=== PATIENT | female | born 1935 | race Caucasian/White ===

== ENCOUNTER 2018-04-27 11:43 | Inpatient (IN) ==
--- NOTE | 2018-04-27 12:15 | ED ---
HPI General Chief complaint: Pain: Chronic Stated complaint: Fall Time Seen by Provider: 04/27/18 11:53 Source: patient Mode of arrival: EMS Limitations: no limitations History of Present Illness HPI Narrative: The patient is a 82-year-old female who presents to the emergency department via EMS for multiple complaints. The patient states she has a history of breast cancer, bilateral, 2 different forms of breast cancer. The patient is followed by her oncologist, Dr. Sharma. The patient was taken an oral chemotherapeutic agent, however, is no longer taking oral chemotherapeutic agent. The patient was recently placed on OxyContin 2 days ago and complains of generalized pain and constipation. The patient states the medications were started 2 days ago, however, she has not had a good bowel movement in the last 5 days. The patient tried an enema at home with minimal relief. She does complain of mild nausea without any vomiting. She does complain of some generalized abdominal pain with palpation, however, denies any abdominal pain at rest. She also complains of generalized malaise and diffuse body aches. The patient states she had fluid taken off of her lungs 2 days ago , fell yesterday, but denies any injuries with the fall. 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 Symptoms are moderate. There are no current alleviating factors. The patient was noted to have an oxygen saturation level by EMS at home of 90% on room air, EMS put the patient on 4 L. On 2 L in the emergency department her O2 sat was 94%. She denies any cough, does note mild shortness of breath, but denies any accompanying chest pain. She denies any dysuria, frequency, or urgency. MD Complaint: generalized weakness and lack of energy Onset (ago): day(s) Duration: constant Location: generalized Migration: none Severity: moderate Severity scale (1-10): 5 Quality: aching Relieving factors: none Exacerbating factors: none Context: new medication and history of similar Associated symptoms: nausea/vomiting, myalgias and shortness of breath Related Data Home Medications Medication Instructions Recorded Confirmed oxycodone [OxyContin] 5 mg PO DAILY PRN 04/27/18 04/27/18 Allergies Allergy/AdvReac Type Severity Reaction Status Date / Time diatrizoate meglumine Allergy Severe HIVES Verified 04/27/18 11:53 gadobenic acid Allergy Severe HIVES Verified 04/27/18 11:53 gadodiamide Allergy Severe HIVES Verified 04/27/18 11:53 gadoteridol Allergy Severe HIVES Verified 04/27/18 11:53 iodixanol Allergy Severe HIVES Verified 04/27/18 11:53 iohexol Allergy Severe HIVES Verified 04/27/18 11:53 Review of Systems ROS: all other systems reviewed are negative [facility] Medical History Medical History Breast cancer (Acute) Surgical history unknown (Acute) Social History Social History Smoking Status: Unknown if ever smoked How Often Do You Have a Drink Containing Alcohol: Never Recent Travel in [facility] within the Last 8 Weeks: No Recent Out of Country Travel within the Last 8 Weeks: No Immunization History Tetanus Immunization: Unsure Hx Influenza Vaccine This Season: No Exam Narrative Exam Narrative: GENERAL: Awake, alert, pleasant 82-year-old female who appears her stated age and is in mild respiratory distress. SKIN: Focused skin assessment warm/dry. HEAD: Atraumatic. Normocephalic. EYES: Pupils equal and round. Pupils are 2 mm bilateral and reactive. ENT: No nasal bleeding or discharge. Upper and lower dentures are in place. NECK: Trachea midline. No JVD. CARDIOVASCULAR: Regular, tachycardic with a heart rate of 115. RESPIRATORY: No accessory muscle use. Few crackles in the right base noted. GASTROINTESTINAL: Abdomen soft, non-tender, nondistended. No rebound tenderness. Rectal exam: The exam was performed in the presence of a female nurse. No fecal impaction noted. MUSCULOSKELETAL: No obvious deformities. No clubbing. No cyanosis. No edema. NEUROLOGICAL: Awake and alert. No obvious cranial nerve deficits. Motor grossly within normal limits. Normal speech. Patient is oriented to person, place, month, year, and diabetes trainer. PSYCHIATRIC: Appropriate mood and affect; insight and judgment normal. Course Consultations Consultation #1: I discussed the patient with the residents at 2:44 PM who agree with admission. Time: 14:44 Initial Documented Vital Signs Temperature 98.3 F 04/27/18 11:55 Pulse Rate 116 H 04/27/18 11:55 Respiratory Rate 16 04/27/18 11:55 Blood Pressure 142/60 H 04/27/18 11:55 Pulse Oximetry 90 L 04/27/18 11:55 Last Documented Vital Signs Temperature 98.3 F 04/27/18 11:55 Pulse Rate 116 H 04/27/18 11:55 Respiratory Rate 16 04/27/18 11:55 Blood Pressure 142/60 H 04/27/18 11:55 Pulse Oximetry 90 L 04/27/18 11:55 Medical Decision Making MDM Narrative Medical decision making narrative: IV was established, labs are drawn and sent, the patient was placed on cardiac telemetry monitoring and continuous pulse oximetry monitoring. EKG was ordered and interpreted. Chest x-ray and x-ray of the abdomen, upright, were ordered. Rectal exam was performed, there is no fecal impaction. Lactic acid was sent to lab. UA was sent to lab. The patient was administered normal saline 500 cc as a bolus and Zofran 4 mg intravenously for her nausea. The patient's white count was elevated at 38.1. Calcium level was elevated greater than 12. The patient appears to have hypercalcemia, might be from metastatic disease. The patient was administered a second 500 cc bolus. The patient does have changes on her x-ray, possible pneumonia with elevated white count, tachycardia, and hypoxia. Therefore, the patient was covered with cefepime and Zithromax. The patient will be admitted to the on-call medical service. Medical Screen Exam Complete: Yes Emergency Medical Condition: Yes Lab Data Lab results reviewed: Yes I reviewed the patient's lab results. Lab results narrative: White count is elevated at 38.1. Calcium levels elevated greater than 12. Result diagrams: 04/27/18 12:31 04/27/18 12:31 Lab Results 04/27/18 04/27/18 04/27/18 Range/Units 12:31 12:31 13:20 WBC 38.1 H (4.0-11.0) th/mm3 RBC 4.25 (4.00-5.30) mil/mm3 Hgb 12.1 (11.6-15.3) gm/dL Hct 35.6 (35.0-46.0) % MCV 83.7 (80.0-100.0) fL MCH 28.4 (27.0-34.0) pg MCHC 33.9 (32.0-36.0) % RDW 13.1 (11.6-17.2) % Plt Count 506 H (150-450) th/mm3 MPV 7.7 (7.0-11.0) fL Prelim Diff (Auto) Slide review pending Neut % (Auto) 92.6 H (16.0-70.0) % Lymph % (Auto) 3.0 L (9.0-44.0) % Berks % (Auto) 3.9 (0.0-8.0) % Eos % (Auto) 0.1 (0.0-4.0) % Baso % (Auto) 0.4 (0.0-2.0) % Neut # (Auto) 35.3 H (1.8-7.7) th/mm3 Lymph # (Auto) 1.2 (1.0-4.8) th/mm3 Berks # (Auto) 1.5 H (0.0-0.9) th/mm3 Eos # (Auto) 0.0 (0.0-0.4) th/mm3 Baso # (Auto) 0.2 (0.0-0.2) th/mm3 WBC Differential Manual diff final Seg Neuts % (Manual) 90 H (16-70) % Band Neuts % (Manual) 3 (0-6) % Lymphocytes % (Manual) 1 L (9-44) % Monocytes % (Manual) 6 (0-8) % Abs Neuts (Manual) 35.4 H (1.8-7.7) th/mm3 Differential Comment . Toxic Vacuolation Present H (None) Platelet Estimate High H (Normal) Platelet Morphology Normal (Normal) RBC Morphology Normal (Normal) Sodium 129 L (136-145) meq/L Potassium 4.2 (3.5-5.1) meq/L Chloride 90 L (98-107) meq/L Carbon Dioxide 25.4 (21.0-32.0) meq/L Anion Gap 14 (5-15) meq/L BUN 16 (7-18) mg/dL Creatinine 1.16 H (0.50-1.00) mg/dL Estimated GFR 45 L (>89) mL/min Random Glucose 238 H (74-106) mg/dL Lactic Acid (0.4-2.0) mmol/L Calcium 12.4 H* (8.5-10.1) mg/dL Prot Corrected Calcium (8.5-10.1) mg/dL Magnesium 1.7 (1.5-2.5) mg/dL Total Bilirubin 0.5 (0.2-1.0) mg/dL AST 22 (15-37) U/L ALT 21 (10-53) U/L Alkaline Phosphatase 99 (45-117) U/L Total Creatine Kinase 60 (26-192) U/L Troponin I 0.02 (0.02-0.05) ng/mL Total Protein 6.2 L (6.4-8.2) g/dL Albumin 2.2 L (3.4-5.0) g/dL TSH 0.838 (0.358-3.740) uIU/mL Urine Color Yesenia (Yellw/Straw) Urine Clarity Cloudy H (Clear) Urine pH 5.0 (5.0-8.5) Ur Specific Breaks 1.016 (1.002-1.035) Urine Protein 30 H (Neg-Trace) mg/dL Urine Glucose (UA) 150 H (Negative) mg/dL Urine Ketones 20 (Negative) mg/dL Urine Occult Blood Negative (Negative) Urine Nitrate Negative (Negative) Urine Bilirubin Negative (Negative) Urine Urobilinogen 2.0 H (Less than 2) mg/dL Ur Leukocyte Esterase Negative (Negative) Urine RBC 3 (0-3) /hpf Urine WBC 3 (0-5) /hpf Ur Squamous Epith Cells 2 (0-5) /hpf Amorphous Sediment Rare H (None) /hpf Urine Bacteria Moderate H (None) /hpf Hyaline Casts 45 (0-3) /lpf Urine Mucus Few H (Occasional) /lpf Micro UA Comment Cath-culture ind Ur Microscopic Review Not Reportable Urine Culture Comments Cath-cult indicated 04/27/18 Range/Units 13:21 WBC (4.0-11.0) th/mm3 RBC (4.00-5.30) mil/mm3 Hgb (11.6-15.3) gm/dL Hct (35.0-46.0) % MCV (80.0-100.0) fL MCH (27.0-34.0) pg MCHC (32.0-36.0) % RDW (11.6-17.2) % Plt Count (150-450) th/mm3 MPV (7.0-11.0) fL Prelim Diff (Auto) Neut % (Auto) (16.0-70.0) % Lymph % (Auto) (9.0-44.0) % Berks % (Auto) (0.0-8.0) % Eos % (Auto) (0.0-4.0) % Baso % (Auto) (0.0-2.0) % Neut # (Auto) (1.8-7.7) th/mm3 Lymph # (Auto) (1.0-4.8) th/mm3 Berks # (Auto) (0.0-0.9) th/mm3 Eos # (Auto) (0.0-0.4) th/mm3 Baso # (Auto) (0.0-0.2) th/mm3 WBC Differential Seg Neuts % (Manual) (16-70) % Band Neuts % (Manual) (0-6) % Lymphocytes % (Manual) (9-44) % Monocytes % (Manual) (0-8) % Abs Neuts (Manual) (1.8-7.7) th/mm3 Differential Comment Toxic Vacuolation (None) Platelet Estimate (Normal) Platelet Morphology (Normal) RBC Morphology (Normal) Sodium (136-145) meq/L Potassium (3.5-5.1) meq/L Chloride (98-107) meq/L Carbon Dioxide (21.0-32.0) meq/L Anion Gap (5-15) meq/L BUN (7-18) mg/dL Creatinine (0.50-1.00) mg/dL Estimated GFR (>89) mL/min Random Glucose (74-106) mg/dL Lactic Acid 2.0 (0.4-2.0) mmol/L Calcium (8.5-10.1) mg/dL Prot Corrected Calcium (8.5-10.1) mg/dL Magnesium (1.5-2.5) mg/dL Total Bilirubin (0.2-1.0) mg/dL AST (15-37) U/L ALT (10-53) U/L Alkaline Phosphatase (45-117) U/L Total Creatine Kinase (26-192) U/L Troponin I (0.02-0.05) ng/mL Total Protein (6.4-8.2) g/dL Albumin (3.4-5.0) g/dL TSH (0.358-3.740) uIU/mL Urine Color (Yellw/Straw) Urine Clarity (Clear) Urine pH (5.0-8.5) Ur Specific Breaks (1.002-1.035) Urine Protein (Neg-Trace) mg/dL Urine Glucose (UA) (Negative) mg/dL Urine Ketones (Negative) mg/dL Urine Occult Blood (Negative) Urine Nitrate (Negative) Urine Bilirubin (Negative) Urine Urobilinogen (Less than 2) mg/dL Ur Leukocyte Esterase (Negative) Urine RBC (0-3) /hpf Urine WBC (0-5) /hpf Ur Squamous Epith Cells (0-5) /hpf Amorphous Sediment (None) /hpf Urine Bacteria (None) /hpf Hyaline Casts (0-3) /lpf Urine Mucus (Occasional) /lpf Micro UA Comment Ur Microscopic Review Urine Culture Comments Imaging Data Attestation: I personally reviewed and interpreted this imaging study as follows : My impression: Chest x-ray reveals right lower lobe effusion/infiltrate Abdominal x-ray reveals right lower lobe effusion/infiltrate. No evidence of obstruction. Radiologist's impression: Abdomen X-Ray 04/27/18 12:06 CONCLUSION: 1. No acute abnormalities. 2. Right basilar pleural-parenchymal density. 3. Chest X-Ray 04/27/18 12:06 CONCLUSION: 1. Right basilar pleural-parenchymal density as seen on previous study. 2. Nodule left lower lobe. ECG Data EKG Prior to Arrival: No Attestation: I personally reviewed and interpreted this ECG as follows: Interpretation: EKG reveals sinus tachycardia with a heart rate of 104. Nonspecific T-wave changes. Discharge Plan Discharge Disposition Patient Disposition: 30 Still Patient Discharge Condition Condition: Stable Discharge Details Diagnosis: Sepsis, Pneumonia, Hypercalcemia, Leukocytosis Physicians Team ED Provider: Giovany Carrillo Primary Care Provider: Milana Mendez Rxs /Orders / Referrals /Forms Prescriptions: No Action oxycodone [OxyContin] 10 mg Tablet,Oral Only,Ext.Rel.12 Hr 5 mg PO DAILY PRN (Reason: Pain) RF: 0 Status ED Status: Pending Admission
--- NOTE | 2018-04-27 12:47 | XR ---
EXAM DATE: 04/27/2018 12:42 PM EDT AGE/SEX: 82 years / Female INDICATIONS: Chest pain, shortness of breath and cough. CLINICAL DATA: This is the patient's subsequent encounter. Patient reports that signs and symptoms h ave been present for 3 days and indicates a pain score of 5/10. MEDICAL/SURGICAL HISTORY: Carcinoma, breast. None. COMPARISON: [facility], CHEST EXPIRATION ONLY, 04/25/2018. [facility], CT CHEST W/O CONTRAST, 04/23/2018. . FINDINGS: A single AP view of the chest demonstrates right basilar pleural-parenchymal density. Left lung base clear. Nodule in the left lower lobe. The cardiomediastinal contours are unremarkable. Osseous stru ctures are intact. CONCLUSION: 1. Right basilar pleural-parenchymal density as seen on previous study. 2. Nodule left lower lobe. Electronically signed by: Kashif Small MD 04/27/2018 12:46 PM EDT
--- NOTE | 2018-04-27 12:48 | XR ---
EXAM DATE: 04/27/2018 12:43 PM EDT AGE/SEX: 82 years / Female INDICATIONS: Abdominal pain. Patient fell 3 days ago. CLINICAL DATA: This is the patient's initial encounter. Patient reports that signs and symptoms have been present for 3 days and indicates a pain score of 6/10. MEDICAL/SURGICAL HISTORY: Carcinoma, breast. None. COMPARISON: No prior exams available for comparison. FINDINGS: A single erect view of the abdomen demonstrates right basilar pleural-parenchymal density.No evidence of free intraperitoneal gas.The visualized bowel loops are unremarkable. Residual contrast in the ri ght colon. Lower abdomen is not included within the image CONCLUSION: 1. No acute abnormalities. 2. Right basilar pleural-parenchymal density. 3. Electronically signed by: Kashif Small MD 04/27/2018 12:47 PM EDT
[2018-04-27 12:55] LABS: Baso # (Auto) 0.2 th/mm3 (0.0-0.2); Baso % (Auto) 0.4 % (0.0-2.0); Eos % (Auto) 0.1 % (0.0-4.0); Hematocrit 35.6 % (35.0-46.0); Hemoglobin 12.1 gm/dL (11.6-15.3); Lymph # (Auto) 1.2 th/mm3 (1.0-4.8); Mean Corpuscular HGB Conc 33.9 % (32.0-36.0); Mean Corpuscular Hemoglobin 28.4 pg (27.0-34.0); Mean Corpuscular Volume 83.7 fL (80.0-100.0); Mean Platelet Volume 7.7 fL (7.0-11.0); Mono # (Auto) 1.5 th/mm3 (0.0-0.9); Mono % (Auto) 3.9 % (0.0-8.0); Neut # (Auto) 35.3 th/mm3 (1.8-7.7); Neut % (Auto) 92.6 % (16.0-70.0); Platelet Count 506 th/mm3 (150-450); Red Blood Count 4.25 mil/mm3 (4.00-5.30); Red Cell Distribution Width 13.1 % (11.6-17.2); White Blood Count 38.1 th/mm3 (4.0-11.0)
[2018-04-27] MEDS ORDERED: Sodium Chlor 0.9% Inj 500 ML IV.SIG SCH ×2 (13:00→14:00)
[2018-04-27] MEDS ORDERED: Azithromycin Inj 500 MG in Sodium Chlor 0.9% Inj 250 ML IV.SIG ONE (13:09)
[2018-04-27 13:28] LABS: Lymphocytes 1 % (9-44); Monocytes 6 % (0-8)
[2018-04-27 13:29] LABS: Albumin 2.2 g/dL (3.4-5.0); Carbon Dioxide 25.4 meq/L (21.0-32.0); Magnesium 1.7 mg/dL (1.5-2.5); Platelet Morphology Normal (Normal); Potassium 4.2 meq/L (3.5-5.1); Toxic Vacuolation Present
[2018-04-27 13:30] LABS: RBC Morphology Normal (Normal)
[2018-04-27 13:40] LABS: Thyroid Stimulating Hormone 0.838 uIU/mL (0.358-3.740); Total Protein 6.2 g/dL (6.4-8.2); Troponin I 0.02 ng/mL (0.02-0.05)
[2018-04-27 13:43] LABS: Calcium 12.4 mg/dL (8.5-10.1)
[2018-04-27 14:01] LABS: Amorphous Sediment,Urine Rare /hpf; Bacteria,Urine Moderate /hpf; Bilirubin,Urine Negative (Negative); Clarity,Urine Cloudy (Clear); Color,Urine Amber (Yellw/Straw); Glucose,Urine (UA) 150 mg/dL (Negative); Hyaline Casts,Urine 45 /lpf (0-3); Leukocyte Esterase,Urine Negative (Negative); Mucus,Urine Few /lpf (Occasional); Nitrite,Urine Negative (Negative); Specific Gravity,Urine 1.016 (1.002-1.035); Squamous Epithelial Cell,Urine 2 /hpf (0-5)
--- NOTE | 2018-04-27 14:57 | P.HPFP ---
History of Present Illness Primary Care Physician: Milana Mendez MD <Ronel Burton - 04/28/18 15:05> Milana Mendez MD <Roberta Murray 04/27/18 14:56> Chief Complaint: Weakness and shortness of breath <Roberta Murray 04/27/18 15:41> History of Present Illness: 82 year old female PMH bilateral breast cancer presents with continued weakness and shortness of breath. She was discharged this week from hospital after right pleural effusion thoracentesis. She said when she got home she was too nauseous to eat and had difficulty walking and standing from fatigue. This morning she was too weak to put in her dentures and started to fall grabbing the toilet and lowering herself to the ground. She crawled out of the bathroom and had the EMS bring her to the hospital. She says the shortness of breath is with activity. She has some intermittent chest pain that is unchanged from her earlier admission and reproducible with pressing on her chest. She has been drinking well but not eating. She had some fever at night. No change in frequency of urination, but noticed urine darker in color. She has had 5-6 days of constipation. She usually goes every other day. She tried laxatives and an enema with no relief. She's been taking the oxycodone prescribed to her this week when she was discharged for her chest pain. She was first diagnosed with breast cancer in 2009. She was receiving oral chemo therapy until a month ago when she started having weakness and shortness of breath so her oncologist, Dr. Sharma had her stop active treatment. She lives at home and takes care of her brother. Denies any drug, alcohol, or tobacco use. <Roberta Murray 04/27/18 16:34> - Diagnosis (1) Sepsis (2) Shortness of breath (3) Hypercalcemia (4) Weakness (5) Constipation (6) Bilateral breast cancer (7) Nutrition, metabolism, and development symptoms <Ronel Burton - 04/28/18 15:05> (1) Sepsis (2) Shortness of breath (3) Hypercalcemia (4) Weakness (5) Constipation (6) Bilateral breast cancer (7) Nutrition, metabolism, and development symptoms <Roberta Murray 04/27/18 16:23> Inpatient Certification: I certify that the inpatient services were ordered in accordance with Medicare regulations governing the order. This includes certification that hospital inpatient services are reasonable and necessary and in the case of services not specified as inpatient-only under 42 CFR 419.22(n), that they are appropriately provided as inpatient services in accordance to with the 2-midnight benchmark under 43 CFR 412.3(e) <MichealJovonRonel Geni 04/28/18 15:05> Review of Systems Constitutional: Reports chills, Reports fever(s), Reports weakness <Trevor Roberta James Bebo 04/27/18 15:19> Eyes: Denies change in vision <TrevorRoberta Jacob Bebo 04/27/18 15:19> Ears, Nose, Mouth, and Throat: Reports headache(s) <TrevorRoberta Jacob Bebo 15:19> Cardiovascular: Reports chest pain, Reports shortness of breath <Roberta Murray Jacob Bebo 04/27/18 15:19> Respiratory: Reports cough <Roberta Murray Jacob Bebo 04/27/18 15:19> Gastrointestinal: Reports constipation, Reports nausea, Denies abdominal pain, Denies vomiting <TrevorRoberta Jacob Bebo 04/27/18 15:19> Genitourinary: Denies painful urination, Denies urinary urgency <Roberta Murray 04/27/18 15:19> Comments: dark color urine <Roberta Murray Jacob Bebo 04/27/18 15:19> Musculoskeletal: Reports muscle weakness <Roberta Murray 04/27/18 15:19> Hematologic/Lymphatic: Denies easy bruising <Roberta Murray 04/27/18 15:19> PMFSH - History History 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, 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 <TrevorRoberta Jacbo Bebo 04/27/18 14: 56> - Medical / Surgical Hx Neg / Unobtainable Surgical History: No Previous Surgery <Roberta Murray 04/27/18 16:08> - Medical History Medical History: Medical History (Last Updated 04/27/18 @ 11:57 by Keira Thrasher) Breast cancer Surgical history unknown <MichealRonel M - 04/28/18 15:05> Medical History (Last Updated 04/27/18 @ 11:57 by Keira Thrasher) Breast cancer Surgical history unknown <Roberta Murray Jacob - 04/27/18 14:56> - Tobacco History Smoking Status: Unknown if ever smoked <TrevorRoberta James - 04/27/18 14:56> - Alcohol History How Often Do You Have a Drink Containing Alcohol: Never <Chuckie Murrayluis James - 14:56> - Travel History Recent Travel in the [facility] Within the Last 8 Weeks: No <TrevorRoberta - 14:56> Recent Travel Out of the Country Within the Last 8 Weeks: No <TrevorRoberta James - 04/27/18 14:56> - Immunization History Tetanus Immunization: Unsure <TrevorRoberta James - 04/27/18 14:56> Hx Influenza Vaccine This Season: No <TrevorRoberta - 04/27/18 14:56> Medications and Allergies Allergies Allergy/AdvReac Type Severity Reaction Status Date / Time diatrizoate meglumine Allergy Severe HIVES Verified 04/27/18 11:53 gadobenic acid Allergy Severe HIVES Verified 04/27/18 11:53 gadodiamide Allergy Severe HIVES Verified 04/27/18 11:53 gadoteridol Allergy Severe HIVES Verified 04/27/18 11:53 iodixanol Allergy Severe HIVES Verified 04/27/18 11:53 iohexol Allergy Severe HIVES Verified 04/27/18 11:53 <Ronel Burton - 04/28/18 15:05> Home Medications Medication Instructions Recorded Confirmed Type oxycodone [OxyContin] 5 mg PO DAILY PRN 04/27/18 04/27/18 History <Ronel Burton - 04/28/18 15:05> Active Medications: Active Medications Acetaminophen (Tylenol) 650 mg PO Q4H PRN PRN Reason: PAIN 1-10 AND/OR FEVER >101F Last Admin: 04/28/18 04:18 Dose: 650 mg Al Hydroxide/Mg Hydroxide (Milk Of Magnesia Liq) 30 ml PO Q12H PRN PRN Reason: Mild Constipation Bisacodyl (Dulcolax Supp) 10 mg RECTAL DAILY PRN PRN Reason: SEVERE CONSITIPATION Enoxaparin Sodium (Lovenox Inj) 40 mg SQ Q24H COOPER Last Admin: 04/27/18 18:49 Dose: Not Given Sodium Chloride (Ns Inj) 500 mls @ 0 mls/hr IV.SIG BOLUS COOPER Last Infusion: 04/27/18 14:14 Dose: Infused Sodium Chloride (Ns Inj) 500 mls @ 0 mls/hr IV.SIG BOLUS COOPER Last Infusion: 04/27/18 15:46 Dose: Infused Sodium Chloride (Ns Inj) 1,000 mls @ 150 mls/hr IV.CONT .Q6H40M COOPER Last Admin: 04/28/18 12:15 Dose: Not Given Azithromycin 500 mg/ Sodium (Chloride) 250 mls @ 250 mls/hr IV.SIG Q24H COOPER Cefepime HCl 2,000 mg/ Sodium (Chloride) 100 mls @ 200 mls/hr IV.SIG Q8H COOPER Last Infusion: 04/28/18 10:27 Dose: Infused Ondansetron HCl (Zofran Odt) 4 mg PO Q6H PRN PRN Reason: NAUSEA Senna/Docusate Sodium (So-Colace) 1 tab PO BID COOPER Last Admin: 04/28/18 09:44 Dose: 1 tab Sennosides (Senokot) 17.2 mg PO Q12H PRN PRN Reason: Moderate Constipation Sodium Chloride (Ns Flush) 2 ml IV.FLUSH PRN PRN PRN Reason: FLUSH AFTER USING IV ACCESS <Ronel Burton - 04/28/18 15:05> Active Medications Sodium Chloride (Ns Inj) 500 mls @ 0 mls/hr IV.SIG BOLUS COOPER Last Infusion: 04/27/18 14:14 Dose: Infused Sodium Chloride (Ns Inj) 500 mls @ 0 mls/hr IV.SIG BOLUS COOPER Last Admin: 04/27/18 14:30 Dose: 999 mls/hr Sodium Chloride (Ns Flush) 2 ml IV.FLUSH PRN PRN PRN Reason: FLUSH AFTER USING IV ACCESS <Roberta Murray - 04/27/18 14:56> Exam Vital signs: Vital Signs 04/27/18 16:00 04/27/18 20:00 04/27/18 20:15 Temperature 97.6 F 97.9 F Pulse Rate 102 H 103 H 104 H Respiratory Rate 19 18 Blood Pressure 141/61 H 154/65 H Pulse Oximetry 96 96 04/27/18 21:40 08/26/18 00:00 04/28/18 03:56 Temperature 97.6 F Pulse Rate 100 H 105 H Respiratory Rate 22 18 24 Blood Pressure 161/72 H Pulse Oximetry 97 97 04/28/18 04:00 04/28/18 04:01 04/28/18 04:02 Temperature 98.3 F Pulse Rate 105 H 95 H Respiratory Rate 18 Blood Pressure 129/62 Pulse Oximetry 94 L 94 L 04/28/18 08:00 04/28/18 12:00 Temperature 97.5 F L 98.4 F Pulse Rate 94 H 100 H Respiratory Rate 17 18 Blood Pressure 125/57 L 162/71 H Pulse Oximetry 95 94 L Intake & Output 04/27/18 04/28/18 04/28/18 18:59 06:59 18:59 Intake Total 1780 / 1780 1583 / 1583 100 / 100 Output Total 350 / 350 Balance 1780 / 1780 1233 / 1233 100 / 100 Intake: IV 1300 / 1300 1103 / 1103 100 / 100 NS Inj 1,000 ML @ 150 mls/hr IV 703 / 703 .CONT .Q6H40M [facility] Rx#:[id number] Azithromycin Inj 500 MG In NS 200 / 200 Inj 250 ML @ 250 mls/hr IV.SIG ONCE ONE Rx#:[id number] Maxipime Inj 2,000 MG In NS Inj 100 / 100 200 / 200 100 / 100 100 ML @ 200 mls/hr IV.SIG Q8H COOPER Rx#:[id number] NS Inj 500 ML @ Wide Open IV. 1000 / 1000 SIG BOLUS COOPER Rx#:[id number] Oral 480 / 480 480 / 480 Output: Urine 350 / 350 Other: # Incontinent Voids 1 Date of Last Bowel Movement 04/26/18 04/26/18 # Bowel Movements 0 <Ronel Burton M - 04/28/18 15:05> Vital Signs 04/27/18 11:55 Temperature 98.3 F Pulse Rate 116 H Respiratory Rate 16 Blood Pressure 142/60 H Pulse Oximetry 90 L Intake & Output 04/26/18 04/27/18 04/27/18 18:59 06:59 18:59 Intake Total 600 / 600 Balance 600 / 600 Intake: IV 600 / 600 Maxipime Inj 2,000 MG In NS Inj 100 / 100 100 ML @ 200 mls/hr IV.SIG ONCE ONE Rx#:[id number] NS Inj 500 ML @ Wide Open IV. 500 / 500 SIG BOLUS COOPER Rx#:[id number] <TrevorRoberta James - 04/27/18 14:56> Narrative: GENERAL: Alert and oriented X3 SKIN: Warm and dry. HEAD: Atraumatic. Normocephalic. EYES: Pupils equal and round. No scleral icterus. No injection or drainage. ENT: No nasal bleeding or discharge. Mucous membranes pink and moist. NECK: Trachea midline. No JVD. CARDIOVASCULAR: Tachycardic. no murmurs or gallops. RESPIRATORY: No accessory muscle use. Dullness to percussion of right side lower half of lung velazquez. No crackles wheezes. Diminished lung sounds on the right side. GASTROINTESTINAL: Abdomen soft, non-tender, nondistended. Hepatic and splenic margins not palpable. MUSCULOSKELETAL: Extremities without clubbing, cyanosis, or edema. No obvious deformities. 2+ dorsalis and tibialis pulses NEUROLOGICAL: Awake and alert. No obvious cranial nerve deficits. Motor grossly within normal limits. Five out of 5 muscle strength in the arms and legs. Normal speech. PSYCHIATRIC: Appropriate mood and affect; insight and judgment normal. <Roberta Murray - 04/27/18 16:18> Results - Labs Result diagrams: 04/28/18 04:47 04/28/18 04:49 <Ronel Burton - 04/28/18 15:05> Abnormal lab results 04/28/18 04/28/18 Range/Units 04:47 04:49 WBC 43.7 H (4.0-11.0) th/mm3 RBC 3.99 L (4.00-5.30) mil/mm3 Hgb 11.2 L (11.6-15.3) gm/dL Hct 33.2 L (35.0-46.0) % Plt Count 493 H (150-450) th/mm3 Neut % (Auto) 89.0 H (16.0-70.0) % Lymph % (Auto) 5.8 L (9.0-44.0) % Neut # (Auto) 38.9 H (1.8-7.7) th/mm3 [place] # (Auto) 2.1 H (0.0-0.9) th/mm3 Seg Neuts % (Manual) 85 H (16-70) % Lymphocytes % (Manual) 6 L (9-44) % Abs Neuts (Manual) 39.8 H (1.8-7.7) th/mm3 Toxic Granulation 1+ H (None) Toxic Vacuolation Present H (None) Platelet Estimate High H (Normal) Sodium 131 L (136-145) meq/L Chloride 95 L (98-107) meq/L Estimated GFR 68 L (>89) mL/min Random Glucose 182 H (74-106) mg/dL Calcium 12.1 H* (8.5-10.1) mg/dL Total Protein 5.7 L (6.4-8.2) g/dL Short CBC 04/28/18 Range/Units 04:47 WBC 43.7 H (4.0-11.0) th/mm3 Hgb 11.2 L (11.6-15.3) gm/dL Hct 33.2 L (35.0-46.0) % Plt Count 493 H (150-450) th/mm3 [facility] 04/28/18 04:49 Sodium 131 L Potassium 4.0 Chloride 95 L Carbon Dioxide 25.5 BUN 14 Creatinine 0.80 Calcium 12.1 H* <Ronel Burton - 04/28/18 15:05> Abnormal lab results 04/27/18 04/27/18 04/27/18 Range/Units 12:31 12:31 13:20 WBC 38.1 H (4.0-11.0) th/mm3 Plt Count 506 H (150-450) th/mm3 Neut % (Auto) 92.6 H (16.0-70.0) % Lymph % (Auto) 3.0 L (9.0-44.0) % Neut # (Auto) 35.3 H (1.8-7.7) th/mm3 [place] # (Auto) 1.5 H (0.0-0.9) th/mm3 Seg Neuts % (Manual) 90 H (16-70) % Lymphocytes % (Manual) 1 L (9-44) % Abs Neuts (Manual) 35.4 H (1.8-7.7) th/mm3 Toxic Vacuolation Present H (None) Platelet Estimate High H (Normal) Sodium 129 L (136-145) meq/L Chloride 90 L (98-107) meq/L Creatinine 1.16 H (0.50-1.00) mg/dL Estimated GFR 45 L (>89) mL/min Random Glucose 238 H (74-106) mg/dL Calcium 12.4 H* (8.5-10.1) mg/dL Total Protein 6.2 L (6.4-8.2) g/dL Albumin 2.2 L (3.4-5.0) g/dL Urine Clarity Cloudy H (Clear) Urine Protein 30 H (Neg-Trace) mg/dL Urine Glucose (UA) 150 H (Negative) mg/dL Urine Urobilinogen 2.0 H (Less than 2) mg/dL Amorphous Sediment Rare H (None) /hpf Urine Bacteria Moderate H (None) /hpf Urine Mucus Few H (Occasional) /lpf Short CBC 04/27/18 Range/Units 12:31 WBC 38.1 H (4.0-11.0) th/mm3 Hgb 12.1 (11.6-15.3) gm/dL Hct 35.6 (35.0-46.0) % Plt Count 506 H (150-450) th/mm3 BMP 04/27/18 12:31 Sodium 129 L Potassium 4.2 Chloride 90 L Carbon Dioxide 25.4 BUN 16 Creatinine 1.16 H Calcium 12.4 H* Cardiac Enzymes 04/27/18 Range/Units 12:31 Total Creatine Kinase 60 (26-192) U/L Troponin I 0.02 (0.02-0.05) ng/mL Liver Function 04/27/18 Range/Units 12:31 Total Bilirubin 0.5 (0.2-1.0) mg/dL AST 22 (15-37) U/L ALT 21 (10-53) U/L Alkaline Phosphatase 99 (45-117) U/L Albumin 2.2 L (3.4-5.0) g/dL Urine 04/27/18 Range/Units 13:20 Urine Color Yesenia (Yellw/Straw) Urine Clarity Cloudy H (Clear) Urine pH 5.0 (5.0-8.5) Ur Specific [place] 1.016 (1.002-1.035) Urine Protein 30 H (Neg-Trace) mg/dL Urine Glucose (UA) 150 H (Negative) mg/dL <Roberta Murray - 04/27/18 14:56> - Imaging Impressions Abdomen X-Ray 04/27/18 12:06 CONCLUSION: 1. No acute abnormalities. 2. Right basilar pleural-parenchymal density. 3. Chest X-Ray 04/27/18 12:06 CONCLUSION: 1. Right basilar pleural-parenchymal density as seen on previous study. 2. Nodule left lower lobe. <Roberta Murray - 04/27/18 14:56> Caprini VTE Risk Assessment Caprini VTE Risk Assessment: Moderate/High Risk (score >= 2) <Roberta Murray - 04/27/18 16:08> Caprini Risk Assessment Model: Point Value = 1 Point Value = 2 Point Value = 3 Point Value = 5 Age 41-60 Minor surgery BMI > 25 kg/m2 Swollen legs Varicose veins or History of unexplained or recurrent spontaneous Oral contraceptives or hormone replacement Sepsis (< 1 month) Serious lung disease, including pneumonia (< 1 month) Abnormal pulmonary function Acute myocardial infarction Congestive heart failure (< 1 month) History of inflammatory bowel disease Medical patient at bed rest Age 61-74 Arthroscopic surgery Major open surgery (> 45 min) Laparoscopic surgery (> 45 min) Malignancy Confined to bed (> 72 hours) Immobilizing plaster cast Central venous access Age >= 75 History of VTE Family history of VTE Factor V Leiden Prothrombin [id number] Lupus anticoagulant Anticardiolipin antibodies Elevated serum homocysteine Heparin-induced thrombocytopenia Other congenital or acquired thrombophilia Stroke (< 1 month) Elective arthroplasty Hip, pelvis, or leg fracture Acute spinal cord injury (< 1 month) <Ronel Burton - 04/28/18 15:05> Point Value = 1 Point Value = 2 Point Value = 3 Point Value = 5 Age 41-60 Minor surgery BMI > 25 kg/m2 Swollen legs Varicose veins or History of unexplained or recurrent spontaneous Oral contraceptives or hormone replacement Sepsis (< 1 month) Serious lung disease, including pneumonia (< 1 month) Abnormal pulmonary function Acute myocardial infarction Congestive heart failure (< 1 month) History of inflammatory bowel disease Medical patient at bed rest Age 61-74 Arthroscopic surgery Major open surgery (> 45 min) Laparoscopic surgery (> 45 min) Malignancy Confined to bed (> 72 hours) Immobilizing plaster cast Central venous access Age >= 75 History of VTE Family history of VTE Factor V Leiden Prothrombin [id number] Lupus anticoagulant Anticardiolipin antibodies Elevated serum homocysteine Heparin-induced thrombocytopenia Other congenital or acquired thrombophilia Stroke (< 1 month) Elective arthroplasty Hip, pelvis, or leg fracture Acute spinal cord injury (< 1 month) <Roberta Murray - 04/27/18 14:56> Prophylaxis Regimen: Total Risk Factor Score Risk Level Prophylaxis Regimen 0-1 Low Early ambulation 2 Moderate Order ONE of the following: *Sequential Compression Device (SCD) *Heparin 5000 units SQ BID 3-4 Higher Order ONE of the following medications: *Heparin 5000 units SQ TID *Enoxaparin/Lovenox 40 mg SQ daily (WT < 150 kg, CrCl > 30 mL/min) *Enoxaparin/Lovenox 30 mg SQ daily (WT < 150 kg, CrCl > 10-29 mL/min) *Enoxaparin/Lovenox 30 mg SQ BID (WT < 150 kg, CrCl > 30 mL/min) AND/OR *Sequential Compression Device (SCD) 5 or more Highest Order ONE of the following medications: *Heparin 5000 units SQ TID (Preferred with Epidurals) *Enoxaparin/Lovenox 40 mg SQ daily (WT < 150 kg, CrCl > 30 mL/min) *Enoxaparin/Lovenox 30 mg SQ daily (WT < 150 kg, CrCl > 10-29 mL/min) *Enoxaparin/Lovenox 30 mg SQ BID (WT < 150 kg, CrCl > 30 mL/min) AND *Sequential Compression Device (SCD) <Ronel Burton - 04/28/18 15:05> Total Risk Factor Score Risk Level Prophylaxis Regimen 0-1 Low Early ambulation 2 Moderate Order ONE of the following: *Sequential Compression Device (SCD) *Heparin 5000 units SQ BID 3-4 Higher Order ONE of the following medications: *Heparin 5000 units SQ TID *Enoxaparin/Lovenox 40 mg SQ daily (WT < 150 kg, CrCl > 30 mL/min) *Enoxaparin/Lovenox 30 mg SQ daily (WT < 150 kg, CrCl > 10-29 mL/min) *Enoxaparin/Lovenox 30 mg SQ BID (WT < 150 kg, CrCl > 30 mL/min) AND/OR *Sequential Compression Device (SCD) 5 or more Highest Order ONE of the following medications: *Heparin 5000 units SQ TID (Preferred with Epidurals) *Enoxaparin/Lovenox 40 mg SQ daily (WT < 150 kg, CrCl > 30 mL/min) *Enoxaparin/Lovenox 30 mg SQ daily (WT < 150 kg, CrCl > 10-29 mL/min) *Enoxaparin/Lovenox 30 mg SQ BID (WT < 150 kg, CrCl > 30 mL/min) AND *Sequential Compression Device (SCD) <Roberta Murray - 04/27/18 14:56> Assessment and Plan - Assessment (1) Sepsis Code(s): A41.9 - Sepsis, unspecified organism Status: Acute (2) Shortness of breath Code(s): R06.02 - Shortness of breath Status: Acute (3) Hypercalcemia Code(s): E83.52 - Hypercalcemia Status: Acute (4) Weakness Code(s): R53.1 - Weakness Status: Acute (5) Constipation Code(s): K59.00 - Constipation, unspecified Status: Acute (6) Bilateral breast cancer Code(s): C50.911 - Malignant neoplasm of unspecified site of right female breast ; C50.912 - Malignant neoplasm of unspecified site of left female breast Status: Acute (7) Nutrition, metabolism, and development symptoms Code(s): R63.8 - Other symptoms and signs concerning food and fluid intake Status: Acute <Ronel Burton - 04/28/18 15:05> (1) Sepsis Code(s): A41.9 - Sepsis, unspecified organism Status: Acute Plan: Admission WBC 38.1 and tachycardic. Elevated WBC ddx pneumonia or malignancy -1 L bolus saline -UA negative nitrate leuk esterase few WBC -lactic acid 2.0 -Chest X-ray: Right basilar pleural-parenchymal density as seen on previous study. Nodule left lower lobe. -daily CBC and BMP -Fluids 150 mL/hr -BCX pending (2) Shortness of breath Code(s): R06.02 - Shortness of breath Status: Acute Plan: Continued shortness of breath since discharge earlier this week for a right pleural effusion status post thoracentesis. DDX continued pleural effusion, pneumonia, malignancy. Troponin .02. Chest X-ray: Right basilar pleural- parenchymal density as seen on previous study. Nodule left lower lobe. -O2 as needed -IV antibiotics cefepime 2 g q 8hrs for 7 days and azithromycin 500 mg for at least 3 days (started 04/27) (3) Hypercalcemia Code(s): E83.52 - Hypercalcemia Status: Acute Plan: Calcium at admission 12.4. DDX malignancy, dehydration. Received 1 L bolus -NS 150 mL/hr (4) Weakness Code(s): R53.1 - Weakness Status: Acute Plan: Most likely due to hypercalcemia, dehydration, and malignancy. -See workup for hypercalcemia -PT OT consult (5) Constipation Code(s): K59.00 - Constipation, unspecified Status: Acute Plan: No bowel movement for 5-6 days usually goes every other day. DDx hypercalcemia, medication effect of oxycodone, malignancy, ileus -Abdominal x-ray: No evidence of free intraperitoneal gas.The visualized bowel loops are unremarkable. -PRN milk of mag; so-colace, ducolax, (6) Bilateral breast cancer Code(s): C50.911 - Malignant neoplasm of unspecified site of right female breast ; C50.912 - Malignant neoplasm of unspecified site of left female breast Status: Acute Plan: Not actively being treated. Followed by Dr. Sharma -Oncology consult (7) Nutrition, metabolism, and development symptoms Code(s): R63.8 - Other symptoms and signs concerning food and fluid intake Status: Acute Plan: Diet: Regular Prophylaxis: Lovenox Electrolytes: Replete as needed <Roberta Murray - 04/27/18 16:23> - Assessment and Plan 82 year old female PMH bilateral breast cancer presented with continued weakness and shortness of breath. Earlier this week discharged after a right thoracentesis for R pleural effusion. Was given oxycodone on discharged. Constipation for 5-6 days. On admission septic with WBC 38.1 and tachycardia. Hypercalcemic 12.4. Was given 1 L NS bolus and started on cefepime and azithromycin for possible pneumonia. Put on 2 L NC. Abdominal x-ray: No evidence of free intraperitoneal gas.The visualized bowel loops are unremarkable. Chest X-ray: Right basilar pleural-parenchymal density as seen on previous study. Nodule left lower lobe. UA negative nitrates, leuk esterase, and few WBC. Blood cultures drawn. Oncology consulted. Disposition: unknown Discharge: unknown Discussed with Dr. Burton <Roberta Murray - 04/27/18 16:18> - Attending Attestation The exam, history, and the medical decision-making described in the above note were completed with the assistance of the resident physician. I reviewed and agree with the findings presented. I attest that I had a [id number] encounter with the patient on the same day, and personally performed and documented my assessment and findings in the medical record. Ms. Alegre was seen and examined when she came in the emergency department with her resident admitting team. She expressed some regrets about her current illness and worsening of her condition. She stated she did not have a will and had not completely thought through what she would need to do as she approached the end of her life. <Ronel Burton - 04/28/18 15:05> <Roberta Murray - Last Filed: 04/27/18 16:23> (1) Sepsis Qualifiers: Sepsis type: sepsis due to unspecified organism Qualified Code(s): A41.9 - Sepsis, unspecified organism <Ronel Burton M - Last Filed: 04/28/18 15:05> (1) Sepsis Qualifiers: Sepsis type: sepsis due to unspecified organism Qualified Code(s): A41.9 - Sepsis, unspecified organism <Roberta Murray - Last Filed: 04/27/18 16:23> (1) Sepsis Qualifiers: Sepsis type: sepsis due to unspecified organism Qualified Code(s): A41.9 - Sepsis, unspecified organism <Ronel Burton - Last Filed: 04/28/18 15:05> (1) Sepsis Qualifiers: Sepsis type: sepsis due to unspecified organism Qualified Code(s): A41.9 - Sepsis, unspecified organism
[2018-04-27] MEDS ORDERED: Bisacodyl 10 MG Supp RECTAL PRN (15:25)
[2018-04-27] MEDS: Sod Chloride 0.9% Inj 1,000 ML IV.CONT SCH (18:48)
[2018-04-27] MEDS: Enoxaparin Inj 40 MG/0.4 ML Syringe SQ SCH (18:49)
[2018-04-27] MEDS: Senna/Docusate Sodium 8.6/50 MG Tablet PO SCH (21:37)
[2018-04-28] MEDS: Sod Chloride 0.9% Inj 1,000 ML IV.CONT SCH ×4 (02:08→18:53)
[2018-04-28] MEDS: Acetaminophen 325 MG Tablet PO PRN ×2 (04:18→20:56)
[2018-04-28 05:48] LABS: Baso # (Auto) 0.2 th/mm3 (0.0-0.2); Baso % (Auto) 0.4 % (0.0-2.0); Eos # (Auto) 0.1 th/mm3 (0.0-0.4); Eos % (Auto) 0.1 % (0.0-4.0); Hematocrit 33.2 % (35.0-46.0); Hemoglobin 11.2 gm/dL (11.6-15.3); Lymph # (Auto) 2.5 th/mm3 (1.0-4.8); Lymph % (Auto) 5.8 % (9.0-44.0); Mean Corpuscular HGB Conc 33.8 % (32.0-36.0); Mean Corpuscular Volume 83.1 fL (80.0-100.0); Mean Platelet Volume 7.3 fL (7.0-11.0); Mono # (Auto) 2.1 th/mm3 (0.0-0.9); Mono % (Auto) 4.7 % (0.0-8.0); Neut # (Auto) 38.9 th/mm3 (1.8-7.7); Platelet Count 493 th/mm3 (150-450); Red Blood Count 3.99 mil/mm3 (4.00-5.30); Red Cell Distribution Width 13.3 % (11.6-17.2); White Blood Count 43.7 th/mm3 (4.0-11.0)
[2018-04-28 06:36] LABS: Anion Gap 11 meq/L (5-15); Blood Urea Nitrogen 14 mg/dL (7-18); Carbon Dioxide 25.5 meq/L (21.0-32.0); Chloride 95 meq/L (98-107); Glomerular Filtration Rate 68 mL/min (>89); Glucose,Random 182 mg/dL (74-106); Sodium 131 meq/L (136-145)
[2018-04-28 07:49] LABS: Total Protein 5.7 g/dL (6.4-8.2)
[2018-04-28 08:05] LABS: Calcium 12.1 mg/dL (8.5-10.1)
[2018-04-28 08:46] LABS: Lymphocytes 6 % (9-44); Metamyelocytes 1 % (0-1); Monocytes 3 % (0-8); Platelet Morphology Normal (Normal); RBC Morphology Normal (Normal)
[2018-04-28 08:47] LABS: Toxic Granulation 1+; Toxic Vacuolation Present
[2018-04-28] MEDS: Senna/Docusate Sodium 8.6/50 MG Tablet PO SCH ×2 (09:44→20:56)
--- NOTE | 2018-04-28 10:06 | P.HPFP ---
History of Present Illness Primary Care Physician: Milana Mendez MD Chief Complaint: Weakness and shortness of breath History of Present Illness: 82 year old female PMH bilateral breast cancer presents with continued weakness and shortness of breath. She was discharged this week from hospital after right pleural effusion thoracentesis. She said when she got home she was too nauseous to eat and had difficulty walking and standing from fatigue. The morning of admission she was too weak to put in her dentures and started to fall grabbing the toilet and lowering herself to the ground. She crawled out of the bathroom and had the EMS bring her to the hospital. She says the shortness of breath is with activity. She has some intermittent chest pain that is unchanged from her earlier admission and reproducible with pressing on her chest. She has been drinking well but not eating. She had some fever at night. No change in frequency of urination, but noticed urine darker in color. She has had 5-6 days of constipation. She usually goes every other day. She tried laxatives and an enema with no relief. She's been taking the oxycodone prescribed to her this week when she was discharged for her chest pain. She was first diagnosed with breast cancer in 2009. She was receiving oral chemo therapy until a month ago when she started having weakness and shortness of breath so her oncologist, Dr. Sharma had her stop active treatment. She lives at home and takes care of her brother. Denies any drug, alcohol, or tobacco use. She has an extremely high white count out of proportion to any sort of obvious infection. When asked she has not had any recent injections suggestive of Neupogen or other similar products. She does have a long history of breast cancer but with her new symptoms of fever or sweating high calcium as well as very elevated white count she could be moving into a new illness besides the breast cancer. - Diagnosis (1) Sepsis (2) Shortness of breath (3) Hypercalcemia (4) Weakness (5) Constipation (6) Bilateral breast cancer (7) Nutrition, metabolism, and development symptoms Inpatient Certification: I certify that the inpatient services were ordered in accordance with Medicare regulations governing the order. This includes certification that hospital inpatient services are reasonable and necessary and in the case of services not specified as inpatient-only under 42 CFR 419.22(n), that they are appropriately provided as inpatient services in accordance to with the 2-midnight benchmark under 43 CFR 412.3(e) Estimated Total Length of Stay (Days): 3 Plans for Post Hospital Care: Home Review of Systems other (See review of systems from history done yesterday) PMFSH - History History 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 - Medical History Medical History: Medical History (Last Updated 04/28/18 @ 15:12 by Ronel Burton MD) Abnormal breast biopsy Onset Date: ~04/2010 Breast cancer - Tobacco History Second Hand Smoke Exposure: No Smoking Status: Never smoker - Alcohol History How Often Do You Have a Drink Containing Alcohol: Never - Substance Use History Substance History: No History of Abuse - Travel History Recent Travel in the [place] Within the Last 8 Weeks: No Recent Travel Out of the Country Within the Last 8 Weeks: No - Immunization History Tetanus Immunization: Unsure Hx Influenza Vaccine This Season: No Medications and Allergies Active Medications: Active Medications Acetaminophen (Tylenol) 650 mg PO Q4H PRN PRN Reason: PAIN 1-10 AND/OR FEVER >101F Last Admin: 04/28/18 04:18 Dose: 650 mg Al Hydroxide/Mg Hydroxide (Milk Of Magnlisa Liq) 30 ml PO Q12H PRN PRN Reason: Mild Constipation Bisacodyl (Dulcolax Supp) 10 mg RECTAL DAILY PRN PRN Reason: SEVERE CONSITIPATION Enoxaparin Sodium (Lovenox Inj) 40 mg SQ Q24H [facility] Last Admin: 04/27/18 18:49 Dose: Not Given Sodium Chloride (Ns Inj) 500 mls @ 0 mls/hr IV.SIG BOLUS [facility] Last Infusion: 04/27/18 14:14 Dose: Infused Sodium Chloride (Ns Inj) 500 mls @ 0 mls/hr IV.SIG BOLUS [facility] Last Infusion: 04/27/18 15:46 Dose: Infused Sodium Chloride (Ns Inj) 1,000 mls @ 150 mls/hr IV.CONT .Q6H40M [facility] Last Admin: 04/28/18 06:30 Dose: Not Given Azithromycin 500 mg/ Sodium (Chloride) 250 mls @ 250 mls/hr IV.SIG Q24H [facility] Cefepime HCl 2,000 mg/ Sodium (Chloride) 100 mls @ 200 mls/hr IV.SIG Q8H [facility] Last Admin: 04/28/18 09:44 Dose: 200 mls/hr Ondansetron HCl (Zofran Odt) 4 mg PO Q6H PRN PRN Reason: NAUSEA Senna/Docusate Sodium (So-Colace) 1 tab PO BID [facility] Last Admin: 04/28/18 09:44 Dose: 1 tab Sennosides (Senokot) 17.2 mg PO Q12H PRN PRN Reason: Moderate Constipation Sodium Chloride (Ns Flush) 2 ml IV.FLUSH PRN PRN PRN Reason: FLUSH AFTER USING IV ACCESS Allergies Allergy/AdvReac Type Severity Reaction Status Date / Time diatrizoate meglumine Allergy Severe HIVES Verified 04/27/18 11:53 gadobenic acid Allergy Severe HIVES Verified 04/27/18 11:53 gadodiamide Allergy Severe HIVES Verified 04/27/18 11:53 gadoteridol Allergy Severe HIVES Verified 04/27/18 11:53 iodixanol Allergy Severe HIVES Verified 04/27/18 11:53 iohexol Allergy Severe HIVES Verified 04/27/18 11:53 Home Medications Medication Instructions Recorded Confirmed Type oxycodone [OxyContin] 5 mg PO DAILY PRN 04/27/18 04/27/18 History Exam Vital signs: Vital Signs 04/27/18 11:55 04/27/18 14:58 04/27/18 16:00 Temperature 98.3 F 97.6 F Pulse Rate 116 H 100 H 102 H Respiratory Rate 16 16 19 Blood Pressure 142/60 H 143/60 H 141/61 H Pulse Oximetry 90 L 95 96 04/27/18 20:00 04/27/18 20:15 04/27/18 21:40 Temperature 97.9 F Pulse Rate 103 H 104 H Respiratory Rate 18 22 Blood Pressure 154/65 H Pulse Oximetry 96 97 04/28/18 00:00 04/28/18 03:56 04/28/18 04:00 Temperature 97.6 F Pulse Rate 100 H 105 H 105 H Respiratory Rate 18 24 Blood Pressure 161/72 H Pulse Oximetry 97 04/28/18 04:01 04/28/18 04:02 04/28/18 08:00 Temperature 98.3 F 97.5 F L Pulse Rate 95 H 94 H Respiratory Rate 18 17 Blood Pressure 129/62 125/57 L Pulse Oximetry 94 L 94 L 95 Intake & Output 04/27/18 04/28/18 04/28/18 18:59 06:59 18:59 Intake Total 1780 / 1780 1583 / 1583 Output Total 350 / 350 Balance 1780 / 1780 1233 / 1233 Intake: IV 1300 / 1300 1103 / 1103 NS Inj 1,000 ML @ 150 mls/hr IV 703 / 703 .CONT .Q6H40M [facility] Rx#:[id number] Azithromycin Inj 500 MG In NS 200 / 200 Inj 250 ML @ 250 mls/hr IV.SIG ONCE ONE Rx#:[id number] Maxipime Inj 2,000 MG In NS Inj 100 / 100 200 / 200 100 ML @ 200 mls/hr IV.SIG Q8H [facility] Rx#:[id number] NS Inj 500 ML @ Wide Open IV. 1000 / 1000 SIG BOLUS COOPER Rx#:[id number] Oral 480 / 480 480 / 480 Output: Urine 350 / 350 Other: # Incontinent Voids 1 Date of Last Bowel Movement 04/26/18 04/26/18 # Bowel Movements 0 Narrative: GENERAL: Sweating and appears chronically ill SKIN: Warm and dry. HEAD: Atraumatic. Normocephalic. EYES: Pupils equal and round. No scleral icterus. No injection or drainage. ENT: No nasal bleeding or discharge. Mucous membranes pink and moist. NECK: Trachea midline. No JVD. CARDIOVASCULAR: Regular rate and rhythm. RESPIRATORY: No accessory muscle use. Clear to auscultation. Breath sounds equal bilaterally. GASTROINTESTINAL: Abdomen soft, non-tender, nondistended. Hepatic and splenic margins not palpable. MUSCULOSKELETAL: Extremities without clubbing, cyanosis, or edema. No obvious deformities. NEUROLOGICAL: Awake and alert. No obvious cranial nerve deficits. Motor grossly within normal limits. Five out of 5 muscle strength in the arms and legs. Normal speech. PSYCHIATRIC: Appropriate mood and affect; insight and judgment normal. Results - Labs Result diagrams: 04/28/18 04:47 04/28/18 04:49 Abnormal lab results 04/27/18 04/27/18 04/27/18 Range/Units 12:31 12:31 13:20 WBC 38.1 H (4.0-11.0) th/mm3 RBC (4.00-5.30) mil/mm3 Hgb (11.6-15.3) gm/dL Hct (35.0-46.0) % Plt Count 506 H (150-450) th/mm3 Neut % (Auto) 92.6 H (16.0-70.0) % Lymph % (Auto) 3.0 L (9.0-44.0) % Neut # (Auto) 35.3 H (1.8-7.7) th/mm3 [place] # (Auto) 1.5 H (0.0-0.9) th/mm3 Seg Neuts % (Manual) 90 H (16-70) % Lymphocytes % (Manual) 1 L (9-44) % Abs Neuts (Manual) 35.4 H (1.8-7.7) th/mm3 Toxic Granulation (None) Toxic Vacuolation Present H (None) Platelet Estimate High H (Normal) Sodium 129 L (136-145) meq/L Chloride 90 L (98-107) meq/L Creatinine 1.16 H (0.50-1.00) mg/dL Estimated GFR 45 L (>89) mL/min Random Glucose 238 H (74-106) mg/dL Calcium 12.4 H* (8.5-10.1) mg/dL Total Protein 6.2 L (6.4-8.2) g/dL Albumin 2.2 L (3.4-5.0) g/dL Urine Clarity Cloudy H (Clear) Urine Protein 30 H (Neg-Trace) mg/dL Urine Glucose (UA) 150 H (Negative) mg/dL Urine Urobilinogen 2.0 H (Less than 2) mg/dL Amorphous Sediment Rare H (None) /hpf Urine Bacteria Moderate H (None) /hpf Urine Mucus Few H (Occasional) /lpf 04/28/18 04/28/18 Range/Units 04:47 04:49 WBC 43.7 H (4.0-11.0) th/mm3 RBC 3.99 L (4.00-5.30) mil/mm3 Hgb 11.2 L (11.6-15.3) gm/dL Hct 33.2 L (35.0-46.0) % Plt Count 493 H (150-450) th/mm3 Neut % (Auto) 89.0 H (16.0-70.0) % Lymph % (Auto) 5.8 L (9.0-44.0) % Neut # (Auto) 38.9 H (1.8-7.7) th/mm3 [place] # (Auto) 2.1 H (0.0-0.9) th/mm3 Seg Neuts % (Manual) 85 H (16-70) % Lymphocytes % (Manual) 6 L (9-44) % Abs Neuts (Manual) 39.8 H (1.8-7.7) th/mm3 Toxic Granulation 1+ H (None) Toxic Vacuolation Present H (None) Platelet Estimate High H (Normal) Sodium 131 L (136-145) meq/L Chloride 95 L (98-107) meq/L Creatinine (0.50-1.00) mg/dL Estimated GFR 68 L (>89) mL/min Random Glucose 182 H (74-106) mg/dL Calcium 12.1 H* (8.5-10.1) mg/dL Total Protein 5.7 L (6.4-8.2) g/dL Albumin (3.4-5.0) g/dL Urine Clarity (Clear) Urine Protein (Neg-Trace) mg/dL Urine Glucose (UA) (Negative) mg/dL Urine Urobilinogen (Less than 2) mg/dL Amorphous Sediment (None) /hpf Urine Bacteria (None) /hpf Urine Mucus (Occasional) /lpf Short CBC 04/27/18 04/28/18 Range/Units 12:31 04:47 WBC 38.1 H 43.7 H (4.0-11.0) th/mm3 Hgb 12.1 11.2 L (11.6-15.3) gm/dL Hct 35.6 33.2 L (35.0-46.0) % Plt Count 506 H 493 H (150-450) th/mm3 BMP 04/27/18 04/28/18 12:31 04:49 Sodium 129 L 131 L Potassium 4.2 4.0 Chloride 90 L 95 L Carbon Dioxide 25.4 25.5 BUN 16 14 Creatinine 1.16 H 0.80 Calcium 12.4 H* 12.1 H* Cardiac Enzymes 04/27/18 Range/Units 12:31 Total Creatine Kinase 60 (26-192) U/L Troponin I 0.02 (0.02-0.05) ng/mL Liver Function 04/27/18 Range/Units 12:31 Total Bilirubin 0.5 (0.2-1.0) mg/dL AST 22 (15-37) U/L ALT 21 (10-53) U/L Alkaline Phosphatase 99 (45-117) U/L Albumin 2.2 L (3.4-5.0) g/dL Urine 04/27/18 Range/Units 13:20 Urine Color [place] (Yellw/Straw) Urine Clarity Cloudy H (Clear) Urine pH 5.0 (5.0-8.5) Ur Specific [place] 1.016 (1.002-1.035) Urine Protein 30 H (Neg-Trace) mg/dL Urine Glucose (UA) 150 H (Negative) mg/dL - Imaging Impressions Abdomen X-Ray 04/27/18 12:06 CONCLUSION: 1. No acute abnormalities. 2. Right basilar pleural-parenchymal density. 3. Chest X-Ray 04/27/18 12:06 CONCLUSION: 1. Right basilar pleural-parenchymal density as seen on previous study. 2. Nodule left lower lobe. Caprini VTE Risk Assessment Caprini VTE Risk Assessment: Moderate/High Risk (score >= 2) Caprini Risk Assessment Model: Point Value = 1 Point Value = 2 Point Value = 3 Point Value = 5 Age 41-60 Minor surgery BMI > 25 kg/m2 Swollen legs Varicose veins or History of unexplained or recurrent spontaneous Oral contraceptives or hormone replacement Sepsis (< 1 month) Serious lung disease, including pneumonia (< 1 month) Abnormal pulmonary function Acute myocardial infarction Congestive heart failure (< 1 month) History of inflammatory bowel disease Medical patient at bed rest Age 61-74 Arthroscopic surgery Major open surgery (> 45 min) Laparoscopic surgery (> 45 min) Malignancy Confined to bed (> 72 hours) Immobilizing plaster cast Central venous access Age >= 75 History of VTE Family history of VTE Factor V Leiden Prothrombin [id number] Lupus anticoagulant Anticardiolipin antibodies Elevated serum homocysteine Heparin-induced thrombocytopenia Other congenital or acquired thrombophilia Stroke (< 1 month) Elective arthroplasty Hip, pelvis, or leg fracture Acute spinal cord injury (< 1 month) Prophylaxis Regimen: Total Risk Factor Score Risk Level Prophylaxis Regimen 0-1 Low Early ambulation 2 Moderate Order ONE of the following: *Sequential Compression Device (SCD) *Heparin 5000 units SQ BID 3-4 Higher Order ONE of the following medications: *Heparin 5000 units SQ TID *Enoxaparin/Lovenox 40 mg SQ daily (WT < 150 kg, CrCl > 30 mL/min) *Enoxaparin/Lovenox 30 mg SQ daily (WT < 150 kg, CrCl > 10-29 mL/min) *Enoxaparin/Lovenox 30 mg SQ BID (WT < 150 kg, CrCl > 30 mL/min) AND/OR *Sequential Compression Device (SCD) 5 or more Highest Order ONE of the following medications: *Heparin 5000 units SQ TID (Preferred with Epidurals) *Enoxaparin/Lovenox 40 mg SQ daily (WT < 150 kg, CrCl > 30 mL/min) *Enoxaparin/Lovenox 30 mg SQ daily (WT < 150 kg, CrCl > 10-29 mL/min) *Enoxaparin/Lovenox 30 mg SQ BID (WT < 150 kg, CrCl > 30 mL/min) AND *Sequential Compression Device (SCD) Assessment and Plan - Assessment (1) Sepsis Code(s): A41.9 - Sepsis, unspecified organism Status: Acute Plan: Admission WBC 38.1 and tachycardic. Elevated WBC ddx pneumonia or malignancy -1 L bolus saline -UA negative nitrate leuk esterase few WBC -lactic acid 2.0 -Chest X-ray: Right basilar pleural-parenchymal density as seen on previous study. Nodule left lower lobe. -daily CBC and BMP -Fluids 150 mL/hr -BCX pending (2) Shortness of breath Code(s): R06.02 - Shortness of breath Status: Acute Plan: Continued shortness of breath since discharge earlier this week for a right pleural effusion status post thoracentesis. DDX continued pleural effusion, pneumonia, malignancy. Troponin .02. Chest X-ray: Right basilar pleural- parenchymal density as seen on previous study. Nodule left lower lobe. -O2 as needed -IV antibiotics cefepime 2 g q 8hrs for 7 days and azithromycin 500 mg for at least 3 days (started 04/27) Will follow up with pathology to determine what is the etiology of the pleural effusion (3) Hypercalcemia Code(s): E83.52 - Hypercalcemia Status: Acute Plan: Calcium at admission 12.4. DDX malignancy, dehydration. Received 1 L bolus -NS 150 mL/hr She will probably need some sort of Prolia or other medication to decrease her calcium long-term it is uncertain at this point based on having no records and the patient not being a great historian whether she has metastatic breast cancer versus some other newer malignancy. (4) Weakness Code(s): R53.1 - Weakness Status: Acute Plan: Most likely due to hypercalcemia, dehydration, and malignancy. -See workup for hypercalcemia -PT OT consult (5) Constipation Code(s): K59.00 - Constipation, unspecified Status: Acute Plan: No bowel movement for 5-6 days usually goes every other day. DDx hypercalcemia, medication effect of oxycodone, malignancy, ileus -Abdominal x-ray: No evidence of free intraperitoneal gas.The visualized bowel loops are unremarkable. -PRN milk of mag; so-colace, ducolax, (6) Bilateral breast cancer Code(s): C50.911 - Malignant neoplasm of unspecified site of right female breast ; C50.912 - Malignant neoplasm of unspecified site of left female breast Status: Acute Plan: Not actively being treated. Followed by Dr. Sharma -Oncology consult (7) Nutrition, metabolism, and development symptoms Code(s): R63.8 - Other symptoms and signs concerning food and fluid intake Status: Acute Plan: Diet: Regular Prophylaxis: Lovenox Electrolytes: Replete as needed - Assessment and Plan 82 year old female PMH bilateral breast cancer presented with continued weakness and shortness of breath. Earlier this week discharged after a right thoracentesis for R pleural effusion. Was given oxycodone on discharged. Constipation for 5-6 days. On admission septic with WBC 38.1 and tachycardia. Hypercalcemic 12.4. Was given 1 L NS bolus and started on cefepime and azithromycin for possible pneumonia. Put on 2 L NC. Abdominal x-ray: No evidence of free intraperitoneal gas.The visualized bowel loops are unremarkable. Chest X-ray: Right basilar pleural-parenchymal density as seen on previous study. Nodule left lower lobe. UA negative nitrates, leuk esterase, and few WBC. Blood cultures drawn. Oncology consulted. Disposition: unknown Discharge: unknown Discussed with Dr. Burton H&P: Quality - VTE Deep Vein Thrombosis/Pulmonary Embolism Present on Admission: No (1) Sepsis Qualifiers: Sepsis type: sepsis due to unspecified organism Qualified Code(s): A41.9 - Sepsis, unspecified organism
--- NOTE | 2018-04-28 11:59 | MB ---
cc: Leonardo Pete MD DATE: 04/28/2018 ATTENDING PHYSICIAN: Dr. Burton. REASON FOR CONSULTATION: Oncology consult rendered regarding patient with metastatic breast cancer, presented with sepsis and hypercalcemia. HISTORY OF PRESENT ILLNESS: The patient is an 82-year-old female who presented to the hospital with complaint of increased weakness and shortness of breath. She is a rather poor historian. Apparently, she has been seeing Dr. Sharma for treatment of metastatic breast cancer. Reportedly, she was first diagnosed in 2009 with cancer in the right breast. She did not have any surgery and I am presuming that she had metastatic breast cancer at that time. She was treated with some sort of a pill, which sounded like letrozole. She stated recently she was found to have cancer in the right lung. She was given another new pill. She, however, took it for about 24 days and she became very ill with nausea, vomiting, and fatigue. She has stopped taking the pill. She was sent to radiology for right thoracentesis on 04/25/2018. Clear yellow fluid, 1300 mL, was removed. I could not find the cytology. After thoracentesis, she did not feel any better. She has increased weakness and decreased oral intake. She had nausea. She went to the bathroom and became so weak that she had to crawl out of the bathroom. She denies any fall or trauma to the head. She was brought into the hospital. She denies any fever or chills, but she has been having increased sweats. She has lost some weight. She has had anterior chest pain that is chronic. She also has increased dyspnea on exertion. She denies significant cough. Denies any headache. Denies any nausea, vomiting, abdominal pain. She has constipation. She denies any melena or hematochezia. PAST MEDICAL HISTORY: Metastatic breast cancer. Denies any hypertension, coronary artery disease, or diabetes. PAST SURGICAL HISTORY: Biopsy of the breast. FAMILY HISTORY: Mother of some sort of cancer. One sister of lung cancer. She has 5 sons and 1 daughter, and 1 son and 1 daughter are , but no cancer. SOCIAL HISTORY: Denies tobacco or alcohol use. She lives alone. 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 ALLERGIES: MULTIPLE DRUG ALLERGIES DOCUMENTED IN THE CHART, WERE REVIEWED. MEDICATIONS: 1. Azithromycin. 2. Cefepime. 3. Lovenox. 4. So-Colace. REVIEW OF SYSTEMS: CONSTITUTIONAL: As above. EYES: Negative. ENT: Negative. CARDIOVASCULAR: As above. RESPIRATORY: As above. GASTROINTESTINAL: Denies any nausea or vomiting. Has constipation. Has abdominal pain. GENITOURINARY: No dysuria or hematuria. MUSCULOSKELETAL: As above. HEMATOLOGIC: Negative. ENDOCRINE: Negative. DERMATOLOGY: Negative. PSYCHIATRIC: Negative. NEUROLOGIC: Generalized weakness. PHYSICAL EXAMINATION: VITAL SIGNS: Temperature 97.5, blood pressure 125/57, O2 saturation 95% on 2 liters nasal cannula. GENERAL: She is alert and oriented x3. She looks weak. HEENT: Atraumatic, normocephalic. Pupils are equal, round, reactive to light. Extraocular muscles are intact. No scleral icterus. Oropharynx dry mucosa. No lesion, no thrush or mucositis. NECK: No thyromegaly. No palpable mass. LYMPHATIC: No palpable cervical, clavicular, axillary, or inguinal lymph nodes. HEART: Regular S1, S2. No murmur. LUNGS: Decreased breath sounds right lung base. No wheezing or rhonchi. ABDOMEN: Soft, nontender, no palpable liver or spleen. EXTREMITIES: No cyanosis, clubbing, or edema. No calf tenderness. SKIN: No rash or petechiae. NEUROLOGIC: Nonfocal. LABORATORY DATA: WBC 43.7, hemoglobin 11.2, platelet count 493,000. Creatinine 0.8, calcium 12.1. ASSESSMENT AND PLAN: 1. Metastatic breast cancer. At this point, we do not have her records. She has been seeing Dr. Sharma. Reportedly she was diagnosed with right breast cancer around 2009. She did not have any surgery and I presume that she already was found to have metastatic breast cancer at that time. She was treated with a pill that sounded like letrozole for a while. She recently was found to have metastatic disease of the lung and was switched to another pill. She took the pill for about 24 days and became very ill. She has stopped taking the medication. CT scan done as outpatient on 04/23/2018 showed multiple lung nodules, largest measured 1.3 cm. There was also moderate right pleural effusion with small pericardial effusion. CT of the abdomen and pelvis did not show any clear evidence of metastatic disease. She had a right thoracentesis on 04/22/2018 with removal of 1300 mL of clear yellow fluid. However, I could not find the cytology. The patient now presented with hypercalcemia. I think all this is due to metastatic breast cancer. We will try to get records from Dr. Sharma's office. We will check a tumor marker also. 2. Hypercalcemia. She presented with a calcium of 12.4. It trended down to 12.1 this morning with hydration. This could be due to metastatic disease in the bone or paraneoplastic syndrome. We will get a bone scan for further evaluation. Continue hydration for now and could give her pamidronate after some hydration. 3. Sepsis syndrome. She presented with white blood cell count of 38,000 and went up to 43,000 this morning. There were bandemia and toxic granulation noted. She has increased sweat, but no fever. A urinalysis showed bacteria. She has possible urosepsis. She is currently on cefepime and azithromycin. She remains afebrile. 4. Mild anemia due to chronic disease. 5. Dehydration. Her creatinine was elevated, but has improved with hydration. RECOMMENDATIONS: 1. Arrange a bone scan. 2. Check tumor marker. 3. Get records from Dr. Sharma's office. 4. Check PTH. 5. Consider giving her bisphosphonate therapy if she has persistent hypercalcemia. Continue hydration for now. 6. Continue antibiotic per primary team. Thank you, Dr. Burton, for asking me to see this patient. MD MARGRET Boateng/ryley , 10:19 AM , 10:38 AM [facility]
--- NOTE | 2018-04-28 13:21 | ECG ---
Date Performed: 04/27/2018 Time Performed: 13:09:51 PTAGE: 82 years EKG: SINUS TACHYCARDIA MARKED LEFT AXIS DEVIATION NONSPECIFIC T-WAVE ABNORMALITY ABNORMAL ECG PREVIOUS TRACING : 05/13/2012 21.17 Compared to previous tracing, sinusrate is faster DOCTOR: Hema Fitzgerald Interpretating Date/Time 04/28/2018 13:20:31
[2018-04-28] MEDS: Azithromycin Inj 500 MG in Sodium Chlor 0.9% Inj 250 ML IV.SIG SCH (16:37)
[2018-04-28] MEDS: Enoxaparin Inj 40 MG/0.4 ML Syringe SQ SCH (18:08)
[2018-04-28] MEDS ORDERED: Benzonatate 100 MG Capsule PO PRN (21:02)
[2018-04-29] MEDS: Sod Chloride 0.9% Inj 1,000 ML IV.CONT SCH ×3 (03:22→16:25)
[2018-04-29] MEDS: Acetaminophen 325 MG Tablet PO PRN ×3 (05:21→22:10)
[2018-04-29 07:50] LABS: Hematocrit 34.9 % (35.0-46.0); Hemoglobin 11.5 gm/dL (11.6-15.3); Mean Corpuscular HGB Conc 33.1 % (32.0-36.0); Mean Corpuscular Hemoglobin 27.9 pg (27.0-34.0); Mean Corpuscular Volume 84.2 fL (80.0-100.0); Mean Platelet Volume 7.2 fL (7.0-11.0); Platelet Count 497 th/mm3 (150-450); Red Blood Count 4.14 mil/mm3 (4.00-5.30); Red Cell Distribution Width 13.2 % (11.6-17.2); White Blood Count 49.5 th/mm3 (4.0-11.0)
[2018-04-29 07:54] LABS: Carbon Dioxide 24.3 meq/L (21.0-32.0); Potassium 3.8 meq/L (3.5-5.1)
[2018-04-29 08:11] LABS: Total Protein 5.9 g/dL (6.4-8.2)
[2018-04-29 08:20] LABS: Calcium 13.3 mg/dL (8.5-10.1)
[2018-04-29 08:25] LABS: Lymphocytes 1 % (9-44); Monocytes 4 % (0-8)
[2018-04-29 08:26] LABS: Acanthocytes Occ; Burr Cells 1+; Ovalocytes 1+; Platelet Morphology Normal (Normal)
[2018-04-29] MEDS: Senna/Docusate Sodium 8.6/50 MG Tablet PO SCH ×2 (09:10→22:11)
--- NOTE | 2018-04-29 09:26 | P.PNFP ---
Subjective Interval history: No acute events overnight. Patient had a DuoNeb breathing treatment overnight with no significant change. Vital signs remained stable. Patient continues to feel tired/weak. She denies any chest pain, nausea or vomiting, diarrhea. <Fransisco Jones B - 04/29/18 15:01> Results - Labs Result diagrams: 05/01/18 04:51 05/01/18 04:51 <Ronel Burton - 05/01/18 16:53> Abnormal lab results 04/30/18 04/30/18 Range/Units 04:38 04:38 WBC 62.9 H (4.0-11.0) th/mm3 Plt Count 601 H (150-450) th/mm3 Neut % (Auto) 92.4 H (16.0-70.0) % Lymph % (Auto) 3.2 L (9.0-44.0) % Neut # (Auto) 58.1 H (1.8-7.7) th/mm3 Sibley # (Auto) 2.6 H (0.0-0.9) th/mm3 Seg Neuts % (Manual) 90 H (16-70) % Lymphocytes % (Manual) 2 L (9-44) % Promyelocytes % (Man) 1 H (0-0) % Abs Neuts (Manual) 59.8 H (1.8-7.7) th/mm3 Toxic Vacuolation Present H (None) Platelet Estimate High H (Normal) Platelet Morphology Clumped H (Normal) Ovalocytes 1+ H (None) Ch[place]ell Cells 1+ H (None) Sodium 133 L (136-145) meq/L Chloride 93 L (98-107) meq/L Creatinine 1.03 H (0.50-1.00) mg/dL Estimated GFR 51 L (>89) mL/min Random Glucose 166 H (74-106) mg/dL Calcium 14.9 H* D (8.5-10.1) mg/dL Short CBC 04/30/18 Range/Units 04:38 WBC 62.9 H (4.0-11.0) th/mm3 Hgb 12.5 (11.6-15.3) gm/dL Hct 38.3 (35.0-46.0) % Plt Count 601 H (150-450) th/mm3 BMP 04/30/18 04:38 Sodium 133 L Potassium 3.8 Chloride 93 L Carbon Dioxide 26.8 BUN 13 Creatinine 1.03 H Calcium 14.9 H* D <Ronel Burton Geni - 05/01/18 16:53> Abnormal lab results 04/28/18 04/29/18 04/29/18 Range/Units 20:18 07:06 07:06 WBC 49.5 H (4.0-11.0) th/mm3 Hgb 11.5 L (11.6-15.3) gm/dL Hct 34.9 L (35.0-46.0) % Plt Count 497 H (150-450) th/mm3 Seg Neuts % (Manual) 93 H (16-70) % Lymphocytes % (Manual) 1 L (9-44) % Abs Neuts (Manual) 47.0 H (1.8-7.7) th/mm3 Platelet Estimate High H (Normal) Ovalocytes 1+ H (None) [place] Cells 1+ H (None) Acanthocytes (Spur) Occ H (None) Sodium 134 L (136-145) meq/L Estimated GFR 70 L (>89) mL/min Random Glucose 189 H (74-106) mg/dL Calcium 13.3 H* D (8.5-10.1) mg/dL Total Protein 5.9 L (6.4-8.2) g/dL PTH Intact 12.3 L (12.4-76.8) pg/mL Short CBC 04/29/18 Range/Units 07:06 WBC 49.5 H (4.0-11.0) th/mm3 Hgb 11.5 L (11.6-15.3) gm/dL Hct 34.9 L (35.0-46.0) % Plt Count 497 H (150-450) th/mm3 BMP 04/29/18 07:06 Sodium 134 L Potassium 3.8 Chloride 98 Carbon Dioxide 24.3 BUN 13 Creatinine 0.78 Calcium 13.3 H* D <Fransisco Jones - 04/29/18 09:26> - Imaging Impressions Bone Scan Nuclear Medicine 04/29/18 00:00 CONCLUSION: 1. Minimal asymmetrical uptake in the right talus when compared to the left. 2. Unusual location metastatic disease. Correlation with plain films is suggested. Head CT 04/30/18 00:00 CONCLUSION: 1. No acute findings. . <Ronel Burton - 04/30/18 13:27> Physical Exam Vital signs: Vital Signs 04/29/18 16:00 04/29/18 20:00 04/29/18 20:36 Temperature 97.3 F L 97.2 F L Pulse Rate 110 H 100 H 70 Respiratory Rate 23 18 22 Blood Pressure 171/80 H 140/75 Pulse Oximetry 93 L 99 94 L 04/30/18 00:00 04/30/18 08:00 04/30/18 11:08 Temperature 97.3 F L 95.1 F L Pulse Rate 104 H 118 H Respiratory Rate 18 17 Blood Pressure 135/72 143/71 H Pulse Oximetry 93 L 94 L 92 L 04/30/18 12:00 Temperature 96.7 F L Pulse Rate 111 H Respiratory Rate 19 Blood Pressure 164/78 H Pulse Oximetry 94 L Intake & Output 04/29/18 04/30/18 04/30/18 18:59 06:59 18:59 Intake Total 1974 400 / 400 100 / 100 Balance 1974 400 / 400 100 / 100 Weight 38.1 kg Intake: IV 1605 / 1605 100 / 100 100 / 100 NS Inj 1,000 ML @ 150 mls/hr IV 1000 / 1000 .CONT .Q6H40M [facility] Rx#:[id number] Azithromycin Inj 500 MG In NS 250 / 250 Inj 250 ML @ 250 mls/hr IV.SIG Q24H [facility] Rx#:[id number] Maxipime Inj 2,000 MG In NS Inj 200 / 200 100 / 100 100 / 100 100 ML @ 200 mls/hr IV.SIG Q8H [facility] Rx#:[id number] Zometa Inj 4 MG In NS Inj 150 155 / 155 ML @ 155 mls/hr IV.SIG ONCE ONE Rx#:[id number] Oral 370 / 370 300 / 300 Other: # Voids 4 Date of Last Bowel Movement 04/29/18 # Bowel Movements 1 <Ronel Burton - 05/01/18 16:53> Vital Signs 04/28/18 12:00 04/28/18 16:00 04/28/18 20:00 Temperature 98.4 F 98.4 F Pulse Rate 100 H 102 H Respiratory Rate 18 17 19 Blood Pressure 162/71 H 163/67 H Pulse Oximetry 94 L 95 08/26/18 20:06 04/28/18 20:37 04/28/18 21:28 Temperature 97.2 F L Pulse Rate 106 H 106 H Respiratory Rate 18 Blood Pressure 165/74 H Pulse Oximetry 96 95 04/28/18 23:58 04/29/18 00:00 04/29/18 04:00 Temperature 98.2 F 98.3 F Pulse Rate 99 H 92 H 95 H Respiratory Rate 19 19 Blood Pressure 159/74 H 164/72 H Pulse Oximetry 97 100 04/29/18 04:09 04/29/18 05:19 04/29/18 06:11 Temperature Pulse Rate 106 H 103 H Respiratory Rate 19 18 Blood Pressure Pulse Oximetry 04/29/18 07:52 04/29/18 08:00 Temperature 97.9 F Pulse Rate 100 H Respiratory Rate 19 Blood Pressure 154/66 H Pulse Oximetry 97 94 L Intake & Output 04/28/18 04/29/18 04/29/18 18:59 06:59 18:59 Intake Total 1450 / 1450 1100 / 1100 Balance 1450 / 1450 1100 / 1100 Intake: IV 450 / 450 1100 / 1100 NS Inj 1,000 ML @ 150 mls/hr IV 1000 / 1000 .CONT .Q6H40M [facility] Rx#:[id number] Azithromycin Inj 500 MG In NS 250 / 250 Inj 250 ML @ 250 mls/hr IV.SIG Q24H [facility] Rx#:[id number] Maxipime Inj 2,000 MG In NS Inj 200 / 200 100 / 100 100 ML @ 200 mls/hr IV.SIG Q8H [facility] Rx#:[id number] Oral 1000 / 1000 0 / 0 Other: # Voids 5 # Incontinent Voids 5 Date of Last Bowel Movement 04/26/18 # Bowel Movements 0 <Fransisco Jones - 04/29/18 09:26> Narrative: GENERAL: Sweating and appears chronically ill. Nasal cannula in place SKIN: Warm and dry. HEAD: Atraumatic. Normocephalic. EYES: Pupils equal and round. No scleral icterus. No injection or drainage. ENT: No nasal bleeding or discharge. Mucous membranes pink and moist. NECK: Trachea midline. No JVD. CARDIOVASCULAR: Regular rate and rhythm. RESPIRATORY: No accessory muscle use. Diminished breath sounds in the right lung velazquez, dullness to percussion over the right lung field. GASTROINTESTINAL: Abdomen soft, non-tender, nondistended. Hepatic and splenic margins not palpable. MUSCULOSKELETAL: Extremities without clubbing, cyanosis, or edema. No obvious deformities. NEUROLOGICAL: Awake and alert. No obvious cranial nerve deficits. Motor grossly within normal limits. Five out of 5 muscle strength in the arms and legs. Normal speech. PSYCHIATRIC: Appropriate mood and affect; insight and judgment normal. <Fransisco Jones - 04/29/18 15:01> Assessment and Plan - Assessment (1) Sepsis Code(s): A41.9 - Sepsis, unspecified organism Status: Acute (2) Shortness of breath Code(s): R06.02 - Shortness of breath Status: Acute (3) Hypercalcemia Code(s): E83.52 - Hypercalcemia Status: Acute (4) Weakness Code(s): R53.1 - Weakness Status: Acute (5) Constipation Code(s): K59.00 - Constipation, unspecified Status: Acute (6) Bilateral breast cancer Code(s): C50.911 - Malignant neoplasm of unspecified site of right female breast ; C50.912 - Malignant neoplasm of unspecified site of left female breast Status: Acute (7) Nutrition, metabolism, and development symptoms Code(s): R63.8 - Other symptoms and signs concerning food and fluid intake Status: Acute <Ronel Burton - 05/01/18 16:53> (1) Sepsis Code(s): A41.9 - Sepsis, unspecified organism Status: Acute Plan: Admission WBC 38.1 and tachycardic. Elevated WBC at continues to rise. ddx pneumonia or malignancy -1 L bolus saline -UA negative nitrate leuk esterase few WBC -lactic acid 2.0 -Chest X-ray: Right basilar pleural-parenchymal density as seen on previous study. Nodule left lower lobe. -daily CBC and BMP -Fluids 150 mL/hr -BCX with no growth to date (2) Shortness of breath Code(s): R06.02 - Shortness of breath Status: Acute Plan: Continued shortness of breath since discharge earlier this week for a right pleural effusion status post thoracentesis. DDX continued pleural effusion, pneumonia, malignancy. Troponin .02. Chest X-ray: Right basilar pleural- parenchymal density as seen on previous study. Nodule left lower lobe. -O2 as needed -IV antibiotics cefepime 2 g q 8hrs for 7 days and azithromycin 500 mg for at least 3 days (started 04/27) Will follow up with pathology to determine what is the etiology of the pleural effusion (3) Hypercalcemia Code(s): E83.52 - Hypercalcemia Status: Acute Plan: Calcium at admission 12.4, 13.3 on 04/29. DDX malignancy, dehydration. Received 1 L bolus -NS 150 mL/hr -Will give one-time dose of zoledronic acid IV -Bone scan ordered by oncology -PTH pending (4) Weakness Code(s): R53.1 - Weakness Status: Acute Plan: Most likely due to hypercalcemia, dehydration, and malignancy. -See workup for hypercalcemia -PT OT consult (5) Constipation Code(s): K59.00 - Constipation, unspecified Status: Acute Plan: No bowel movement for 5-6 days usually goes every other day. DDx hypercalcemia, medication effect of oxycodone, malignancy, ileus -Abdominal x-ray: No evidence of free intraperitoneal gas.The visualized bowel loops are unremarkable. -PRN milk of mag; salbador-colace, ducolax, (6) Bilateral breast cancer Code(s): C50.911 - Malignant neoplasm of unspecified site of right female breast ; C50.912 - Malignant neoplasm of unspecified site of left female breast Status: Acute Plan: Not actively being treated. Followed by Dr. Sharma -Oncology consulted, appreciate recommendations -Palliative care consulted (7) Nutrition, metabolism, and development symptoms Code(s): R63.8 - Other symptoms and signs concerning food and fluid intake Status: Acute Plan: Diet: Regular Prophylaxis: Lovenox Electrolytes: Replete as needed <Frnasisco Jones - 04/29/18 14:52> - Assessment and Plan 82 year old female PMH bilateral breast cancer presented with continued weakness and shortness of breath. Earlier this week discharged after a right thoracentesis for R pleural effusion. Was given oxycodone on discharged. Constipation for 5-6 days. On admission septic with WBC 38.1 and tachycardia. Hypercalcemic 12.4. Was given 1 L NS bolus and started on cefepime and azithromycin for possible pneumonia. Put on 2 L NC. Abdominal x-ray: No evidence of free intraperitoneal gas.The visualized bowel loops are unremarkable. Chest X-ray: Right basilar pleural-parenchymal density as seen on previous study. Nodule left lower lobe. UA negative nitrates, leuk esterase, and few WBC. Blood cultures with no growth to date. Oncology, palliative care consulted. Calcium justice to 13.3 on 04/29. Give one-time dose of zoledronic acid IV. Disposition: unknown Discharge: Will likely need inpatient rehab Discussed with Dr. Burton <Fransisco Jones - 04/29/18 15:01> - Attending Attestation The exam, history, and the medical decision-making described in the above note were completed with the assistance of the resident physician. I reviewed and agree with the findings presented. I attest that I had a [id number] encounter with the patient on the same day, and personally performed and documented my assessment and findings in the medical record. Unfortunately she looks like she is worsening daily. She has a 10 year history of breast cancer had that pleural effusion and is moving to an end-stage cancer. I am also very concerned that she may have a new cancer like a leukemia or some sort of blast phase as her white count is extremely high which would not be fitting with a diagnosis of sepsis to be up having a white count in the 60s range. She is not that sick as far as she never required pressors or a lot of fluid. She was never super hypotensive she did not have full sepsis criteria or severe sepsis at any point. <Ronel Burton - 04/30/18 13:27> <Fransisco Jones - Last Filed: 04/29/18 14:52> (1) Sepsis Qualifiers: Sepsis type: sepsis due to unspecified organism Qualified Code(s): A41.9 - Sepsis, unspecified organism <Ronel Burton - Last Filed: 05/01/18 16:53> (1) Sepsis Qualifiers: Sepsis type: sepsis due to unspecified organism Qualified Code(s): A41.9 - Sepsis, unspecified organism <Fransisco Jones B - Last Filed: 04/29/18 14:52> (1) Sepsis Qualifiers: Sepsis type: sepsis due to unspecified organism Qualified Code(s): A41.9 - Sepsis, unspecified organism <Ronel Burton M - Last Filed: 05/01/18 16:53> (1) Sepsis Qualifiers: Sepsis type: sepsis due to unspecified organism Qualified Code(s): A41.9 - Sepsis, unspecified organism
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
--- NOTE | 2018-04-29 14:04 | NM ---
INDICATIONS: Breast cancer. CLINICAL DATA: This is the patient's initial encounter. Patient reports that signs and symptoms have been present for > 1 year and indicates a pain score of 4/10. MEDICAL/SURGICAL HISTORY: Carcinoma, breast. None. COMPARISON: No prior exams available for comparison. TECHNIQUE: . . Whole body bone scan was performed at 2-3 hours. No correlative bone scan available for comparison. DOSE: 30.1 mCi Tc99m MDP IV FINDINGS: Whole body bone scan demonstrates no suspicious uptake in the axial or appendicular skeleton. Mild a symmetry in renal uptake. Focal uptake in the talus on the right, and unusual location for metastatic disease. Correlation with plain films is suggested. No other focal areas of increased or decreased radiotracer activity are id entified. CONCLUSION: 1. Minimal asymmetrical uptake in the right talus when compared to the left. 2. Unusual location metastatic disease. Correlation with plain films is suggested. Electronically signed by: Ward Pelaez MD 04/29/2018 2:03 PM EDT
[2018-04-29] MEDS: Azithromycin Inj 500 MG in Sodium Chlor 0.9% Inj 250 ML IV.SIG SCH (15:45)
[2018-04-29] MEDS ORDERED: Zoledronic Acid Inj 4 MG in Sodium Chlor 0.9% Inj 150 ML IV.SIG ONE (16:00)
[2018-04-29] MEDS: Enoxaparin Inj 40 MG/0.4 ML Syringe SQ SCH (16:20)
--- NOTE | 2018-04-29 16:36 | P.PNONC ---
Subjective Interval history: Afebrile. Patient states she keeps sweating. Patient states "I feel lousy" Her son and daughter at the bedside. Records have been received and are on her chart, from her primary oncologist Dr. Sharma. Objective Vital Signs/Intake & Output: Vital Signs 04/28/18 16:00 04/28/18 20:00 04/28/18 20:06 Temperature 98.4 F Pulse Rate 102 H 106 H Respiratory Rate 17 19 Blood Pressure 163/67 H Pulse Oximetry 95 04/28/18 20:37 04/28/18 21:28 04/28/18 23:58 Temperature 97.2 F L Pulse Rate 106 H 99 H Respiratory Rate 18 Blood Pressure 165/74 H Pulse Oximetry 96 95 04/29/18 00:00 04/29/18 04:00 04/29/18 04:09 Temperature 98.2 F 98.3 F Pulse Rate 92 H 95 H 106 H Respiratory Rate 19 19 Blood Pressure 159/74 H 164/72 H Pulse Oximetry 97 100 04/29/18 05:19 04/29/18 06:11 04/29/18 07:52 Temperature Pulse Rate 103 H Respiratory Rate 19 18 Blood Pressure Pulse Oximetry 97 04/29/18 08:00 04/29/18 12:00 Temperature 97.9 F 97.9 F Pulse Rate 100 H 100 H Respiratory Rate 19 23 Blood Pressure 154/66 H 150/65 H Pulse Oximetry 97 95 Intake & Output 04/28/18 04/29/18 04/29/18 18:59 06:59 18:59 Intake Total 1450 / 1450 1100 / 1100 Balance 1450 / 1450 1100 / 1100 Intake: IV 450 / 450 1100 / 1100 NS Inj 1,000 ML @ 150 mls/hr IV 1000 / 1000 .CONT .Q6H40M [facility] Rx#:[id number] Azithromycin Inj 500 MG In NS 250 / 250 Inj 250 ML @ 250 mls/hr IV.SIG Q24H [facility] Rx#:[id number] Maxipime Inj 2,000 MG In NS Inj 200 / 200 100 / 100 100 ML @ 200 mls/hr IV.SIG Q8H [facility] Rx#:[id number] Oral 1000 / 1000 0 / 0 Other: # Voids 5 # Incontinent Voids 5 Date of Last Bowel Movement 04/26/18 # Bowel Movements 0 Result Diagrams: 04/29/18 07:06 04/29/18 07:06 Laboratory Results: Laboratory Results - last 24 hr 04/28/18 04/29/18 04/29/18 20:18 07:06 07:06 WBC 49.5 H RBC 4.14 Hgb 11.5 L Hct 34.9 L MCV 84.2 MCH 27.9 MCHC 33.1 RDW 13.2 Plt Count 497 H MPV 7.2 Prelim Diff (Auto) Manual diff required WBC Differential Manual diff final Seg Neuts % (Manual) 93 H Band Neuts % (Manual) 2 Lymphocytes % (Manual) 1 L Monocytes % (Manual) 4 Abs Neuts (Manual) 47.0 H Differential Comment . Platelet Estimate High H Platelet Morphology Normal Ovalocytes 1+ H [place] Cells 1+ H Acanthocytes (Spur) Occ H Sodium 134 L Potassium 3.8 Chloride 98 Carbon Dioxide 24.3 Anion Gap 12 BUN 13 Creatinine 0.78 Estimated GFR 70 L Random Glucose 189 H Calcium 13.3 H* D Prot Corrected Calcium Total Protein 5.9 L CA 15-3 Antigen 16.0 PTH Intact 12.3 L Culture Results: Microbiology 04/27/18 13:20 Aerobic Blood Culture - Preliminary Blood - Peripheral No growth in 2 days Anaerobic Blood Culture - Preliminary No growth in 2 days 04/27/18 13:10 Aerobic Blood Culture - Preliminary Blood - Peripheral No growth in 2 days Anaerobic Blood Culture - Preliminary No growth in 2 days 04/27/18 13:20 Urine Culture - Final Catheterized Urine No growth in 48 hours Imaging Studies: Impressions Bone Scan Nuclear Medicine 04/29/18 00:00 CONCLUSION: 1. Minimal asymmetrical uptake in the right talus when compared to the left. 2. Unusual location metastatic disease. Correlation with plain films is suggested. Medications: Active Medications Generic Name Dose Route Start Last Admin Trade Name Freq PRN Reason Stop Dose Admin Acetaminophen 650 mg 04/27/18 16:19 04/29/18 05:21 Tylenol PO 650 mg Q4H PRN Administration PAIN 1-10 AND/OR FEVER >101F Albuterol 1 ampul 04/28/18 20:54 04/29/18 05:17 Duoneb Neb (Prn) NEB 1 ampul Q6HR NEB PRN Administration SHORTNESS OF BREATH Benzonatate 100 mg 04/28/18 21:02 04/29/18 05:21 Tessalon Perles PO 100 mg Q8H PRN Administration COUGH Enoxaparin Sodium 40 mg 04/27/18 16:00 04/28/18 18:08 Lovenox Inj SQ 40 mg Q24H [facility] Administration Sodium Chloride 500 mls @ 0 mls/hr 04/27/18 13:00 04/27/18 14:14 Ns Inj IV.SIG Infused BOLUS [facility] Infusion Wide Open Sodium Chloride 500 mls @ 0 mls/hr 04/27/18 14:00 04/27/18 15:46 Ns Inj IV.SIG Infused BOLUS [facility] Infusion Wide Open Sodium Chloride 1,000 mls @ 150 mls/hr 04/27/18 15:30 04/29/18 03:22 Ns Inj IV.CONT 100 mls/hr .Q6H40M [facility] Administration Azithromycin 500 mg/ Sodium 250 mls @ 250 mls/hr 04/28/18 15:00 04/28/18 18: 06 Chloride IV.SIG Infused Q24H [facility] Infusion Cefepime HCl 2,000 mg/ Sodium 100 mls @ 200 mls/hr 04/27/18 17:00 04/29/18 01 :45 Chloride IV.SIG Infused Q8H [facility] In[facility] Senna/Docusate Sodium 1 tab 04/27/18 21:00 04/28/18 20:56 So-Colace PO 1 tab BID [facility] Administration Objective Remarks: GENERAL: Ill-appearing female patient, lying in bed, in no acute distress. SKIN: Warm and dry. HEAD: Normocephalic. EYES: No scleral icterus. No injection or drainage. NECK: Supple, trachea midline. CARDIOVASCULAR: Regular rate and rhythm without murmurs. RESPIRATORY: Breath sounds equal bilaterally. Non-labored. GASTROINTESTINAL: Abdomen soft, non-tender, nondistended. EXTREMITIES: No cyanosis, or edema. MUSCULOSKELETAL: Adequate muscle tone. NEUROLOGICAL: No obvious focal deficit. Awake, alert, and oriented x3. PSYCHIATRIC: Appropriate mood and affect; insight and judgment normal. Assessment/Plan - Plan Ms. Alegre is an 82-year-old female who originally presented to the hospital with complaints of generalized weakness and increasing shortness of breath. She has been diagnosed with sepsis, hypercalcemia, mild anemia and dehydration. She has a history of breast cancer and is under the care of Dr. Sharma. After reviewing Dr. Sharma's records, it appears the patient has a known history of bilateral ER positive breast cancer, originally diagnosed in 2009 she has refused surgical intervention and it has appears to have been non- compliant with many of the oral medication regimens. The most recent medication was tormifene (rx'd early February, pt began mid-March) she stopped on 04/17/18 due to side effects. Plan: 1. Sepsis, WBC increasing, 49.5 today. Currently on azithromycin and cefepime. Urine culture negative and blood cultures negative 2 days. 2. Breast CA, Dr. Lopez, records on chart. Bone scan revealed no suspicious uptake in the axial or appendicular skeleton, minimal asymmetrical uptake in the right talus when compared to the left. This was noted to be an unusual location of metastatic disease and they recommended correlation with plain films. CA 153 was 16.0. 3. Hypercalcemia, calcium 13.3 today. PTHrp pending. Patient received zoledronic acid 4 mg today. 4. Continue supportive care. - Attending Statement The exam, history, and the medical decision-making described in the above note were completed with the assistance of the mid-level provider. I reviewed and agree with the findings presented. I attest that I had a [id number] encounter with the patient on the same day, and personally performed and documented my assessment and findings in the medical record.Still feeling weak. WBC trended higher likely due to infectious process. Continue abx per primary team. Bone scan no obvious bone mets. Hypercalcemia may be paraneoplastic. She received zometa x1. Continue supportive care.
[2018-04-30 06:20] LABS: Baso # (Auto) 0.1 th/mm3 (0.0-0.2); Baso % (Auto) 0.2 % (0.0-2.0); Hematocrit 38.3 % (35.0-46.0); Hemoglobin 12.5 gm/dL (11.6-15.3); Lymph % (Auto) 3.2 % (9.0-44.0); Mean Corpuscular HGB Conc 32.5 % (32.0-36.0); Mean Corpuscular Hemoglobin 27.5 pg (27.0-34.0); Mean Corpuscular Volume 84.5 fL (80.0-100.0); Mean Platelet Volume 7.1 fL (7.0-11.0); Mono # (Auto) 2.6 th/mm3 (0.0-0.9); Mono % (Auto) 4.2 % (0.0-8.0); Neut # (Auto) 58.1 th/mm3 (1.8-7.7); Neut % (Auto) 92.4 % (16.0-70.0); Platelet Count 601 th/mm3 (150-450); Red Blood Count 4.54 mil/mm3 (4.00-5.30); Red Cell Distribution Width 13.4 % (11.6-17.2); White Blood Count 62.9 th/mm3 (4.0-11.0)
[2018-04-30 06:55] LABS: Carbon Dioxide 26.8 meq/L (21.0-32.0); Potassium 3.8 meq/L (3.5-5.1)
[2018-04-30 07:02] LABS: Calcium 14.9 mg/dL (8.5-10.1)
[2018-04-30 07:14] LABS: Total Protein 6.5 g/dL (6.4-8.2)
[2018-04-30 08:28] LABS: Lymphocytes 2 % (9-44); Monocytes 4 % (0-8); Promyelocyte 1 % (0-0); Toxic Vacuolation Present
[2018-04-30 08:29] LABS: Burr Cells 1+; Ovalocytes 1+; Platelet Morphology Clumped (Normal)
--- NOTE | 2018-04-30 09:15 | P.PNFP ---
Subjective Interval history: When asked how patient is doing this morning, she states "I'm dying". When asked how she was feeling, she said she was doing okay and had less of a cough. She said she feels more comfortable and less anxious. She denies any pain. She said she had not had her breakfast this morning but ate well yesterday. <TrevorRoberta C - 04/30/18 10:27> Results - Labs Result diagrams: 05/01/18 04:51 05/01/18 04:51 <Ronel Burton - 05/01/18 17:07> Abnormal lab results 04/30/18 04/30/18 Range/Units 04:38 04:38 WBC 62.9 H (4.0-11.0) th/mm3 Plt Count 601 H (150-450) th/mm3 Neut % (Auto) 92.4 H (16.0-70.0) % Lymph % (Auto) 3.2 L (9.0-44.0) % Neut # (Auto) 58.1 H (1.8-7.7) th/mm3 [place] # (Auto) 2.6 H (0.0-0.9) th/mm3 Seg Neuts % (Manual) 90 H (16-70) % Lymphocytes % (Manual) 2 L (9-44) % Promyelocytes % (Man) 1 H (0-0) % Abs Neuts (Manual) 59.8 H (1.8-7.7) th/mm3 Toxic Vacuolation Present H (None) Platelet Estimate High H (Normal) Platelet Morphology Clumped H (Normal) Ovalocytes 1+ H (None) [place] Cells 1+ H (None) Sodium 133 L (136-145) meq/L Chloride 93 L (98-107) meq/L Creatinine 1.03 H (0.50-1.00) mg/dL Estimated GFR 51 L (>89) mL/min Random Glucose 166 H (74-106) mg/dL Calcium 14.9 H* D (8.5-10.1) mg/dL Short CBC 04/30/18 Range/Units 04:38 WBC 62.9 H (4.0-11.0) th/mm3 Hgb 12.5 (11.6-15.3) gm/dL Hct 38.3 (35.0-46.0) % Plt Count 601 H (150-450) th/mm3 [facility] 04/30/18 04:38 Sodium 133 L Potassium 3.8 Chloride 93 L Carbon Dioxide 26.8 BUN 13 Creatinine 1.03 H Calcium 14.9 H* D <Ronel Burton - 05/01/18 17:07> Abnormal lab results 04/30/18 04/30/18 Range/Units 04:38 04:38 WBC 62.9 H (4.0-11.0) th/mm3 Plt Count 601 H (150-450) th/mm3 Neut % (Auto) 92.4 H (16.0-70.0) % Lymph % (Auto) 3.2 L (9.0-44.0) % Neut # (Auto) 58.1 H (1.8-7.7) th/mm3 [place] # (Auto) 2.6 H (0.0-0.9) th/mm3 Seg Neuts % (Manual) 90 H (16-70) % Lymphocytes % (Manual) 2 L (9-44) % Promyelocytes % (Man) 1 H (0-0) % Abs Neuts (Manual) 59.8 H (1.8-7.7) th/mm3 Toxic Vacuolation Present H (None) Platelet Estimate High H (Normal) Platelet Morphology Clumped H (Normal) Ovalocytes 1+ H (None) [place] Cells 1+ H (None) Sodium 133 L (136-145) meq/L Chloride 93 L (98-107) meq/L Creatinine 1.03 H (0.50-1.00) mg/dL Estimated GFR 51 L (>89) mL/min Random Glucose 166 H (74-106) mg/dL Calcium 14.9 H* D (8.5-10.1) mg/dL Short CBC 04/30/18 Range/Units 04:38 WBC 62.9 H (4.0-11.0) th/mm3 Hgb 12.5 (11.6-15.3) gm/dL Hct 38.3 (35.0-46.0) % Plt Count 601 H (150-450) th/mm3 [facility] 04/30/18 04:38 Sodium 133 L Potassium 3.8 Chloride 93 L Carbon Dioxide 26.8 BUN 13 Creatinine 1.03 H Calcium 14.9 H* D <Roberta Murray - 04/30/18 09:15> - Imaging Impressions Bone Scan Nuclear Medicine 04/29/18 00:00 CONCLUSION: 1. Minimal asymmetrical uptake in the right talus when compared to the left. 2. Unusual location metastatic disease. Correlation with plain films is suggested. <MichealRonel Geni - 05/01/18 17:07> Impressions Bone Scan Nuclear Medicine 04/29/18 00:00 CONCLUSION: 1. Minimal asymmetrical uptake in the right talus when compared to the left. 2. Unusual location metastatic disease. Correlation with plain films is suggested. <Roberta Murray - 04/30/18 09:15> Physical Exam Vital signs: Vital Signs 04/29/18 12:00 04/29/18 16:00 04/29/18 20:00 Temperature 97.9 F 97.3 F L 97.2 F L Pulse Rate 100 H 110 H 100 H Respiratory Rate 23 23 18 Blood Pressure 150/65 H 171/80 H 140/75 Pulse Oximetry 95 93 L 99 04/29/18 20:36 04/30/18 00:00 04/30/18 08:00 Temperature 97.3 F L 95.1 F L Pulse Rate 70 104 H 118 H Respiratory Rate 22 18 17 Blood Pressure 135/72 143/71 H Pulse Oximetry 94 L 93 L 94 L 04/30/18 11:08 Temperature Pulse Rate Respiratory Rate Blood Pressure Pulse Oximetry 92 L Intake & Output 04/29/18 04/30/18 04/30/18 18:59 06:59 18:59 Intake Total 1974 400 / 400 Balance 1974 400 / 400 Weight 38.1 kg Intake: IV 1605 / 1605 100 / 100 NS Inj 1,000 ML @ 150 mls/hr IV 1000 / 1000 .CONT .Q6H40M [facility] Rx#:[id number] Azithromycin Inj 500 MG In NS 250 / 250 Inj 250 ML @ 250 mls/hr IV.SIG Q24H [facility] Rx#:[id number] Maxipime Inj 2,000 MG In NS Inj 200 / 200 100 / 100 100 ML @ 200 mls/hr IV.SIG Q8H [facility] Rx#:[id number] Zometa Inj 4 MG In NS Inj 150 155 / 155 ML @ 155 mls/hr IV.SIG ONCE ONE Rx#:[id number] Oral 370 / 370 300 / 300 Other: # Voids 4 Date of Last Bowel Movement 04/29/18 # Bowel Movements 1 <Ronel Burton M - 05/01/18 17:07> Vital Signs 04/29/18 12:00 04/29/18 16:00 04/29/18 20:00 Temperature 97.9 F 97.3 F L 97.2 F L Pulse Rate 100 H 110 H 100 H Respiratory Rate 23 23 18 Blood Pressure 150/65 H 171/80 H 140/75 Pulse Oximetry 95 93 L 99 04/29/18 20:36 04/30/18 00:00 Temperature 97.3 F L Pulse Rate 70 104 H Respiratory Rate 22 18 Blood Pressure 135/72 Pulse Oximetry 94 L 93 L Intake & Output 04/29/18 04/30/18 04/30/18 18:59 06:59 18:59 Intake Total 1974 400 / 400 Balance 1974 400 / 400 Weight 38.1 kg Intake: IV 1605 / 1605 100 / 100 NS Inj 1,000 ML @ 150 mls/hr IV 1000 / 1000 .CONT .Q6H40M [facility] Rx#:[id number] Azithromycin Inj 500 MG In NS 250 / 250 Inj 250 ML @ 250 mls/hr IV.SIG Q24H [facility] Rx#:[id number] Maxipime Inj 2,000 MG In NS Inj 200 / 200 100 / 100 100 ML @ 200 mls/hr IV.SIG Q8H [facility] Rx#:[id number] Zometa Inj 4 MG In NS Inj 150 155 / 155 ML @ 155 mls/hr IV.SIG ONCE ONE Rx#:[id number] Oral 370 / 370 300 / 300 Other: # Voids 4 Date of Last Bowel Movement 04/29/18 # Bowel Movements 1 <TrevorRoberta Jacob - 04/30/18 09:15> Narrative: GENERAL: Sweating and appears chronically ill. Nasal cannula in place SKIN: Warm and dry. HEAD: Atraumatic. Normocephalic. EYES: Pupils equal and round. No scleral icterus. No injection or drainage. ENT: No nasal bleeding or discharge. Mucous membranes pink and moist. NECK: Trachea midline. No JVD. CARDIOVASCULAR: Regular rate and rhythm. RESPIRATORY: No accessory muscle use. Diminished breath sounds in the right lung vealzquez, dullness to percussion over the right lung field. GASTROINTESTINAL: Abdomen soft, non-tender, nondistended. Hepatic and splenic margins not palpable. MUSCULOSKELETAL: Extremities without clubbing, cyanosis, or edema. No obvious deformities. NEUROLOGICAL: Awake and alert. No obvious cranial nerve deficits. Motor grossly within normal limits. Five out of 5 muscle strength in the arms and legs. Normal speech. PSYCHIATRIC: Appropriate mood and affect; insight and judgment normal. <Roberta Murray - 04/30/18 10:27> Assessment and Plan - Assessment (1) Sepsis Code(s): A41.9 - Sepsis, unspecified organism Status: Acute (2) Shortness of breath Code(s): R06.02 - Shortness of breath Status: Acute (3) Hypercalcemia Code(s): E83.52 - Hypercalcemia Status: Acute (4) Weakness Code(s): R53.1 - Weakness Status: Acute (5) Constipation Code(s): K59.00 - Constipation, unspecified Status: Acute (6) Bilateral breast cancer Code(s): C50.911 - Malignant neoplasm of unspecified site of right female breast ; C50.912 - Malignant neoplasm of unspecified site of left female breast Status: Acute (7) Nutrition, metabolism, and development symptoms Code(s): R63.8 - Other symptoms and signs concerning food and fluid intake Status: Acute <Ronel Burton - 05/01/18 17:07> (1) Sepsis Code(s): A41.9 - Sepsis, unspecified organism Status: Acute Plan: Admission WBC 38.1 and tachycardic. Elevated WBC at continues to rise. ddx pneumonia or malignancy -1 L bolus saline -UA negative nitrate leuk esterase few WBC -lactic acid 2.0 -Chest X-ray: Right basilar pleural-parenchymal density as seen on previous study. Nodule left lower lobe. -daily CBC and BMP -Fluids 150 mL/hr -BCX with no growth to date (2) Shortness of breath Code(s): R06.02 - Shortness of breath Status: Acute Plan: Continued shortness of breath since discharge earlier this week for a right pleural effusion status post thoracentesis. DDX continued pleural effusion, pneumonia, malignancy. Troponin .02. Chest X-ray: Right basilar pleural- parenchymal density as seen on previous study. Nodule left lower lobe. -O2 as needed -IV antibiotics cefepime 2 g q 8hrs for 7 days and azithromycin 500 mg for at least 3 days (started 04/27) Will follow up with pathology to determine what is the etiology of the pleural effusion -20 IV lasix once (3) Hypercalcemia Code(s): E83.52 - Hypercalcemia Status: Acute Plan: Calcium at admission 12.4, 13.3 on 04/29. 14.9 on 04/30 DDX malignancy, dehydration. Received 1 L bolus -NS 150 mL/hr -one-time dose of zoledronic acid IV -Bone scan ordered by oncology -PTH intact low -PTHrp pending -20mg IV lasix once (4) Weakness Code(s): R53.1 - Weakness Status: Acute Plan: Most likely due to hypercalcemia, dehydration, and malignancy. -See workup for hypercalcemia -PT OT consult: rehab recommendations (5) Constipation Code(s): K59.00 - Constipation, unspecified Status: Acute Plan: No bowel movement for 5-6 days usually goes every other day. DDx hypercalcemia, medication effect of oxycodone, malignancy, ileus -Abdominal x-ray: No evidence of free intraperitoneal gas.The visualized bowel loops are unremarkable. -PRN milk of mag; salbador-colace, ducolax, (6) Bilateral breast cancer Code(s): C50.911 - Malignant neoplasm of unspecified site of right female breast ; C50.912 - Malignant neoplasm of unspecified site of left female breast Status: Acute Plan: Not actively being treated. Followed by Dr. Sharma -Oncology consulted: labs PTHrp Jak2 flow cytology BCR -Bone scan 04/29: Minimal asymmetrical uptake in R talus. Unusual location metastatic disease. -Palliative care consulted:Recommended physician evaluation for capacity. Patient has no advance directive so according to state law her adult children if agree serve as health care proxys. (7) Nutrition, metabolism, and development symptoms Code(s): R63.8 - Other symptoms and signs concerning food and fluid intake Status: Acute Plan: Diet: Regular Prophylaxis: Lovenox Electrolytes: Replete as needed <Roberta Murray - 04/30/18 10:14> - Assessment and Plan 82 year old female PMH bilateral breast cancer presented with continued weakness and shortness of breath. Earlier this week discharged after a right thoracentesis for R pleural effusion. Was given oxycodone on discharged. Constipation for 5-6 days. On admission septic with WBC 38.1 and tachycardia. Hypercalcemic 12.4. Was given 1 L NS bolus and started on cefepime and azithromycin for possible pneumonia. Put on 2 L NC. Abdominal x-ray: No evidence of free intraperitoneal gas.The visualized bowel loops are unremarkable. Chest X-ray: Right basilar pleural-parenchymal density as seen on previous study. Nodule left lower lobe. UA negative nitrates, leuk esterase, and few WBC. Blood cultures with no growth to date. Oncology, palliative care consulted. Calcium justice to 13.3 on 04/29. Bone scan 04/29: Minimal asymmetrical uptake in R talus. Unusual location metastatic disease. Give one-time dose of zoledronic acid IV and 20 mg IV lasix. Palliative care consulted:Recommended physician evaluation for capacity. Patient has no advance directive so according to state law her adult children if agree serve as health care proxys. Disposition: unknown Discharge: Will likely need inpatient rehab Discussed with Dr. Burton <Roberta Murray - 04/30/18 10:27> - Attending Attestation The exam, history, and the medical decision-making described in the above note were completed with the assistance of the resident physician. I reviewed and agree with the findings presented. I attest that I had a [id number] encounter with the patient on the same day, and personally performed and documented my assessment and findings in the medical record. she is delirious and has no capacity to make decisions Ms. Alegre has continued to worsen overall physically and mentally since coming to the hospital. I met her son Wale along with palliative care and we discussed how very ill his mother is. I explained that based on having a cancer that has spread and that his mother had not wanted aggressive treatment even at the beginning when her breast cancer was diagnosed 8 years ago that it was definitely incurable and that having her chest to drain fluid that if it re- accumulates that at her end stage there was very little that could be done to prevent one problem after another. I explained that his mother may not survive this hospitalization and we discussed CODE STATUS he stated that he did not believe his mother would want to be coded have chest compressions be on a ventilator and that he wanted her to be a DNR and to have her be comfortable. We did not get to any sort of discussion about hospice as he has 2 brothers who would be involved in decision-making as well. <Ronel Burton - 04/30/18 11:17> <Roberta Murray - Last Filed: 04/30/18 10:14> (1) Sepsis Qualifiers: Sepsis type: sepsis due to unspecified organism Qualified Code(s): A41.9 - Sepsis, unspecified organism <MichealRonel Arechiga - Last Filed: 05/01/18 17:07> (1) Sepsis Qualifiers: Qualified Code(s): A41.9 - Sepsis, unspecified organism <Roberta Murray - Last Filed: 04/30/18 10:14> (1) Sepsis Qualifiers: Sepsis type: sepsis due to unspecified organism Qualified Code(s): A41.9 - Sepsis, unspecified organism <Ronel Burton - Last Filed: 05/01/18 17:07> (1) Sepsis Qualifiers: Qualified Code(s): A41.9 - Sepsis, unspecified organism
[2018-04-30] MEDS: Acetaminophen 325 MG Tablet PO PRN (09:41)
--- NOTE | 2018-04-30 11:09 | P.PNONC ---
Subjective Interval history: Afebrile Patient resting in bed caught up in lines RN at bedside assisting patient with getting untangled Patient reports "a little bit" of a headache At other times she is rambling statements that do not make sense Objective Vital Signs/Intake & Output: Vital Signs 04/29/18 12:00 04/29/18 16:00 04/29/18 20:00 Temperature 97.9 F 97.3 F L 97.2 F L Pulse Rate 100 H 110 H 100 H Respiratory Rate 23 23 18 Blood Pressure 150/65 H 171/80 H 140/75 Pulse Oximetry 95 93 L 99 04/29/18 20:36 04/30/18 00:00 04/30/18 08:00 Temperature 97.3 F L 95.1 F L Pulse Rate 70 104 H 118 H Respiratory Rate 22 18 17 Blood Pressure 135/72 143/71 H Pulse Oximetry 94 L 93 L 94 L Intake & Output 04/29/18 04/30/18 04/30/18 18:59 06:59 18:59 Intake Total 1974 400 / 400 Balance 1974 400 / 400 Weight 83 lb 15.938 oz Intake: IV 1605 / 1605 100 / 100 NS Inj 1,000 ML @ 150 mls/hr IV 1000 / 1000 .CONT .Q6H40M [facility] Rx#:[id number] Azithromycin Inj 500 MG In NS 250 / 250 Inj 250 ML @ 250 mls/hr IV.SIG Q24H [facility] Rx#:[id number] Maxipime Inj 2,000 MG In NS Inj 200 / 200 100 / 100 100 ML @ 200 mls/hr IV.SIG Q8H [facility] Rx#:[id number] Zometa Inj 4 MG In NS Inj 150 155 / 155 ML @ 155 mls/hr IV.SIG ONCE ONE Rx#:[id number] Oral 370 / 370 300 / 300 Other: # Voids 4 Date of Last Bowel Movement 04/29/18 # Bowel Movements 1 Result Diagrams: 04/30/18 04:38 04/30/18 04:38 Laboratory Results: Laboratory Results - last 24 hr 04/30/18 04/30/18 04:38 04:38 WBC 62.9 H RBC 4.54 Hgb 12.5 Hct 38.3 MCV 84.5 MCH 27.5 MCHC 32.5 RDW 13.4 Plt Count 601 H MPV 7.1 Prelim Diff (Auto) Slide review pending Neut % (Auto) 92.4 H Lymph % (Auto) 3.2 L [place] % (Auto) 4.2 Eos % (Auto) 0.0 Baso % (Auto) 0.2 Neut # (Auto) 58.1 H Lymph # (Auto) 2.0 [place] # (Auto) 2.6 H Eos # (Auto) 0.0 Baso # (Auto) 0.1 WBC Differential Manual diff final Seg Neuts % (Manual) 90 H Band Neuts % (Manual) 4 Lymphocytes % (Manual) 2 L Monocytes % (Manual) 4 Promyelocytes % (Man) 1 H Abs Neuts (Manual) 59.8 H Differential Comment . Toxic Vacuolation Present H Platelet Estimate High H Platelet Morphology Clumped H Ovalocytes 1+ H Bradford Cells 1+ H Sodium 133 L Potassium 3.8 Chloride 93 L Carbon Dioxide 26.8 Anion Gap 13 BUN 13 Creatinine 1.03 H Estimated GFR 51 L Random Glucose 166 H Calcium 14.9 H* D Prot Corrected Calcium Total Protein 6.5 D Culture Results: Microbiology 04/27/18 13:20 Aerobic Blood Culture - Preliminary Blood - Peripheral No growth in 2 days Anaerobic Blood Culture - Preliminary No growth in 2 days 04/27/18 13:10 Aerobic Blood Culture - Preliminary Blood - Peripheral No growth in 2 days Anaerobic Blood Culture - Preliminary No growth in 2 days 04/27/18 13:20 Urine Culture - Final Catheterized Urine No growth in 48 hours Imaging Studies: Impressions Bone Scan Nuclear Medicine 04/29/18 00:00 CONCLUSION: 1. Minimal asymmetrical uptake in the right talus when compared to the left. 2. Unusual location metastatic disease. Correlation with plain films is suggested. Medications: Active Medications Generic Name Dose Route Start Last Admin Trade Name Freq PRN Reason Stop Dose Admin Acetaminophen 650 mg 04/27/18 16:19 04/30/18 09:41 Tylenol PO 650 mg Q4H PRN Administration PAIN 1-10 AND/OR FEVER >101F Albuterol 1 ampul 04/28/18 20:54 04/29/18 20:34 Duoneb Neb (Prn) NEB 1 ampul Q6HR NEB PRN Administration SHORTNESS OF BREATH Benzonatate 100 mg 04/28/18 21:02 04/29/18 05:21 Tessalon Perles PO 100 mg Q8H PRN Administration COUGH Bisacodyl 10 mg 04/27/18 15:25 04/29/18 16:21 Dulcolax Supp RECTAL 10 mg DAILY PRN Administration SEVERE CONSITIPATION Enoxaparin Sodium 40 mg 04/27/18 16:00 04/29/18 16:20 Lovenox Inj SQ 40 mg Q24H [facility] Administration Sodium Chloride 500 mls @ 0 mls/hr 04/27/18 13:00 04/27/18 14:14 Ns Inj IV.SIG Infused BOLUS [facility] Infusion Wide Open Sodium Chloride 500 mls @ 0 mls/hr 04/27/18 14:00 04/27/18 15:46 Ns Inj IV.SIG Infused BOLUS [facility] Infusion Wide Open Sodium Chloride 1,000 mls @ 150 mls/hr 04/27/18 15:30 04/29/18 16:25 Ns Inj IV.CONT Not Given .Q6H40M [facility] Azithromycin 500 mg/ Sodium 250 mls @ 250 mls/hr 04/28/18 15:00 04/29/18 18: 36 Chloride IV.SIG Infused Q24H [facility] In[facility] Cefepime HCl 2,000 mg/ Sodium 100 mls @ 200 mls/hr 04/27/18 17:00 04/30/18 09 :31 Chloride IV.SIG 200 mls/hr Q8H [facility] Administration Senna/Docusate Sodium 1 tab 04/27/18 21:00 04/29/18 22:11 So-Colace PO 1 tab BID [facility] Administration Sodium Chloride 2 ml 04/27/18 12:06 04/29/18 22:11 Ns Flush IV.FLUSH 2 ml PRN PRN Administration FLUSH AFTER USING IV ACCESS Objective Remarks: GENERAL: Disheveled elderly female sitting up in bed rambling SKIN: Warm and dry. HEAD: Normocephalic. EYES: No scleral icterus. No injection or drainage. NECK: Supple, trachea midline. CARDIOVASCULAR: + S1/S2. Tachycardia. RESPIRATORY: Unlabored at rest. On 3 L nasal cannula GASTROINTESTINAL: Abdomen soft, non-tender, nondistended. EXTREMITIES: No cyanosis, or edema. MUSCULOSKELETAL: Generalized weakness NEUROLOGICAL: Confused. Follows commands. Assessment/Plan - Plan Ms. Alegre is an 82-year-old female who originally presented to the hospital with complaints of generalized weakness and increasing shortness of breath. She has been diagnosed with sepsis, hypercalcemia, mild anemia and dehydration. She has a history of breast cancer and is under the care of Dr. Sharma. After reviewing Dr. Sharma's records, it appears the patient has a known history of bilateral ER positive breast cancer, originally diagnosed in 2009 she has refused surgical intervention and it has appears to have been non- compliant with many of the oral medication regimens. The most recent medication was toremifene (rx'd early February, pt began mid-March) she stopped on 04/17/18 due to side effects. Plan: 1. The patient remains on cefepime and azithromycin for urosepsis. Cultures remain negative. Unfortunately white count continues to increase. As the white cells are predominantly neutrophils in nature this would appear to be an infectious process however it is unusual to see a white count elevated this high for urosepsis. 2. We will check flow cytometry, Akash 2 and FISH for BCR ABL to evaluate for any myeloproliferative process. 3. Patient's tumor marker was ultimately normal. Anticipate hypercalcemia to resolve with patient receiving Zometa and continued IV fluids. 4. Patient appears to have worsening altered mental status. I have ordered a CT of the brain to evaluate for any possible metastatic disease. 5. Continue supportive care. - Attending Statement The exam, history, and the medical decision-making described in the above note were completed with the assistance of the mid-level provider. I reviewed and agree with the findings presented. I attest that I had a [id number] encounter with the patient on the same day, and personally performed and documented my assessment and findings in the medical record. Patient is slightly confused. Denies any headache or neck pain. White blood cell continued to trend up above 60,000. Patient remains afebrile and culture has been negative. Will check flow cytometry BCR/ABL and Akash 2. Continue antibiotics for now. I will also review her records from Dr. Sharma's office.
[2018-04-30] MEDS: Senna/Docusate Sodium 8.6/50 MG Tablet PO SCH ×2 (11:14→22:43)
--- NOTE | 2018-04-30 11:41 | CT ---
EXAM DATE: 04/30/2018 11:32 AM EDT AGE/SEX: 82 years / Female INDICATIONS: Altered mental status CLINICAL DATA: This is the patient's initial encounter. Patient reports that signs and symptoms have been present for 1 day and indicates a pain score of 0/10. MEDICAL/SURGICAL HISTORY: Carcinoma, breast. None. RADIATION DOSE: 36.07 CTDI (mGy) COMPARISON: [facility], CT BRAIN W/O CONTRAST, 10/07/2015. . TECHNIQUE: CT of the head without contrast. Using automated exposure control and adjustment of the mA and/or kV according to patient size, radiation dose was kept as low as reasonably achievable to ob tain optimal diagnostic quality images. DICOM format image data is available electronically for revi ew and comparison. FINDINGS: There is patchy hypodensity in the bilateral centrum semiovale and periventricular white matter most characteristic of chronic microvascular ischemic disease. Remote left cerebellar lacunar infarct susp ected. No signs of acute infarct, hemorrhage or mass. No fractures. CONCLUSION: 1. No acute findings. . Electronically signed by: Carroll Yen MD 04/30/2018 11:40 AM EDT
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
[2018-04-30] MEDS: Azithromycin Inj 500 MG in Sodium Chlor 0.9% Inj 250 ML IV.SIG SCH (15:02)
[2018-04-30] MEDS: Enoxaparin Inj 40 MG/0.4 ML Syringe SQ SCH (17:06)
[2018-04-30] MEDS: Propranolol 10 MG Tablet PO PRN (23:48)
[2018-04-30] MEDS: Sod Chloride 0.9% Inj 1,000 ML IV.CONT SCH ×2 (23:52→23:53)
[2018-05-01 06:06] LABS: Hematocrit 37.1 % (35.0-46.0); Mean Corpuscular HGB Conc 32.4 % (32.0-36.0); Mean Corpuscular Hemoglobin 27.5 pg (27.0-34.0); Platelet Count 629 th/mm3 (150-450); Red Blood Count 4.37 mil/mm3 (4.00-5.30); Red Cell Distribution Width 13.3 % (11.6-17.2); White Blood Count 69.8 th/mm3 (4.0-11.0)
[2018-05-01 06:33] LABS: Carbon Dioxide 27.2 meq/L (21.0-32.0); Potassium 3.9 meq/L (3.5-5.1)
[2018-05-01 07:01] LABS: Lymphocytes 1 % (9-44); Metamyelocytes 1 % (0-1); Monocytes 9 % (0-8); Myelocytes 1 % (0-0); Platelet Morphology Normal (Normal)
[2018-05-01 07:02] LABS: RBC Morphology Normal (Normal); Total Protein 6.3 g/dL (6.4-8.2)
[2018-05-01 07:18] LABS: Calcium 13.8 mg/dL (8.5-10.1)
[2018-05-01] MEDS: Sod Chloride 0.9% Inj 1,000 ML IV.CONT SCH ×4 (07:55→22:13)
--- NOTE | 2018-05-01 09:01 | P.PNFP ---
Subjective Interval history: Patient continued to be tachycardic overnight with mild improvement with p.o. propranolol. Nursing staff reported that patient continue to crown to be confused overnight. Patient currently oriented to person but not to place. Patient is asking for water and reports abdominal pain. Continues to have excessive sweating and worsening confusion. <Fransisco Jones - 05/01/18 10:17> Results - Labs Result diagrams: 05/01/18 04:51 05/01/18 04:51 <Ronel Burton - 05/01/18 17:32> Abnormal lab results 05/01/18 05/01/18 Range/Units 04:51 04:51 WBC 69.8 H (4.0-11.0) th/mm3 Plt Count 629 H (150-450) th/mm3 Seg Neuts % (Manual) 86 H (16-70) % Lymphocytes % (Manual) 1 L (9-44) % Monocytes % (Manual) 9 H (0-8) % Myelocytes % (Man) 1 H (0-0) % Abs Neuts (Manual) 62.8 H (1.8-7.7) th/mm3 Platelet Estimate High H (Normal) Sodium 135 L (136-145) meq/L Chloride 97 L (98-107) meq/L BUN 23 H (7-18) mg/dL Creatinine 1.24 H (0.50-1.00) mg/dL Estimated GFR 41 L (>89) mL/min Random Glucose 192 H (74-106) mg/dL Calcium 13.8 H* D (8.5-10.1) mg/dL Total Protein 6.3 L (6.4-8.2) g/dL Short CBC 05/01/18 Range/Units 04:51 WBC 69.8 H (4.0-11.0) th/mm3 Hgb 12.0 (11.6-15.3) gm/dL Hct 37.1 (35.0-46.0) % Plt Count 629 H (150-450) th/mm3 BMP 05/01/18 04:51 Sodium 135 L Potassium 3.9 Chloride 97 L Carbon Dioxide 27.2 BUN 23 H Creatinine 1.24 H Calcium 13.8 H* D <Ronel Burton - 05/01/18 17:32> Abnormal lab results 05/01/18 05/01/18 Range/Units 04:51 04:51 WBC 69.8 H (4.0-11.0) th/mm3 Plt Count 629 H (150-450) th/mm3 Seg Neuts % (Manual) 86 H (16-70) % Lymphocytes % (Manual) 1 L (9-44) % Monocytes % (Manual) 9 H (0-8) % Myelocytes % (Man) 1 H (0-0) % Abs Neuts (Manual) 62.8 H (1.8-7.7) th/mm3 Platelet Estimate High H (Normal) Sodium 135 L (136-145) meq/L Chloride 97 L (98-107) meq/L BUN 23 H (7-18) mg/dL Creatinine 1.24 H (0.50-1.00) mg/dL Estimated GFR 41 L (>89) mL/min Random Glucose 192 H (74-106) mg/dL Calcium 13.8 H* D (8.5-10.1) mg/dL Total Protein 6.3 L (6.4-8.2) g/dL Short CBC 05/01/18 Range/Units 04:51 WBC 69.8 H (4.0-11.0) th/mm3 Hgb 12.0 (11.6-15.3) gm/dL Hct 37.1 (35.0-46.0) % Plt Count 629 H (150-450) th/mm3 BMP 05/01/18 04:51 Sodium 135 L Potassium 3.9 Chloride 97 L Carbon Dioxide 27.2 BUN 23 H Creatinine 1.24 H Calcium 13.8 H* D <Fransisco Jones - 05/01/18 09:01> - Imaging Impressions Abdomen/Pelvis CT 05/01/18 00:00 CONCLUSION: No evidence of acute abdominal process. Large right effusion Markedly enlarged fibroid uterus. Chest CT 05/01/18 00:00 CONCLUSION: 1. Complete collapse of the right lung secondary to a large pleural effusion occupying the entire right hemithorax. 2. There is mild pleural thickening also noted which is nonspecific though should be viewed with suspicion for possible metastatic disease. 3. Irregular left breast mass presumably the patient's known malignancy. 4. Pericardial effusion. 5. Adrenal nodule. <Ronel Burton - 08/29/18 17:32> Impressions Head CT 04/30/18 00:00 CONCLUSION: 1. No acute findings. . <Fransisco Jones B - 05/01/18 09:01> Physical Exam Vital signs: Vital Signs 04/30/18 20:00 05/01/18 00:00 05/01/18 04:00 Temperature 97.5 F L 97.2 F L 97.3 F L Pulse Rate 117 H 111 H 105 H Respiratory Rate 18 16 16 Blood Pressure 158/74 H 193/98 H 165/80 H Pulse Oximetry 94 L 93 L 93 L 05/01/18 08:00 05/01/18 09:29 05/01/18 12:00 Temperature 97.3 F L 97.2 F L Pulse Rate 116 H 125 H 105 H Respiratory Rate 24 24 22 Blood Pressure 144/65 H 167/85 H Pulse Oximetry 93 L 94 L 93 L 05/01/18 16:00 Temperature 97.3 F L Pulse Rate 125 H Respiratory Rate 21 Blood Pressure 141/82 H Pulse Oximetry 91 L Intake & Output 04/30/18 05/01/18 05/01/18 18:59 06:59 18:59 Intake Total 650 / 650 1100 / 1100 Output Total 800 / 800 200 / 200 Balance -150 / -150 900 / 900 Intake: IV 350 / 350 1100 / 1100 NS Inj 1,000 ML @ 150 mls/hr IV 1000 / 1000 .CONT .Q6H40M COOPER Rx#:[id number] Azithromycin Inj 500 MG In NS 250 / 250 Inj 250 ML @ 250 mls/hr IV.SIG Q24H [facility] Rx#:[id number] Maxipime Inj 2,000 MG In NS Inj 100 / 100 100 / 100 100 ML @ 200 mls/hr IV.SIG Q12H [facility] Rx#:[id number] Oral 300 / 300 0 / 0 Output: Urine 800 / 800 200 / 200 Other: Date of Last Bowel Movement 04/30/18 # Bowel Movements 0 <Ronel Burton - 05/01/18 17:32> Vital Signs 04/30/18 11:08 04/30/18 12:00 04/30/18 16:00 Temperature 96.7 F L 97.9 F Pulse Rate 111 H 107 H Respiratory Rate 19 17 Blood Pressure 164/78 H 166/80 H Pulse Oximetry 92 L 94 L 93 L 04/30/18 20:00 05/01/18 00:00 05/01/18 04:00 Temperature 97.5 F L 97.2 F L 97.3 F L Pulse Rate 117 H 111 H 105 H Respiratory Rate 18 16 16 Blood Pressure 158/74 H 193/98 H 165/80 H Pulse Oximetry 94 L 93 L 93 L 05/01/18 08:00 Temperature 97.3 F L Pulse Rate 116 H Respiratory Rate 24 Blood Pressure 144/65 H Pulse Oximetry 93 L Intake & Output 04/30/18 05/01/18 05/01/18 18:59 06:59 18:59 Intake Total 650 / 650 1100 / 1100 Output Total 800 / 800 200 / 200 Balance -150 / -150 900 / 900 Intake: IV 350 / 350 1100 / 1100 NS Inj 1,000 ML @ 150 mls/hr IV 1000 / 1000 .CONT .Q6H40M [facility] Rx#:[id number] Azithromycin Inj 500 MG In NS 250 / 250 Inj 250 ML @ 250 mls/hr IV.SIG Q24H [facility]OOEPR Rx#:[id number] Maxipime Inj 2,000 MG In NS Inj 100 / 100 100 / 100 100 ML @ 200 mls/hr IV.SIG Q12H [facility] Rx#:[id number] Oral 300 / 300 0 / 0 Output: Urine 800 / 800 200 / 200 Other: Date of Last Bowel Movement 04/30/18 # Bowel Movements 0 <Fransisco Jones - 05/01/18 09:01> Narrative: GENERAL: Sweating and appears chronically ill. Nasal cannula in place SKIN: Warm and dry. HEAD: Atraumatic. Normocephalic. EYES: Pupils equal and round. No scleral icterus. No injection or drainage. ENT: No nasal bleeding or discharge. Mucous membranes pink and moist. NECK: Trachea midline. No JVD. CARDIOVASCULAR: Tachycardic to the 100s with a regular rhythm RESPIRATORY: No accessory muscle use. Diminished breath sounds in the right lung velazquez, dullness to percussion over the right lung field. No rales appreciated GASTROINTESTINAL: Abdomen soft, mildly distended and diffusely tender to palpation. Hypoactive bowel sounds. Hepatic and splenic margins not palpable. MUSCULOSKELETAL: Extremities without clubbing, cyanosis, or edema. No obvious deformities. NEUROLOGICAL: Awake and alert. No obvious cranial nerve deficits. Motor grossly within normal limits. PSYCHIATRIC: Patient attempts to answer questions appropriately but can often not complete her thoughts. Oriented to person not to place <Fransisco Jones B - 05/01/18 10:17> Assessment and Plan - Assessment (1) Sepsis Code(s): A41.9 - Sepsis, unspecified organism Status: Acute (2) Shortness of breath Code(s): R06.02 - Shortness of breath Status: Acute (3) Hypercalcemia Code(s): E83.52 - Hypercalcemia Status: Acute (4) Weakness Code(s): R53.1 - Weakness Status: Acute (5) Constipation Code(s): K59.00 - Constipation, unspecified Status: Acute (6) Bilateral breast cancer Code(s): C50.911 - Malignant neoplasm of unspecified site of right female breast ; C50.912 - Malignant neoplasm of unspecified site of left female breast Status: Acute (7) Nutrition, metabolism, and development symptoms Code(s): R63.8 - Other symptoms and signs concerning food and fluid intake Status: Acute <Ronel Burton - 05/01/18 17:32> (1) Bilateral breast cancer Code(s): C50.911 - Malignant neoplasm of unspecified site of right female breast ; C50.912 - Malignant neoplasm of unspecified site of left female breast Status: Acute Plan: Not actively being treated. Followed by Dr. Sharma -Oncology consulted: labs PTHrp Jak2 flow cytology BCR -Bone scan 04/29: Minimal asymmetrical uptake in R talus. Unusual location metastatic disease. -CT head on 04/30 showed no acute findings. -Palliative care consulted: I spoke with 1 of her 3 children and she is currently DNR. Her other 2 children reportedly are on their way here. Patient has no advance directive so according to state law her adult children if agree serve as health care proxys. (2) Leukocytosis Code(s): D72.829 - Elevated white blood cell count, unspecified Status: Acute Plan: Patient presented with a leukocytosis on admission with a WBC count of 30, has continued to trend up to 69 today despite being on antibiotics to cover for pneumonia -Concern for malignancy as etiology -Oncology consulted, see workup as above (3) Thrombocytosis Code(s): D47.3 - Essential (hemorrhagic) thrombocythemia Status: Acute Plan: Platelet count on presentation was 506 and is continued to trend upward now at 629 Again concern for some type of bone marrow malignancy/malfunction See oncology workup as above (4) Shortness of breath Code(s): R06.02 - Shortness of breath Status: Acute Plan: Continued shortness of breath since discharge earlier this week for a right pleural effusion status post thoracentesis. DDX continued pleural effusion, pneumonia, malignancy.Chest X-ray: Right basilar pleural-parenchymal density as seen on previous study. Nodule left lower lobe. -O2 as needed -IV antibiotics cefepime 2 g q 8hrs for 7 days and azithromycin 500 mg for at least 3 days (started 04/27) Will follow up with pathology to determine what is the etiology of the pleural effusion -DuoNeb's as needed -20 IV lasix once on 04/30, no significant change (5) Hypercalcemia Code(s): E83.52 - Hypercalcemia Status: Acute Plan: Calcium at admission 12.4 ended up to 14.9 on 04/30 and now 13.8 on 05/01. DDX malignancy, dehydration. -NS 150 mL/hr -one-time dose of zoledronic acid IV on 04/29 -Gave one-time Lasix 20 mg IV on 04/30 -PTH intact low -PTHrp pending (6) Sepsis Code(s): A41.9 - Sepsis, unspecified organism Status: Acute Plan: Admission WBC 38.1 and tachycardic. Elevated WBC at continues to rise. ddx pneumonia or malignancy -UA negative nitrate leuk esterase few WBC -lactic acid 2.0 -Chest X-ray: Right basilar pleural-parenchymal density as seen on previous study. Nodule left lower lobe. -daily CBC and BMP -Fluids 150 mL/hr -BCX with no growth to date -See antibiotics as above -However while she technically meets SIRS criteria, the etiology of her leukocytosis and tachycardia are likely secondary to malignancy. (7) Constipation Code(s): K59.00 - Constipation, unspecified Status: Acute Plan: No bowel movement for 5-6 days usually goes every other day. DDx hypercalcemia, medication effect of oxycodone, malignancy, ileus -Abdominal x-ray: No evidence of free intraperitoneal gas.The visualized bowel loops are unremarkable. -PRN milk of mag; salbador-colace, ducolax, (8) Weakness Code(s): R53.1 - Weakness Status: Acute Plan: Most likely due to hypercalcemia, dehydration, and malignancy. -See workup for hypercalcemia -PT OT consult: rehab recommendations (9) Tachycardia Code(s): R00.0 - Tachycardia, unspecified Status: Acute Plan: Patient has become tachycardic to the 120s EKG showed sinus tachycardia -Propanolol 2 mg 3 times daily as needed for heart rate greater than 110 (10) Nutrition, metabolism, and development symptoms Code(s): R63.8 - Other symptoms and signs concerning food and fluid intake Status: Acute Plan: Diet: Regular Prophylaxis: Lovenox Electrolytes: Replete as needed <Fransisco Jones - 05/01/18 10:04> - Assessment and Plan 82 year old female PMH bilateral breast cancer presented with continued weakness and shortness of breath. Earlier this week discharged after a right thoracentesis for R pleural effusion. Was given oxycodone on discharged. Constipation for 5-6 days. On admission septic with WBC 38.1 and tachycardia. Hypercalcemic 12.4. Was given 1 L NS bolus and started on cefepime and azithromycin for possible pneumonia. Put on 2 L NC. Abdominal x-ray: No evidence of free intraperitoneal gas.The visualized bowel loops are unremarkable. Chest X-ray: Right basilar pleural-parenchymal density as seen on previous study. Nodule left lower lobe. UA negative nitrates, leuk esterase, and few WBC. Blood cultures with no growth to date. Oncology, palliative care consulted. Calcium justice to 13.3 on 04/29. Bone scan 04/29: Minimal asymmetrical uptake in R talus. Unusual location metastatic disease. Give one-time dose of zoledronic acid IV and [address] head showed no acute findings. Palliative care consulted: Patient has no advance directive so according to state law her adult children if agree serve as health care proxys. Palliative is present with 1 son who agreed to make patient DNR, other to children are in route per nursing staff. Disposition: unknown Discharge: Will likely need inpatient rehab Discussed with Dr. Burton <Fransisco Jones - 05/01/18 10:17> - Attending Attestation The exam, history, and the medical decision-making described in the above note were completed with the assistance of the resident physician. I reviewed and agree with the findings presented. I attest that I had a [id number] encounter with the patient on the same day, and personally performed and documented my assessment and findings in the medical record. She is extremely ill. She has had the sweating, weight loss and other problems for more than a month before coming in the hospital. Now she seems to be in some sort of accelerated phase of worsening. Based on her being a DNR and her end-stage cancer where she never was willing to undergo aggressive treatment even when she was healthiest, will work hard to make her comfortable will give her Lasix IV will also give her some morphine for her shortness of breath and discomfort and a little bit of Ativan as she does have some evident anxiety. I am concerned that she probably is getting some effusion back in her lungs oncology ordered a CT. This lady cannot agree to any procedures so her sons would need to agree if there was going to be another chest tube placed. She would definitely be a hospice candidate if her children were in agreement with that. It is difficult to decide to put a chest tube in if she has no end point as far as being able to get any cure to her cancer. Her calcium was so high it is begun to come down a little bit we will continue to give fluids and Lasix and hopefully her bisphosphonate will pull her calcium down a little more. Unfortunately as I explained to her son this lady appears to be dying. <Ronel Burton M - 05/01/18 17:32> <Fransisco Jones - Last Filed: 05/01/18 10:04> (2) Leukocytosis Qualifiers: Leukocytosis type: unspecified Qualified Code(s): D72.829 - Elevated white blood cell count, unspecified (6) Sepsis Qualifiers: Sepsis type: sepsis due to unspecified organism Qualified Code(s): A41.9 - Sepsis, unspecified organism <Ronel Burton M - Last Filed: 05/01/18 17:32> (1) Sepsis Qualifiers: Sepsis type: sepsis due to unspecified organism Qualified Code(s): A41.9 - Sepsis, unspecified organism <Fransisco Jones - Last Filed: 05/01/18 10:04> (2) Leukocytosis Qualifiers: Leukocytosis type: unspecified Qualified Code(s): D72.829 - Elevated white blood cell count, unspecified (6) Sepsis Qualifiers: Sepsis type: sepsis due to unspecified organism Qualified Code(s): A41.9 - Sepsis, unspecified organism <Ronel Burton - Last Filed: 05/01/18 17:32> (1) Sepsis Qualifiers: Sepsis type: sepsis due to unspecified organism Qualified Code(s): A41.9 - Sepsis, unspecified organism
[2018-05-01] MEDS: Senna/Docusate Sodium 8.6/50 MG Tablet PO SCH ×2 (09:07→22:11)
--- NOTE | 2018-05-01 16:17 | CT ---
EXAM DATE: 05/01/2018 3:55 PM EDT AGE/SEX: 82 years / Female INDICATIONS: Chest pain. CLINICAL DATA: This is the patient's initial encounter. Patient reports that signs and symptoms have been present for 1 day and indicates a pain score of 3/10. MEDICAL/SURGICAL HISTORY: Carcinoma, breast. Subdural hematoma. . Right hip surgery. RADIATION DOSE: 19.83 CTDI (mGy) ; Combined studies COMPARISON: [facility], CHEST 1V SINGLE AP, 04/27/2018. . TECHNIQUE: Multiple contiguous axial images were obtained through the chest without contrast. Image s were obtained in suspended respiration using multiple row detector helical technique. Using automa natalia exposure control and adjustment of the mA and/or kV according to patient size, radiation dose was kept as low as reasonably achievable to obtain optimal diagnostic quality images. DICOM format imag e data is available electronically for review and comparison. FINDINGS: There is complete opacification of the right hemithorax secondary to a large right effusion with asso ciated collapse of the right lung there are multiple left-sided lung nodules seen in the upper and lo wer lobes. The largest in the left upper lobe measures 6.8 mm on image 22. The largest in the left lo wer lobe measures 1.6 cm on image 36. There is no definite adenopathy in the mediastinum. Small peric ardial effusion is noted. Tiny left pleural effusion. A left adrenal mass is suspected measuring 2.2 x 1.3 cm. There does appear to be pleural thickening in the right lung posteriorly which may be relat ed to metastatic disease. There is an irregular mass in the left breast measuring 2.3 cm. Review of b one windows demonstrate degenerative changes of the spine. CONCLUSION: 1. Complete collapse of the right lung secondary to a large pleural effusion occupying the entire [facility] hemithorax. 2. There is mild pleural thickening also noted which is nonspecific though should be viewed with perla picion for possible metastatic disease. 3. Irregular left breast mass presumably the patient's known malignancy. 4. Pericardial effusion. 5. Adrenal nodule. Electronically signed by: Carroll Yen MD 05/01/2018 4:16 PM EDT
--- NOTE | 2018-05-01 16:27 | CT ---
EXAM DATE: 05/01/2018 3:53 PM EDT AGE/SEX: 82 years / Female INDICATIONS: Abdominal pain. CLINICAL DATA: This is the patient's initial encounter. Patient reports that signs and symptoms have been present for 1 day and indicates a pain score of 4/10. MEDICAL/SURGICAL HISTORY: Carcinoma, breast. Subdural hematoma. . Right hip surgery RADIATION DOSE: 19.83 CTDI (mGy) ; Combined studies COMPARISON: [facility], CT ABDOMEN AND PELVIS W/O CONTRAST, 04/26/2018. . TECHNIQUE: Multiple contiguous axial images were obtained through the abdomen. Images were obtained using multiple row detector helical technique. Using automated exposure control and adjustment of the mA and/or kV according to patient size, radiation dose was kept as low as reasonably achievable to o btain optimal diagnostic quality images. DICOM format image data is available electronically for rev iew and comparison. FINDINGS: There are nodules in the left lower lobe characteristic of metastatic disease is seen on the prior ex am. Large right-sided effusion is present with right basilar atelectasis. Pericardial effusion is pre sent which is unchanged. There is a small amount of fluid beneath the dome of the liver. No focal hepatic lesions are identifi ed. The spleen is normal in size and free of focal defects. The gallbladder and pancreas are unremar kable. No intrahepatic or extrahepatic ductal dilatation is seen. The adrenal glands and kidneys appe ar normal bilaterally. No hydronephrosis or mass lesions are identified. Examination of the pelvis demonstrates no evidence of free fluid or pelvic mass. No abnormally enlarg ed inguinal or retroperitoneal lymph nodes are present. The bladder is unremarkable. A markedly enlar ged uterus with calcifications characteristic of fibroids is present. There is no evidence of abscess . Retained barium is present within the colon. CONCLUSION: No evidence of acute abdominal process. Large right effusion Markedly enlarged fibroid uterus. Electronically signed by: Ortega Reid MD 05/01/2018 4:25 PM EDT
[2018-05-01] MEDS: Azithromycin Inj 500 MG in Sodium Chlor 0.9% Inj 250 ML IV.SIG SCH (16:40)
[2018-05-01] MEDS: Enoxaparin Inj 40 MG/0.4 ML Syringe SQ SCH (16:40)
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
[2018-05-01] MEDS ORDERED: Morphine Inj 4 MG/ML Vial IV.PUSH PRN (16:45)
--- NOTE | 2018-05-01 17:13 | P.PNONC ---
Subjective Interval history: Patient lying in bed, diaphoretic, with labored breathing. She complains of feeling weak and is in need of energy. She denies shortness of breath, however her breathing is labored. Maurice, from palliative care, is also present during my evaluation. The patient appears oriented, however at times it is difficult to understand what she is trying to say. The patient's head was elevated and Maurice began feeding her lunch and giving her oral hydration. The patient tolerated this and appeared to be more comfortable. Objective Vital Signs/Intake & Output: Vital Signs 04/30/18 20:00 05/01/18 00:00 05/01/18 04:00 Temperature 97.5 F L 97.2 F L 97.3 F L Pulse Rate 117 H 111 H 105 H Respiratory Rate 18 16 16 Blood Pressure 158/74 H 193/98 H 165/80 H Pulse Oximetry 94 L 93 L 93 L 05/01/18 08:00 05/01/18 09:29 05/01/18 12:00 Temperature 97.3 F L 97.2 F L Pulse Rate 116 H 125 H 105 H Respiratory Rate 24 24 22 Blood Pressure 144/65 H 167/85 H Pulse Oximetry 93 L 94 L 93 L 05/01/18 16:00 Temperature 97.3 F L Pulse Rate 125 H Respiratory Rate 21 Blood Pressure 141/82 H Pulse Oximetry 91 L Intake & Output 04/30/18 05/01/18 05/01/18 18:59 06:59 18:59 Intake Total 650 / 650 1100 / 1100 Output Total 800 / 800 200 / 200 Balance -150 / -150 900 / 900 Intake: IV 350 / 350 1100 / 1100 NS Inj 1,000 ML @ 150 mls/hr IV 1000 / 1000 .CONT .Q6H40M [facility] Rx#:[id number] Azithromycin Inj 500 MG In NS 250 / 250 Inj 250 ML @ 250 mls/hr IV.SIG Q24H [facility] Rx#:[id number] Maxipime Inj 2,000 MG In NS Inj 100 / 100 100 / 100 100 ML @ 200 mls/hr IV.SIG Q12H [facility] Rx#:[id number] Oral 300 / 300 0 / 0 Output: Urine 800 / 800 200 / 200 Other: Date of Last Bowel Movement 04/30/18 # Bowel Movements 0 Result Diagrams: 05/01/18 04:51 05/01/18 04:51 Laboratory Results: Laboratory Results - last 24 hr 05/01/18 05/01/18 04:51 04:51 WBC 69.8 H RBC 4.37 Hgb 12.0 Hct 37.1 MCV 85.0 MCH 27.5 MCHC 32.4 RDW 13.3 Plt Count 629 H MPV 7.0 Prelim Diff (Auto) Manual diff required WBC Differential Manual diff final Seg Neuts % (Manual) 86 H Band Neuts % (Manual) 2 Lymphocytes % (Manual) 1 L Monocytes % (Manual) 9 H Metamyelocytes % (Man) 1 Myelocytes % (Man) 1 H Abs Neuts (Manual) 62.8 H Differential Comment . Platelet Estimate High H Platelet Morphology Normal RBC Morphology Normal Sodium 135 L Potassium 3.9 Chloride 97 L Carbon Dioxide 27.2 Anion Gap 11 BUN 23 H Creatinine 1.24 H Estimated GFR 41 L Random Glucose 192 H Calcium 13.8 H* D Prot Corrected Calcium Total Protein 6.3 L Culture Results: Microbiology 04/27/18 13:20 Aerobic Blood Culture - Preliminary Blood - Peripheral No growth in 4 days Anaerobic Blood Culture - Preliminary No growth in 4 days 04/27/18 13:10 Aerobic Blood Culture - Preliminary Blood - Peripheral No growth in 4 days Anaerobic Blood Culture - Preliminary No growth in 4 days 04/27/18 13:20 Urine Culture - Final Catheterized Urine No growth in 48 hours Imaging Studies: Impressions Abdomen/Pelvis CT 05/01/18 00:00 CONCLUSION: No evidence of acute abdominal process. Large right effusion Markedly enlarged fibroid uterus. Chest CT 05/01/18 00:00 CONCLUSION: 1. Complete collapse of the right lung secondary to a large pleural effusion occupying the entire right hemithorax. 2. There is mild pleural thickening also noted which is nonspecific though should be viewed with suspicion for possible metastatic disease. 3. Irregular left breast mass presumably the patient's known malignancy. 4. Pericardial effusion. 5. Adrenal nodule. Medications: Active Medications Generic Name Dose Route Start Last Admin Trade Name Freq PRN Reason Stop Dose Admin Acetaminophen 650 mg 04/27/18 16:19 04/30/18 09:41 Tylenol PO 650 mg Q4H PRN Administration PAIN 1-10 AND/OR FEVER >101F Albuterol 1 ampul 04/28/18 20:54 05/01/18 09:28 Duoneb Neb (Prn) NEB 1 ampul Q6HR NEB PRN Administration SHORTNESS OF BREATH Benzonatate 100 mg 04/28/18 21:02 04/29/18 05:21 Tessalon Perles PO 100 mg Q8H PRN Administration COUGH Bisacodyl 10 mg 04/27/18 15:25 04/29/18 16:21 Dulcolax Supp RECTAL 10 mg DAILY PRN Administration SEVERE CONSITIPATION Enoxaparin Sodium 40 mg 04/27/18 16:00 05/01/18 16:40 Lovenox Inj SQ 40 mg Q24H COOPER Administration Sodium Chloride 500 mls @ 0 mls/hr 04/27/18 13:00 04/27/18 14:14 Ns Inj IV.SIG Infused BOLUS COOPER Infusion Wide Open Sodium Chloride 500 mls @ 0 mls/hr 04/27/18 14:00 04/27/18 15:46 Ns Inj IV.SIG Infused BOLUS COOPER Infusion Wide Open Sodium Chloride 1,000 mls @ 150 mls/hr 04/27/18 15:30 05/01/18 16:41 Ns Inj IV.CONT 150 mls/hr .Q6H40M COOPER Administration Azithromycin 500 mg/ Sodium 250 mls @ 250 mls/hr 04/28/18 15:00 05/01/18 16: 40 Chloride IV.SIG 250 mls/hr Q24H COOPER Administration Cefepime HCl 2,000 mg/ Sodium 100 mls @ 200 mls/hr 04/30/18 21:00 05/01/18 09 :07 Chloride IV.SIG 200 mls/hr Q12H COOPER Administration Propranolol HCl 10 mg 04/30/18 15:10 04/30/18 23:48 Inderal PO 10 mg Q8HR PRN Administration RAPID HEART RATE Senna/Docusate Sodium 1 tab 04/27/18 21:00 05/01/18 09:07 So-Colace PO 1 tab BID COOPER Administration Sodium Chloride 2 ml 04/27/18 12:06 04/29/18 22:11 Ns Flush IV.FLUSH 2 ml PRN PRN Administration FLUSH AFTER USING IV ACCESS Objective Remarks: GENERAL: Ill-appearing female patient, lying in bed, with labored breathing. SKIN: Warm and dry. HEAD: Normocephalic. EYES: No scleral icterus. No injection or drainage. NECK: Supple, trachea midline. CARDIOVASCULAR: Regular rate and rhythm without murmurs. RESPIRATORY: Breath sounds diminished. Labored. On 5L NC. GASTROINTESTINAL: Abdomen soft, non-tender, nondistended. EXTREMITIES: No cyanosis, or edema. MUSCULOSKELETAL: Generalized weakness. NEUROLOGICAL: No obvious focal deficit. Answers questions. Assessment/Plan - Plan Ms. Alegre is an 82-year-old female who originally presented to the hospital with complaints of generalized weakness and increasing shortness of breath. She has been diagnosed with sepsis, hypercalcemia, mild anemia and dehydration. She has a history of breast cancer and is under the care of Dr. Sharma. After reviewing Dr. Sharma's records, it appears the patient has a known history of bilateral ER positive breast cancer, originally diagnosed in 2009 she has refused surgical intervention and it has appears to have been non- compliant with many of the oral medication regimens. The most recent medication was toremifene (rx'd early February, pt began mid-March) she stopped on 04/17/18 due to side effects. Plan: 1. The patient remains on cefepime and azithromycin for urosepsis. Cultures remain negative. 2. Flow cytometry, Akash 2 and FISH for BCR ABL to evaluate for any myeloproliferative process, pending. 3. Continue IV fluids for hypercalcemia. 4. CT chest shows large right pleural effusion with lung collapse. I have consulted IR for thoracentesis. 5. Also resulting in the CT chest with mild pleural thickening which is nonspecific, however should be viewed with suspicion for possible metastatic disease. Irregular left breast mass presumably the patient's known malignancy, pericardial effusion and adrenal nodule. 6. I spoke with the RN and requested that someone feed the patient her meals as she is unable to do this herself. - Attending Statement The exam, history, and the medical decision-making described in the above note were completed with the assistance of the mid-level provider. I reviewed and agree with the findings presented. I attest that I had a [id number] encounter with the patient on the same day, and personally performed and documented my assessment and findings in the medical record.WHen I saw pt in the morning, she was oriented to place and event. She is weak. WBC trended up higher although she remains afebrile. Flowcytometery pending. CT showed large pleural effusion. SHe is going to need thoracentesis for palliation. The mild confusion and weakness likely due to hypercalcemia. Ca trended lower with zometa. Discussed with , pt recent pleural fluid cytology was negative for malignancy. CT did not show wide spread metastatic disease. However, pt had refused aggressive treatment in the past and often self discontinued treatment. Continue supportive care and antibiotics.
--- NOTE | 2018-05-01 21:55 | ECG ---
Date Performed: 04/30/2018 Time Performed: 12:13:41 PTAGE: 82 years EKG: SINUS TACHYCARDIA WITH OCCASIONAL SUPRAVENTRICULAR PREMATURE COMPLEXES MARKED LEFT AXIS DEV IATION NONSPECIFIC T-WAVE ABNORMALITY ABNORMAL ECG PREVIOUS TRACING : 04/27/2018 13.09 Since the previous tracing, no significant change noted DOCTOR: Zaire Delgado Interpretating Date/Time 05/01/2018 21:53:49
[2018-05-02] MEDS: Propranolol 10 MG Tablet PO PRN (04:00)
[2018-05-02 06:14] LABS: Baso # (Auto) 0.1 th/mm3 (0.0-0.2); Baso % (Auto) 0.2 % (0.0-2.0); Hematocrit 34.9 % (35.0-46.0); Hemoglobin 11.6 gm/dL (11.6-15.3); Lymph # (Auto) 1.9 th/mm3 (1.0-4.8); Lymph % (Auto) 2.4 % (9.0-44.0); Mean Corpuscular HGB Conc 33.3 % (32.0-36.0); Mean Corpuscular Hemoglobin 27.7 pg (27.0-34.0); Mean Corpuscular Volume 83.3 fL (80.0-100.0); Mean Platelet Volume 6.5 fL (7.0-11.0); Mono # (Auto) 3.3 th/mm3 (0.0-0.9); Mono % (Auto) 4.2 % (0.0-8.0); Neut # (Auto) 72.1 th/mm3 (1.8-7.7); Neut % (Auto) 93.2 % (16.0-70.0); Platelet Count 574 th/mm3 (150-450); Red Blood Count 4.19 mil/mm3 (4.00-5.30); Red Cell Distribution Width 13.8 % (11.6-17.2); White Blood Count 77.4 th/mm3 (4.0-11.0)
[2018-05-02 06:17] LABS: Activated Partial Thrombo Time 25.4 sec (24.3-30.1); INR 1.1 Ratio; Prothrombin Time 11.4 sec (9.8-11.6)
[2018-05-02 06:32] LABS: Carbon Dioxide 25.8 meq/L (21.0-32.0); Potassium 3.7 meq/L (3.5-5.1)
[2018-05-02 06:46] LABS: Total Protein 6.3 g/dL (6.4-8.2)
[2018-05-02] MEDS: Sod Chloride 0.9% Inj 1,000 ML IV.CONT SCH ×4 (07:25→23:01)
[2018-05-02 08:24] LABS: Calcium 11.8 mg/dL (8.5-10.1)
[2018-05-02 08:50] LABS: Lymphocytes 6 % (9-44); Monocytes 4 % (0-8); Platelet Morphology Normal (Normal); Toxic Granulation 1+
[2018-05-02 08:51] LABS: Ovalocytes 1+; Toxic Vacuolation Present
--- NOTE | 2018-05-02 09:55 | P.PNONC ---
Subjective Interval history: Afebrile Patient obtunded Not arousable Patient tachypneic but overall seems comfortable Objective Vital Signs/Intake & Output: Vital Signs 05/01/18 12:00 05/01/18 16:00 05/01/18 20:00 Temperature 97.2 F L 97.3 F L 98.4 F Pulse Rate 105 H 125 H 107 H Respiratory Rate 22 21 20 Blood Pressure 167/85 H 141/82 H 157/84 H Pulse Oximetry 93 L 91 L 93 L 05/01/18 23:18 05/01/18 23:20 05/02/18 00:00 Temperature 97.3 F L Pulse Rate 105 H 107 H Respiratory Rate 22 17 Blood Pressure 109/59 L Pulse Oximetry 94 L 93 L 05/02/18 04:00 05/02/18 08:00 Temperature 98.8 F 97.9 F Pulse Rate 124 H 110 H Respiratory Rate 18 26 H Blood Pressure 175/79 H 176/79 H Pulse Oximetry 92 L 90 L Intake & Output 05/01/18 05/02/18 05/02/18 18:59 06:59 18:59 Intake Total 1450 / 1450 2100 / 2100 Output Total 450 / 450 Balance 1450 / 1450 1650 / 1650 Intake: IV 100 / 100 2100 / 2100 NS Inj 1,000 ML @ 150 mls/hr IV 1999 / 1999 .CONT .Q6H40M [facility] Rx#:[id number] Maxipime Inj 2,000 MG In NS Inj 100 / 100 100 / 100 100 ML @ 200 mls/hr IV.SIG Q12H [facility] Rx#:[id number] Oral 1350 / 1350 Output: Urine 450 / 450 Other: # Voids 5 Date of Last Bowel Movement 04/30/18 04/30/18 Result Diagrams: 05/02/18 05:38 05/02/18 05:38 Laboratory Results: Laboratory Results - last 24 hr 04/30/18 05/02/18 05/02/18 09:55 05:38 05:38 WBC 77.4 H RBC 4.19 Hgb 11.6 Hct 34.9 L MCV 83.3 MCH 27.7 MCHC 33.3 RDW 13.8 Plt Count 574 H MPV 6.5 L Prelim Diff (Auto) Slide review pending Neut % (Auto) 93.2 H Lymph % (Auto) 2.4 L Bonner % (Auto) 4.2 Eos % (Auto) 0.0 Baso % (Auto) 0.2 Neut # (Auto) 72.1 H Lymph # (Auto) 1.9 Bonner # (Auto) 3.3 H Eos # (Auto) 0.0 Baso # (Auto) 0.1 WBC Differential Manual diff final Seg Neuts % (Manual) 84 H Band Neuts % (Manual) 6 Lymphocytes % (Manual) 6 L Monocytes % (Manual) 4 Abs Neuts (Manual) 69.7 H Differential Comment . Toxic Granulation 1+ H Toxic Vacuolation Present H Platelet Estimate High H Platelet Morphology Normal Ovalocytes 1+ H PT INR APTT Sodium 134 L Potassium 3.7 Chloride 97 L Carbon Dioxide 25.8 Anion Gap 11 BUN 29 H Creatinine 1.17 H Estimated GFR 44 L Random Glucose 236 H Calcium 11.8 H* D Prot Corrected Calcium Total Protein 6.3 L Immunophenotypic Anal 05/02/18 05:38 WBC RBC Hgb Hct MCV MCH MCHC RDW Plt Count MPV Prelim Diff (Auto) Neut % (Auto) Lymph % (Auto) Bonner % (Auto) Eos % (Auto) Baso % (Auto) Neut # (Auto) Lymph # (Auto) Bonner # (Auto) Eos # (Auto) Baso # (Auto) WBC Differential Seg Neuts % (Manual) Band Neuts % (Manual) Lymphocytes % (Manual) Monocytes % (Manual) Abs Neuts (Manual) Differential Comment Toxic Granulation Toxic Vacuolation Platelet Estimate Platelet Morphology Ovalocytes PT 11.4 INR 1.1 APTT 25.4 Sodium Potassium Chloride Carbon Dioxide Anion Gap BUN Creatinine Estimated GFR Random Glucose Calcium Prot Corrected Calcium Total Protein Immunophenotypic Anal Culture Results: Microbiology 04/27/18 13:20 Aerobic Blood Culture - Preliminary Blood - Peripheral No growth in 4 days Anaerobic Blood Culture - Preliminary No growth in 4 days 04/27/18 13:10 Aerobic Blood Culture - Preliminary Blood - Peripheral No growth in 4 days Anaerobic Blood Culture - Preliminary No growth in 4 days 04/27/18 13:20 Urine Culture - Final Catheterized Urine No growth in 48 hours Imaging Studies: Impressions Abdomen/Pelvis CT 05/01/18 00:00 CONCLUSION: No evidence of acute abdominal process. Large right effusion Markedly enlarged fibroid uterus. Chest CT 05/01/18 00:00 CONCLUSION: 1. Complete collapse of the right lung secondary to a large pleural effusion occupying the entire right hemithorax. 2. There is mild pleural thickening also noted which is nonspecific though should be viewed with suspicion for possible metastatic disease. 3. Irregular left breast mass presumably the patient's known malignancy. 4. Pericardial effusion. 5. Adrenal nodule. Medications: Active Medications Generic Name Dose Route Start Last Admin Trade Name Freq PRN Reason Stop Dose Admin Acetaminophen 650 mg 04/27/18 16:19 04/30/18 09:41 Tylenol PO 650 mg Q4H PRN Administration PAIN 1-10 AND/OR FEVER >101F Albuterol 1 ampul 04/28/18 20:54 05/01/18 23:15 Duoneb Neb (Prn) NEB 1 ampul Q6HR NEB PRN Administration SHORTNESS OF BREATH Benzonatate 100 mg 04/28/18 21:02 04/29/18 05:21 Tessalon Perles PO 100 mg Q8H PRN Administration COUGH Bisacodyl 10 mg 04/27/18 15:25 04/29/18 16:21 Dulcolax Supp RECTAL 10 mg DAILY PRN Administration SEVERE CONSITIPATION Enoxaparin Sodium 40 mg 04/27/18 16:00 05/01/18 16:40 Lovenox Inj SQ 40 mg Q24H [facility] Administration Furosemide 40 mg 05/01/18 18:00 05/01/18 18:22 Lasix Inj IV.PUSH 40 mg BID@0900,1800 [facility] Administration Sodium Chloride 500 mls @ 0 mls/hr 04/27/18 13:00 04/27/18 14:14 Ns Inj IV.SIG Infused BOLUS [facility] Infusion Wide Open Sodium Chloride 500 mls @ 0 mls/hr 04/27/18 14:00 04/27/18 15:46 Ns Inj IV.SIG Infused BOLUS COOPER Infusion Wide Open Sodium Chloride 1,000 mls @ 150 mls/hr 04/27/18 15:30 05/02/18 07:25 Ns Inj IV.CONT 150 mls/hr .Q6H40M [facility] Administration Azithromycin 500 mg/ Sodium 250 mls @ 250 mls/hr 04/28/18 15:00 05/01/18 16: 40 Chloride IV.SIG 250 mls/hr Q24H [facility] Administration Cefepime HCl 2,000 mg/ Sodium 100 mls @ 200 mls/hr 04/30/18 21:00 05/01/18 22 :40 Chloride IV.SIG Infused Q12H [facility] Infusion Lorazepam 0.5 mg 05/01/18 16:00 05/02/18 02:10 Ativan Inj IV.PUSH 0.5 mg Q4H PRN Administration ANXIETY Metoprolol Succinate 12.5 mg 05/01/18 18:00 05/01/18 18:36 Toprol Xl PO 12.5 mg DAILY [facility] Administration Propranolol HCl 10 mg 04/30/18 15:10 05/02/18 04:00 Inderal PO 10 mg Q8HR PRN Administration RAPID HEART RATE Senna/Docusate Sodium 1 tab 04/27/18 21:00 05/01/18 22:11 So-Colace PO 1 tab BID [facility] Administration Sodium Chloride 2 ml 04/27/18 12:06 04/29/18 22:11 Ns Flush IV.FLUSH 2 ml PRN PRN Administration FLUSH AFTER USING IV ACCESS Objective Remarks: GENERAL: Elderly female resting in bed. She is obtunded. SKIN: Warm and dry. HEAD: Normocephalic. EYES: No scleral icterus. No injection or drainage. NECK: Supple, trachea midline. CARDIOVASCULAR: + S1/S2. Tachycardia. RESPIRATORY: Clear anteriorly on the left. No lung sounds on the right. On 5 L nasal cannula. GASTROINTESTINAL: Abdomen soft, non-tender, nondistended. EXTREMITIES: No cyanosis MUSCULOSKELETAL: Generalized weakness NEUROLOGICAL: Obtunded and not arousable. +Babinski reflex Assessment/Plan - Plan Ms. Alegre is an 82-year-old female who originally presented to the hospital with complaints of generalized weakness and increasing shortness of breath. She has been diagnosed with sepsis, hypercalcemia, mild anemia and dehydration. She has a history of breast cancer and is under the care of Dr. Sharma. After reviewing Dr. Sharma's records, it appears the patient has a known history of bilateral ER positive breast cancer, originally diagnosed in 2009 she has refused surgical intervention and it has appears to have been non- compliant with many of the oral medication regimens. The most recent medication was toremifene (rx'd early February, pt began mid-March) she stopped on 04/17/18 due to side effects. Plan: 1. The patient is a DNR and appears to be actively dying. Palliative care is following. I have discussed with Dr. Burton and we are awaiting the patient's sons to arrive for possible transition to hospice. 2. Flow cytometry negative for neoplastic process 3. Hypercalcemia improved today. 4. Continue supportive care. - Attending Statement The exam, history, and the medical decision-making described in the above note were completed with the assistance of the mid-level provider. I reviewed and agree with the findings presented. I attest that I had a [id number] encounter with the patient on the same day, and personally performed and documented my assessment and findings in the medical record. Patient's mental status continued to decline despite calcium level trended back down to 11.8. White blood cell count continued to trend up to above 70,000. Flow cytometry did not show any abnormal immunophenotype. The leukocytosis appeared to be reactive. Patient however is not responding to antibiotics. Her prognosis is very poor. Patient did not want aggressive treatment when she was able to make her own decision. Await family's decision regarding hospice support.
[2018-05-02] MEDS: Acetaminophen 325 MG Tablet PO PRN (11:09)
[2018-05-02] MEDS: Senna/Docusate Sodium 8.6/50 MG Tablet PO SCH ×2 (11:34→23:01)
--- NOTE | 2018-05-02 11:58 | P.PNFP ---
Subjective Interval history: No acute events overnight. Patient's mentation continues to deteriorate. Barely arousable during the interview today. She occasionally moans but otherwise cannot answer questions. Patient continues to be tachycardic occasionally hypertensive to the 170s over 70s. Now on 5 L of nasal cannula <Fransisco Jones B - 05/02/18 11:58> Results - Labs Result diagrams: 05/02/18 05:38 05/02/18 05:38 <Ronel Burton - 05/02/18 15:01> Abnormal lab results 05/02/18 05/02/18 Range/Units 05:38 05:38 WBC 77.4 H (4.0-11.0) th/mm3 Hct 34.9 L (35.0-46.0) % Plt Count 574 H (150-450) th/mm3 MPV 6.5 L (7.0-11.0) fL Neut % (Auto) 93.2 H (16.0-70.0) % Lymph % (Auto) 2.4 L (9.0-44.0) % Neut # (Auto) 72.1 H (1.8-7.7) th/mm3 [place] # (Auto) 3.3 H (0.0-0.9) th/mm3 Seg Neuts % (Manual) 84 H (16-70) % Lymphocytes % (Manual) 6 L (9-44) % Abs Neuts (Manual) 69.7 H (1.8-7.7) th/mm3 Toxic Granulation 1+ H (None) Toxic Vacuolation Present H (None) Platelet Estimate High H (Normal) Ovalocytes 1+ H (None) Sodium 134 L (136-145) meq/L Chloride 97 L (98-107) meq/L BUN 29 H (7-18) mg/dL Creatinine 1.17 H (0.50-1.00) mg/dL Estimated GFR 44 L (>89) mL/min Random Glucose 236 H (74-106) mg/dL Calcium 11.8 H* D (8.5-10.1) mg/dL Total Protein 6.3 L (6.4-8.2) g/dL Short CBC 05/02/18 Range/Units 05:38 WBC 77.4 H (4.0-11.0) th/mm3 Hgb 11.6 (11.6-15.3) gm/dL Hct 34.9 L (35.0-46.0) % Plt Count 574 H (150-450) th/mm3 BMP 05/02/18 05:38 Sodium 134 L Potassium 3.7 Chloride 97 L Carbon Dioxide 25.8 BUN 29 H Creatinine 1.17 H Calcium 11.8 H* D <Ronel Burton - 05/02/18 15:01> Abnormal lab results 05/02/18 05/02/18 Range/Units 05:38 05:38 WBC 77.4 H (4.0-11.0) th/mm3 Hct 34.9 L (35.0-46.0) % Plt Count 574 H (150-450) th/mm3 MPV 6.5 L (7.0-11.0) fL Neut % (Auto) 93.2 H (16.0-70.0) % Lymph % (Auto) 2.4 L (9.0-44.0) % Neut # (Auto) 72.1 H (1.8-7.7) th/mm3 [place] # (Auto) 3.3 H (0.0-0.9) th/mm3 Seg Neuts % (Manual) 84 H (16-70) % Lymphocytes % (Manual) 6 L (9-44) % Abs Neuts (Manual) 69.7 H (1.8-7.7) th/mm3 Toxic Granulation 1+ H (None) Toxic Vacuolation Present H (None) Platelet Estimate High H (Normal) Ovalocytes 1+ H (None) Sodium 134 L (136-145) meq/L Chloride 97 L (98-107) meq/L BUN 29 H (7-18) mg/dL Creatinine 1.17 H (0.50-1.00) mg/dL Estimated GFR 44 L (>89) mL/min Random Glucose 236 H (74-106) mg/dL Calcium 11.8 H* D (8.5-10.1) mg/dL Total Protein 6.3 L (6.4-8.2) g/dL Short CBC 05/02/18 Range/Units 05:38 WBC 77.4 H (4.0-11.0) th/mm3 Hgb 11.6 (11.6-15.3) gm/dL Hct 34.9 L (35.0-46.0) % Plt Count 574 H (150-450) th/mm3 BMP 05/02/18 05:38 Sodium 134 L Potassium 3.7 Chloride 97 L Carbon Dioxide 25.8 BUN 29 H Creatinine 1.17 H Calcium 11.8 H* D <Fransisco Jones - 05/02/18 11:58> - Imaging Impressions Abdomen/Pelvis CT 05/01/18 00:00 CONCLUSION: No evidence of acute abdominal process. Large right effusion Markedly enlarged fibroid uterus. Chest CT 05/01/18 00:00 CONCLUSION: 1. Complete collapse of the right lung secondary to a large pleural effusion occupying the entire right hemithorax. 2. There is mild pleural thickening also noted which is nonspecific though should be viewed with suspicion for possible metastatic disease. 3. Irregular left breast mass presumably the patient's known malignancy. 4. Pericardial effusion. 5. Adrenal nodule. <Ronel Burton - 05/02/18 15:01> Impressions Abdomen/Pelvis CT 05/01/18 00:00 CONCLUSION: No evidence of acute abdominal process. Large right effusion Markedly enlarged fibroid uterus. Chest CT 05/01/18 00:00 CONCLUSION: 1. Complete collapse of the right lung secondary to a large pleural effusion occupying the entire right hemithorax. 2. There is mild pleural thickening also noted which is nonspecific though should be viewed with suspicion for possible metastatic disease. 3. Irregular left breast mass presumably the patient's known malignancy. 4. Pericardial effusion. 5. Adrenal nodule. <Fransisco Jones - 05/02/18 11:58> Physical Exam Vital signs: Vital Signs 05/01/18 16:00 05/01/18 20:00 05/01/18 23:18 Temperature 97.3 F L 98.4 F Pulse Rate 125 H 107 H 105 H Respiratory Rate 21 20 22 Blood Pressure 141/82 H 157/84 H Pulse Oximetry 91 L 93 L 05/01/18 23:20 05/02/18 00:00 05/02/18 04:00 Temperature 97.3 F L 98.8 F Pulse Rate 107 H 124 H Respiratory Rate 17 18 Blood Pressure 109/59 L 175/79 H Pulse Oximetry 94 L 93 L 92 L 05/02/18 08:00 05/02/18 09:00 05/02/18 11:57 Temperature 97.9 F Pulse Rate 110 H 110 H 120 H Respiratory Rate 14 23 Blood Pressure 176/79 H Pulse Oximetry 90 L 91 L 05/02/18 12:00 Temperature 97.7 F Pulse Rate 107 H Respiratory Rate 24 Blood Pressure 147/91 H Pulse Oximetry 90 L Intake & Output 05/01/18 05/02/18 05/02/18 18:59 06:59 18:59 Intake Total 1700 / 1700 2100 / 2100 1100 / 1100 Output Total 450 / 450 Balance 1700 / 1700 1650 / 1650 1100 / 1100 Intake: IV 350 / 350 2100 / 2100 1100 / 1100 NS Inj 1,000 ML @ 150 mls/hr IV 2000 / 2000 1000 / 1000 .CONT .Q6H40M [facility] Rx#:[id number] Azithromycin Inj 500 MG In NS 250 / 250 Inj 250 ML @ 250 mls/hr IV.SIG Q24H [facility] Rx#:[id number] Maxipime Inj 2,000 MG In NS Inj 100 / 100 100 / 100 100 / 100 100 ML @ 200 mls/hr IV.SIG Q12H [facility] Rx#:[id number] Oral 1350 / 1350 Output: Urine 450 / 450 Other: # Voids 5 Date of Last Bowel Movement 04/30/18 04/30/18 04/30/18 <Ronel Burton M - 05/02/18 15:01> Vital Signs 05/01/18 12:00 05/01/18 16:00 05/01/18 20:00 Temperature 97.2 F L 97.3 F L 98.4 F Pulse Rate 105 H 125 H 107 H Respiratory Rate 22 21 20 Blood Pressure 167/85 H 141/82 H 157/84 H Pulse Oximetry 93 L 91 L 93 L 05/01/18 23:18 05/01/18 23:20 05/02/18 00:00 Temperature 97.3 F L Pulse Rate 105 H 107 H Respiratory Rate 22 17 Blood Pressure 109/59 L Pulse Oximetry 94 L 93 L 05/02/18 04:00 05/02/18 08:00 Temperature 98.8 F 97.9 F Pulse Rate 124 H 110 H Respiratory Rate 18 26 H Blood Pressure 175/79 H 176/79 H Pulse Oximetry 92 L 90 L Intake & Output 05/01/18 05/02/18 05/02/18 18:59 06:59 18:59 Intake Total 1700 / 1700 2100 / 2100 1100 / 1100 Output Total 450 / 450 Balance 1700 / 1700 1650 / 1650 1100 / 1100 Intake: IV 350 / 350 2100 / 2100 1100 / 1100 NS Inj 1,000 ML @ 150 mls/hr IV 2000 / 2000 1000 / 1000 .CONT .Q6H40M [facility] Rx#:[id number] Azithromycin Inj 500 MG In NS 250 / 250 Inj 250 ML @ 250 mls/hr IV.SIG Q24H [facility] Rx#:[id number] Maxipime Inj 2,000 MG In NS Inj 100 / 100 100 / 100 100 / 100 100 ML @ 200 mls/hr IV.SIG Q12H [facility] Rx#:[id number] Oral 1350 / 1350 Output: Urine 450 / 450 Other: # Voids 5 Date of Last Bowel Movement 04/30/18 04/30/18 <Fransisco Jones - 05/02/18 11:58> Narrative: GENERAL: Sweating and appears chronically ill. Nasal cannula in place. More obtunded than previous exam SKIN: Warm and dry. HEAD: Atraumatic. Normocephalic. EYES: Pupils equal and round. No scleral icterus. No injection or drainage. ENT: No nasal bleeding or discharge. Mucous membranes pink and moist. NECK: Trachea midline. No JVD. CARDIOVASCULAR: Tachycardic to the 100s with a regular rhythm RESPIRATORY: No accessory muscle use. Diminished breath sounds in the right lung velazquez, dullness to percussion over the right lung field. No rales appreciated GASTROINTESTINAL: Abdomen soft, mildly distended. Hypoactive bowel sounds. Hepatic and splenic margins not palpable. Abdominal breathing noted. MUSCULOSKELETAL: Extremities without clubbing, cyanosis, or edema. No obvious deformities. NEUROLOGICAL: Awake and alert. No obvious cranial nerve deficits. Motor grossly within normal limits. PSYCHIATRIC: Patient no longer answering questions appropriately. Unable to assess orientation. <Fransisco Jones - 05/02/18 11:58> Assessment and Plan - Assessment (1) Bilateral breast cancer Code(s): C50.911 - Malignant neoplasm of unspecified site of right female breast ; C50.912 - Malignant neoplasm of unspecified site of left female breast Status: Acute (2) Shortness of breath Code(s): R06.02 - Shortness of breath Status: Acute (3) Hypercalcemia Code(s): E83.52 - Hypercalcemia Status: Acute (4) Sepsis Code(s): A41.9 - Sepsis, unspecified organism Status: Acute (5) Weakness Code(s): R53.1 - Weakness Status: Acute (6) Constipation Code(s): K59.00 - Constipation, unspecified Status: Acute (7) Nutrition, metabolism, and development symptoms Code(s): R63.8 - Other symptoms and signs concerning food and fluid intake Status: Acute <Ronel Burton - 05/02/18 15:01> (1) Bilateral breast cancer Code(s): C50.911 - Malignant neoplasm of unspecified site of right female breast ; C50.912 - Malignant neoplasm of unspecified site of left female breast Status: Acute Plan: Not actively being treated. Followed by Dr. Sharma -Oncology consulted: labs PTHrp Jak2 flow cytology BCR -Bone scan 04/29: Minimal asymmetrical uptake in R talus. Unusual location metastatic disease. -CT head on 04/30 showed no acute findings. -In the setting of hypercalcemia, significant leukocytosis, CT abdomen and chest were ordered to assess for malignancy -CT chest showed complete collapse of the right lung secondary to large pleural effusion occupying the entire right hemithorax. Mild pleural thickening, irregular left breast mass, pericardial effusion -CT abdomen showed no evidence of acute abdominal process -Palliative care consulted: Spoke with 4 children who want to be involved in the decision-making process. Patient has no advance directive so according to state law her adult children if agree serve as health care proxys. -Patient's prognosis is extremely poor. Will attempt to discuss hospice with patient's children today. (2) Shortness of breath Code(s): R06.02 - Shortness of breath Status: Acute Plan: Continued shortness of breath since discharge earlier this week for a right pleural effusion status post thoracentesis. DDX continued pleural effusion, pneumonia, malignancy.Chest X-ray: Right basilar pleural-parenchymal density as seen on previous study. Nodule left lower lobe. -O2 as needed -IV antibiotics cefepime 2 g q 8hrs for 7 days and azithromycin 500 mg for at least 3 days (started 04/27) -Antibiotics discontinued on 05/02, patient's deterioration with significant rise in leukocytosis suspected to be secondary to malignancy as opposed to an infectious process. -DuoNeb's as needed -40 IV lasix twice daily for symptomatic relief (3) Hypercalcemia Code(s): E83.52 - Hypercalcemia Status: Acute Plan: Calcium at admission 12.4 ended up to 14.9 on 04/30. Has down trended to 11.8 on 05/02. DDX malignancy, dehydration. -NS 150 mL/hr -one-time dose of zoledronic acid IV on 04/29 -Lasix 40 mg IV twice daily -PTH intact low -PTHrp pending (4) Sepsis Code(s): A41.9 - Sepsis, unspecified organism Status: Acute Plan: Admission WBC 38.1 and tachycardic. Elevated WBC at continues to rise. ddx pneumonia or malignancy -UA negative nitrate leuk esterase few WBC -lactic acid 2.0 -Chest X-ray: Right basilar pleural-parenchymal density as seen on previous study. Nodule left lower lobe. -daily CBC and BMP -Fluids 150 mL/hr -BCX with no growth to date -However while she technically meets SIRS criteria, the etiology of her leukocytosis and tachycardia are likely secondary to malignancy. -Discontinuing antibiotics on 05/02. (5) Weakness Code(s): R53.1 - Weakness Status: Acute Plan: Most likely due to hypercalcemia, dehydration, and malignancy. -See workup for hypercalcemia -PT OT consult: rehab recommendations (6) Constipation Code(s): K59.00 - Constipation, unspecified Status: Acute Plan: No bowel movement for 5-6 days usually goes every other day. DDx hypercalcemia, medication effect of oxycodone, malignancy, ileus -Abdominal x-ray: No evidence of free intraperitoneal gas.The visualized bowel loops are unremarkable. -PRN milk of mag; salbador-colace, ducolax, (7) Nutrition, metabolism, and development symptoms Code(s): R63.8 - Other symptoms and signs concerning food and fluid intake Status: Acute Plan: Diet: Regular, as patient is now more of tendon may need to consider other means of nutrition pending conversation with patient's children. Prophylaxis: Lovenox Electrolytes: Replete as needed <Fransisco Jones - 05/02/18 11:38> - Assessment and Plan 82 year old female PMH bilateral breast cancer presented with continued weakness and shortness of breath. Earlier this week discharged after a right thoracentesis for R pleural effusion. Was given oxycodone on discharged. Constipation for 5-6 days. On admission septic with WBC 38.1 and tachycardia. Hypercalcemic 12.4. Was given 1 L NS bolus and started on cefepime and azithromycin for possible pneumonia. Put on 2 L NC. Abdominal x-ray: No evidence of free intraperitoneal gas.The visualized bowel loops are unremarkable. Chest X-ray: Right basilar pleural-parenchymal density as seen on previous study. Nodule left lower lobe. UA negative nitrates, leuk esterase, and few WBC. Blood cultures with no growth to date. Oncology, palliative care consulted. Calcium justice to 13.3 on 04/29. Bone scan 04/29: Minimal asymmetrical uptake in R talus. Unusual location metastatic disease. Give one-time dose of zoledronic acid IV and [address] head showed no acute findings. Palliative care consulted: Patient has no advance directive so according to state law her adult children if agree serve as health care proxys. Palliative has had discussions with all 4 of her sons who desire to be a part of her medical decision making and to agree to make her DNR. Will attempt to have further conversations regarding possible hospice as patient continues to deteriorate. Disposition: Prognosis is extremely poor Discharge: Potentially on hospice Discussed with Dr. Burton <Fransisco Jones - 05/02/18 11:58> - Attending Attestation The exam, history, and the medical decision-making described in the above note were completed with the assistance of the resident physician. I reviewed and agree with the findings presented. I attest that I had a [id number] encounter with the patient on the same day, and personally performed and documented my assessment and findings in the medical record. Tried to call her son Wale and a message was left for him but was unable to reach him. Spoke to his brother who was driving down from [place] and explained how extremely ill his mother was. She has continued to deteriorate her white count is up to 70 and she despite a lower calcium is not more alert or showing any signs of improvement at all. She has pleural effusion before she came in the hospital that was drained and it has since returned as well as a pericardial effusion. She has no capacity to make decisions and an ultrasound-guided drainage was ordered however she cannot consent and ultrasound called me and stated that they could not do this procedure particularly evidently there needs to be multiple sons agreeing to this as well as the patient is too ill to stay in a seated in upright position. When I have spoken to either 1 of the 2 sons that I spoke to they understood how sick she was and they agreed that her general philosophy when she had breast cancer and had other problems is she did not want to be highly interventional she had never wanted surgery she had not wanted radiation she had not wanted any sort of strong IV chemo so following that sort of attitude she probably would not want to have a chest tube at this point and it seems futile to be in output and a chest tube when she is not going to be on a ventilator. Her sons that are coming from [place] will be here tomorrow and want to discuss hospice at that time. It was explained that there needs to be a agreement between the sons since she does not have a particular proxy to make decisions for her <Ronel Burton M - 05/02/18 15:01> <Fransisco Jones B - Last Filed: 05/02/18 11:38> (4) Sepsis Qualifiers: Sepsis type: sepsis due to unspecified organism Qualified Code(s): A41.9 - Sepsis, unspecified organism <Ronel Burton M - Last Filed: 05/02/18 15:01> (4) Sepsis Qualifiers: Sepsis type: sepsis due to unspecified organism Qualified Code(s): A41.9 - Sepsis, unspecified organism <Fransisco Jones B - Last Filed: 05/02/18 11:38> (4) Sepsis Qualifiers: Sepsis type: sepsis due to unspecified organism Qualified Code(s): A41.9 - Sepsis, unspecified organism <Ronel Burton M - Last Filed: 05/02/18 15:01> (4) Sepsis Qualifiers: Sepsis type: sepsis due to unspecified organism Qualified Code(s): A41.9 - Sepsis, unspecified organism
[2018-05-02] MEDS: Enoxaparin Inj 40 MG/0.4 ML Syringe SQ SCH (16:00)
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
[2018-05-03] MEDS: Sod Chloride 0.9% Inj 1,000 ML IV.CONT SCH (05:53)
--- NOTE | 2018-05-03 07:56 | P.PNONC ---
Subjective Interval history: Patient is obtunded. She has agonal breathing. She is not responding to stimulation. Objective Vital Signs/Intake & Output: Vital Signs 05/02/18 08:00 05/02/18 09:00 05/02/18 11:57 Temperature 97.9 F Pulse Rate 110 H 110 H 120 H Respiratory Rate 14 23 Blood Pressure 176/79 H Pulse Oximetry 90 L 91 L 05/02/18 12:00 05/02/18 16:00 05/02/18 16:11 Temperature 97.7 F 98.0 F Pulse Rate 107 H 99 H Respiratory Rate 24 21 16 Blood Pressure 147/91 H 135/67 Pulse Oximetry 90 L 93 L 05/02/18 20:00 05/03/18 00:00 05/03/18 04:00 Temperature 98.1 F 98.1 F 98.2 F Pulse Rate 110 H 103 H 112 H Respiratory Rate 17 17 18 Blood Pressure 144/62 H 126/79 132/68 Pulse Oximetry 93 L 92 L 91 L Intake & Output 05/02/18 05/03/18 05/03/18 18:59 06:59 18:59 Intake Total 2600 / 2600 1999 Output Total 250 / 250 600 / 600 Balance 2350 / 2350 1400 / 1400 Intake: IV 2100 / 2100 1999 NS Inj 1,000 ML @ 150 mls/hr IV 1999 .CONT .Q6H40M [facility] Rx#:[id number] Maxipime Inj 2,000 MG In NS Inj 100 / 100 100 ML @ 200 mls/hr IV.SIG Q12H [facility] Rx#:[id number] Oral 500 / 500 Output: Urine 250 / 250 600 / 600 Other: # Incontinent Voids 2 Date of Last Bowel Movement 04/30/18 Result Diagrams: 05/02/18 05:38 05/02/18 05:38 Laboratory Results: Laboratory Results - last 24 hr 04/29/18 05/02/18 05/02/18 07:06 05:38 05:38 WBC Differential Manual diff final Seg Neuts % (Manual) 84 H Band Neuts % (Manual) 6 Lymphocytes % (Manual) 6 L Monocytes % (Manual) 4 Abs Neuts (Manual) 69.7 H Toxic Granulation 1+ H Toxic Vacuolation Present H Platelet Estimate High H Platelet Morphology Normal Ovalocytes 1+ H Calcium 11.8 H* D Prot Corrected Calcium PTH Related Peptide 8.9 H Culture Results: Microbiology 04/27/18 13:20 Aerobic Blood Culture - Final Blood - Peripheral No growth in 5 days Anaerobic Blood Culture - Final No growth in 5 days 04/27/18 13:10 Aerobic Blood Culture - Final Blood - Peripheral No growth in 5 days Anaerobic Blood Culture - Final No growth in 5 days Medications: Active Medications Generic Name Dose Route Start Last Admin Trade Name Freq PRN Reason Stop Dose Admin Acetaminophen 650 mg 04/27/18 16:19 05/02/18 11:09 Tylenol PO 650 mg Q4H PRN Administration PAIN 1-10 AND/OR FEVER >101F Albuterol 1 ampul 04/28/18 20:54 05/02/18 11:56 Duoneb Neb (Prn) NEB 1 ampul Q6HR NEB PRN Administration SHORTNESS OF BREATH Benzonatate 100 mg 04/28/18 21:02 04/29/18 05:21 Tessalon Perles PO 100 mg Q8H PRN Administration COUGH Bisacodyl 10 mg 04/27/18 15:25 04/29/18 16:21 Dulcolax Supp RECTAL 10 mg DAILY PRN Administration SEVERE CONSITIPATION Enoxaparin Sodium 40 mg 04/27/18 16:00 05/02/18 16:00 Lovenox Inj SQ 40 mg Q24H [facility] Administration Furosemide 40 mg 05/01/18 18:00 05/02/18 19:35 Lasix Inj IV.PUSH 40 mg BID@0900,1800 [facility] Administration Sodium Chloride 500 mls @ 0 mls/hr 04/27/18 13:00 04/27/18 14:14 Ns Inj IV.SIG Infused BOLUS [facility] Infusion Wide Open Sodium Chloride 500 mls @ 0 mls/hr 04/27/18 14:00 04/27/18 15:46 Ns Inj IV.SIG Infused BOLUS COOPER Infusion Wide Open Sodium Chloride 1,000 mls @ 150 mls/hr 04/27/18 15:30 05/03/18 05:53 Ns Inj IV.CONT Infused .Q6H40M [facility] Infusion Lorazepam 0.5 mg 05/01/18 16:00 05/03/18 05:55 Ativan Inj IV.PUSH 0.5 mg Q4H PRN Administration ANXIETY Metoprolol Succinate 12.5 mg 05/01/18 18:00 05/02/18 11:34 Toprol Xl PO 12.5 mg DAILY [facility] Administration Propranolol HCl 10 mg 04/30/18 15:10 05/02/18 04:00 Inderal PO 10 mg Q8HR PRN Administration RAPID HEART RATE Senna/Docusate Sodium 1 tab 04/27/18 21:00 05/02/18 23:01 So-Colace PO 1 tab BID [facility] Administration Sodium Chloride 2 ml 04/27/18 12:06 04/29/18 22:11 Ns Flush IV.FLUSH 2 ml PRN PRN Administration FLUSH AFTER USING IV ACCESS Objective Remarks: GENERAL: Patient is obtunded. SKIN: Warm and dry. HEAD: Normocephalic. EYES: No scleral icterus. No injection or drainage. NECK: Supple, trachea midline. No JVD or lymphadenopathy. LYMPHATIC: No adenopathy. CARDIOVASCULAR: Regular rate and rhythm without murmurs. RESPIRATORY: Breath sounds decreased in right lung. She has agonal breathing. GASTROINTESTINAL: Abdomen soft, non-tender, nondistended. EXTREMITIES: No cyanosis, or edema. NEUROLOGICAL: She is obtunded and not responding to stimulation. Assessment/Plan - Plan Ms. Alegre is an 82-year-old female who originally presented to the hospital with complaints of generalized weakness and increasing shortness of breath. She has been diagnosed with sepsis, hypercalcemia, mild anemia and dehydration. She has a history of breast cancer and is under the care of Dr. Sharma. After reviewing Dr. Sharma's records, it appears the patient has a known history of bilateral ER positive breast cancer, originally diagnosed in 2009 she has refused surgical intervention and it has appears to have been non- compliant with many of the oral medication regimens. The most recent medication was toremifene (rx'd early February, pt began mid-March) she stopped on 04/17/18 due to side effects. 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 She has persistent leukocytosis but flow cytometry was negative for leukemia. Plan: 1. The patient is a DNR and appears to be actively dying. Palliative care is following. Awaiting family's decision to transition to hospice.
--- NOTE | 2018-05-03 09:02 | P.PNFP ---
Subjective Interval history: Unfortunately this lady is extremely ill and is actively dying. Have had conversations with her one son Wale as well as another son who was accompanied by his brother in the car driving down from [place] yesterday.Explained to both of them how Mrs. Alegre has an overwhelming illness.They agreed to have her be a DNR which she is. However they wanted to meet prior to making a decision about hospice. Palliative and I agree that she may not survive transport to the hospice care center let alone a family meeting by the time it is arranged. She is being treated for comfort care at this point as there is no way to effect any cure her. Agree with palliative care In increasing her morphine and Ativan. Her cancer has caused pericardial and pleural effusions she could not tolerate having anything drained she is so extremely ill. Results - Labs Result diagrams: 05/02/18 05:38 05/02/18 05:38 Abnormal lab results 04/29/18 Range/Units 07:06 PTH Related Peptide 8.9 H (<2.0) pmol/L Physical Exam Vital signs: Vital Signs 05/02/18 11:57 05/02/18 12:00 05/02/18 16:00 Temperature 97.7 F 98.0 F Pulse Rate 120 H 107 H 99 H Respiratory Rate 23 24 21 Blood Pressure 147/91 H 135/67 Pulse Oximetry 91 L 90 L 93 L 05/02/18 16:11 05/02/18 20:00 05/03/18 00:00 Temperature 98.1 F 98.1 F Pulse Rate 110 H 103 H Respiratory Rate 16 18 17 Blood Pressure 144/62 H 126/79 Pulse Oximetry 93 L 92 L 05/03/18 04:00 Temperature 98.2 F Pulse Rate 112 H Respiratory Rate 18 Blood Pressure 132/68 Pulse Oximetry 91 L Intake & Output 05/02/18 05/03/18 05/03/18 18:59 06:59 18:59 Intake Total 2600 / 2600 1999 Output Total 250 / 250 600 / 600 Balance 2350 / 2350 1400 / 1400 Intake: IV 2099 / 2099 NS Inj 1,000 ML @ 150 mls/hr IV 1999 .CONT .Q6H40M [facility] Rx#:[id number] Maxipime Inj 2,000 MG In NS Inj 100 / 100 100 ML @ 200 mls/hr IV.SIG Q12H [facility] Rx#:[id number] Oral 500 / 500 Output: Urine 250 / 250 600 / 600 Other: # Incontinent Voids 2 Date of Last Bowel Movement 04/30/18 04/30/18 Narrative: GENERAL: Sweating and appears chronically ill. Nasal cannula in place. obtunded examining a change in her breathing pattern she is not quite agonal but is sometimes gasping for breath. However she is not alert at all. She is not actively moaning which she had done earlier. SKIN: Warm and dry. HEAD: Atraumatic. Normocephalic. EYES: Eyes are closed at this point ENT: No nasal bleeding or discharge. NECK: Trachea midline. No JVD. CARDIOVASCULAR: Tachycardic to the 100s with an occasional irregular rhythm RESPIRATORY: She is belly breathing at times diminished breath sounds in the right lung velazquez, dullness to percussion over the right lung field. No rales appreciated GASTROINTESTINAL: Abdomen soft, mildly distended. Hypoactive bowel sounds. Hepatic and splenic margins not palpable. Abdominal breathing noted. MUSCULOSKELETAL: Extremities without clubbing, cyanosis, or edema. No obvious deformities. Some edema in her lower extremities NEUROLOGICAL: Obtunded. No obvious cranial nerve deficits. Not able to assess motor or sensory due to her mental condition PSYCHIATRIC: Patient no longer answering questions. Assessment and Plan - Assessment (1) Bilateral breast cancer Code(s): C50.911 - Malignant neoplasm of unspecified site of right female breast ; C50.912 - Malignant neoplasm of unspecified site of left female breast Status: Acute Plan: Not actively being treated. Followed by Dr. Sharma -Oncology consulted: labs PTHrp Jak2 flow cytology BCR to check up for a blood tumor -Bone scan 04/29: Minimal asymmetrical uptake in R talus. Unusual location metastatic disease. -CT head on 04/30 showed no acute findings. -In the setting of hypercalcemia, significant leukocytosis, CT abdomen and chest were ordered to assess for malignancy -CT chest showed complete collapse of the right lung secondary to large pleural effusion occupying the entire right hemithorax. Mild pleural thickening, irregular left breast mass, pericardial effusion -CT abdomen showed no evidence of acute abdominal process -Palliative care consulted: Spoke with 4 children who want to be involved in the decision-making process. Patient has no advance directive so according to state law her adult children if agree serve as health care proxys. -Patient's prognosis is extremely poor. Will attempt to discuss hospice with patient's children today. Have called her difference on left a message yesterday unsure if he will be coming into town I do not believe that this woman will live very long and doubt that there will be the time to have a family meeting prior to her demise. Her breast cancer is definitely metastatic contributing to her overall serious illness however I wonder her and we will not know until we get all the blood tests back some time from now whether she some new cancer like a leukemia or a blast phase of some cancer. Her white count was 77 yesterday which is way too high to be from sepsis. (2) Shortness of breath Code(s): R06.02 - Shortness of breath Status: Acute Plan: Continued shortness of breath since discharge earlier this week for a right pleural effusion status post thoracentesis. DDX continued pleural effusion, pneumonia, malignancy.Chest X-ray: Right basilar pleural-parenchymal density as seen on previous study. Nodule left lower lobe. -O2 as needed -IV antibiotics cefepime 2 g q 8hrs for 7 days and azithromycin 500 mg for at least 3 days (started 04/27) -Antibiotics discontinued on 05/02, patient's deterioration with significant rise in leukocytosis suspected to be secondary to malignancy as opposed to an infectious process. -DuoNeb's as needed -40 IV lasix twice daily for symptomatic relief Based on discussions with son as well as this lady's general philosophy of never wanting surgery or aggressive chemo or radiation for her breast cancer do not believe that she would want thoracentesis and as well as possible pericardial drainage and other things. Her sons would need to consent to different procedures and they were not able to get a meeting of the [facility] over the past few days considering there are 4 of them and a majority needs to agree on any decision. She is comfort care at this point with no interventions planned (3) Hypercalcemia Code(s): E83.52 - Hypercalcemia Status: Acute Plan: Calcium at admission 12.4 ended up to 14.9 on 04/30. Has down trended to 11.8 on 05/02. DDX malignancy, dehydration. -NS 150 mL/hr stopped today due to her serious declining and starting edema -one-time dose of zoledronic acid IV on 04/29 -Lasix 40 mg IV twice daily -PTH intact low -PTHrp pending (4) Weakness Code(s): R53.1 - Weakness Status: Acute Plan: Most likely due to hypercalcemia, dehydration, and malignancy. -See workup for hypercalcemia -PT OT consult: rehab recommendations (5) Nutrition, metabolism, and development symptoms Code(s): R63.8 - Other symptoms and signs concerning food and fluid intake Status: Acute Plan: Diet: Unable to eat Prophylaxis: Lovenox can consider stopping Electrolytes: Replete as needed will hold on poking her with needles and doing blood draws at this time - Assessment and Plan 82 year old female PMH bilateral breast cancer presented with continued weakness and shortness of breath. Earlier this week discharged after a right thoracentesis for R pleural effusion. Was given oxycodone on discharged. Constipation for 5-6 days. On admission septic with WBC 38.1 and tachycardia. Hypercalcemic 12.4. Was given 1 L NS bolus and started on cefepime and azithromycin for possible pneumonia. Put on 2 L NC. Abdominal x-ray: No evidence of free intraperitoneal gas.The visualized bowel loops are unremarkable. Chest X-ray: Right basilar pleural-parenchymal density as seen on previous study. Nodule left lower lobe. UA negative nitrates, leuk esterase, and few WBC. Blood cultures with no growth to date. Oncology, palliative care consulted. Calcium justice to 13.3 on 04/29. Bone scan 04/29: Minimal asymmetrical uptake in R talus. Unusual location metastatic disease. Give one-time dose of zoledronic acid IV and [address] head showed no acute findings. Palliative care consulted: Patient has no advance directive so according to state law her adult children if agree serve as health care proxys. Palliative has had discussions with all 4 of her sons who desire to be a part of her medical decision making and to agree to make her DNR. Will attempt to have further conversations regarding possible hospice as patient continues to deteriorate. Disposition: Prognosis is extremely poor Discharge: Potentially on hospice Discussed with Dr. Burton
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
[2018-05-03] MEDS ORDERED: Morphine Sulfate Inj 2 MG/ML Vial IV.PUSH PRN (10:19)
[2018-05-03] MEDS: Senna/Docusate Sodium 8.6/50 MG Tablet PO SCH (12:11)
--- NOTE | 2018-05-03 15:11 | P.PNPAL ---
Palliative care notified patient's 3 sons (Wale, Ortega, and Ward) were at bedside. Upon arrival to Ms. Alegre' room, all three son's present. Ms. Alegre remains unresponsive, respirations moderately labored, shallow breathing. No signs of pain or discomfort. Medical update provided by SHANNAN Rush. Questions from family answered to their satisfaction. Introduced hospice services. Family wishes to pursue hospice services with [facility]. [facility] placement desired as roger Echevarria lives in [place]. Palliative care spoke with 4th son, Girma Bishop on 05/02. His wishes at that time were comfort oriented. All sons/HCPs in agreement for hospice.[facility] - Hospice consult placed. RN, block and case maker, and hospice aware. Important Contacts: Son-Ortega Thakur [phone] willing to serve as healthcare proxy Roger-Wale Mack [phone]-willing to serve as healthcare proxy Roger-Girma Bishop [facility] [phone] [phone] [facility]-willing to serve as healthcare proxy aCio Thakur [phone]-willing to serve as healthcare proxy
[2018-05-03 17:33] VITALS: BP 112/63; PULSE 127; RESP 24; TEMP 97.3; O2SAT 93
--- NOTE | 2018-05-06 13:14 | P.DS ---
Date of admission: 04/27/18 14:43 Primary care physician: Milana Mendez MD Brief History from admission: 82 year old female PMH bilateral breast cancer presents with continued weakness and shortness of breath. She was discharged this week from hospital after right pleural effusion thoracentesis. She said when she got home she was too nauseous to eat and had difficulty walking and standing from fatigue. The morning of admission she was too weak to put in her dentures and started to fall grabbing the toilet and lowering herself to the ground. She crawled out of the bathroom and had the EMS bring her to the hospital. She says the shortness of breath is with activity. She has some intermittent chest pain that is unchanged from her earlier admission and reproducible with pressing on her chest. She has been drinking well but not eating. She had some fever at night. No change in frequency of urination, but noticed urine darker in color. She has had 5-6 days of constipation. She usually goes every other day. She tried laxatives and an enema with no relief. She's been taking the oxycodone prescribed to her this week when she was discharged for her chest pain. She was first diagnosed with breast cancer in 2009. She was receiving oral chemo therapy until a month ago when she started having weakness and shortness of breath so her oncologist, Dr. Sharma had her stop active treatment. She lives at home and takes care of her brother. Denies any drug, alcohol, or tobacco use. She has an extremely high white count out of proportion to any sort of obvious infection. When asked she has not had any recent injections suggestive of Neupogen or other similar products. She does have a long history of breast cancer but with her new symptoms of fever or sweating high calcium as well as very elevated white count she could be moving into a new illness besides the breast cancer. DS: Diagnosis - Discharge Diagnosis (1) Shortness of breath Status: Acute (2) Hypercalcemia Status: Acute (3) Weakness Status: Acute (4) Bilateral breast cancer Status: Acute (5) Nutrition, metabolism, and development symptoms Status: Acute DS: Summary Hospital Course: 82 year old female PMH bilateral breast cancer presented with continued weakness and shortness of breath. Earlier in week was discharged after a right thoracentesis for R pleural effusion. Was given oxycodone on discharged. Constipation for 5-6 days. On admission septic with WBC 38.1 and tachycardia. Hypercalcemic 12.4. Was given 1 L NS bolus and started on cefepime and azithromycin for possible pneumonia. Put on 2 L NC. Abdominal x-ray: No evidence of free intraperitoneal gas; visualized bowel loops are unremarkable. Chest X-ray: Right basilar pleural-parenchymal density as seen on previous study. Nodule left lower lobe. UA negative nitrates, leuk esterase, and few WBC. Blood cultures with no growth to date. Oncology, palliative care consulted. Calcium justice to 13.3 on 04/29. Bone scan 04/29: Minimal asymmetrical uptake in R talus. Unusual location metastatic disease. Give one-time dose of zoledronic acid IV. 04/30 WBC increase to 62.9 and Calcium 14.9 Given 20 mg IV lasix. Patient was unable to hold conversation due to fatigue and confusion. Head CT: No acute findings. Hypodensity in the bilateral centrum semiovale and periventricular white matter most characteristic of chronic microvascular ischemic disease. Remote left cerebellar lacunar infarct suspected. No signs of acute infarct, hemorrhage or mass. CT abdomen/pelvis: no acute abdominal process , There are nodules in the left lower lobe characteristic of metastatic disease is seen on the prior exam. Large right-sided effusion is present with right basilar atelectasis. Pericardial effusion is present which is unchanged, marked enlarged fibroid uterus. CT chest: Complete collapse of the right lung secondary to a large pleural effusion occupying the entire right hemithorax; nonspecific pleural thickening suspicion for possible metastatic disease, Irregular left breast mass presumably the patient's known malignancy, Pericardial effusion, and adrenal nodule. Palliative care consulted. Patient given Ativan for discomfort and morphine for shortness of breath as needed as well as lasix BID. Patient made DNR by 4 sons and then on 05/03 3 sons Wale, Ortega, and Ward agreed to hospice care at [facility]. Patient was transported. - Time Spent with Patient Total time spent providing and/or coordinating discharge services: Less than 30 minutes - Quality: VTE Deep Vein Thrombosis/Pulmonary Embolism Present on Admission: No Exam Narrative: GENERAL: Sweating and appears chronically ill. Nasal cannula in place. obtunded examining a change in her breathing pattern she is not quite agonal but is sometimes gasping for breath. However she is not alert at all. She is not actively moaning which she had done earlier. SKIN: Warm and dry. HEAD: Atraumatic. Normocephalic. EYES: Eyes are closed at this point ENT: No nasal bleeding or discharge. NECK: Trachea midline. No JVD. CARDIOVASCULAR: Tachycardic to the 100s with an occasional irregular rhythm RESPIRATORY: She is belly breathing at times diminished breath sounds in the right lung velazquez, dullness to percussion over the right lung field. No rales appreciated GASTROINTESTINAL: Abdomen soft, mildly distended. Hypoactive bowel sounds. Hepatic and splenic margins not palpable. Abdominal breathing noted. MUSCULOSKELETAL: Extremities without clubbing, cyanosis, or edema. No obvious deformities. Some edema in her lower extremities NEUROLOGICAL: Obtunded. No obvious cranial nerve deficits. Not able to assess motor or sensory due to her mental condition PSYCHIATRIC: Patient no longer answering questions. Results Procedures completed during hospitalization: None - Impressions ITS Impressions Abdomen X-Ray 04/27/18 12:06 CONCLUSION: 1. No acute abnormalities. 2. Right basilar pleural-parenchymal density. 3. Chest X-Ray 04/27/18 12:06 CONCLUSION: 1. Right basilar pleural-parenchymal density as seen on previous study. 2. Nodule left lower lobe. Bone Scan Nuclear Medicine 04/29/18 00:00 CONCLUSION: 1. Minimal asymmetrical uptake in the right talus when compared to the left. 2. Unusual location metastatic disease. Correlation with plain films is suggested. Head CT 04/30/18 00:00 CONCLUSION: 1. No acute findings. . Abdomen/Pelvis CT 05/01/18 00:00 CONCLUSION: No evidence of acute abdominal process. Large right effusion Markedly enlarged fibroid uterus. Chest CT 05/01/18 00:00 CONCLUSION: 1. Complete collapse of the right lung secondary to a large pleural effusion occupying the entire right hemithorax. 2. There is mild pleural thickening also noted which is nonspecific though should be viewed with suspicion for possible metastatic disease. 3. Irregular left breast mass presumably the patient's known malignancy. 4. Pericardial effusion. 5. Adrenal nodule. Discharge Plan - Discharge Disposition Patient Disposition: 50 Hospice/Home - Discharge Condition Condition: Stable - Discharge Order Discharge Orders: Discharge Order (Routine); Ordered 05/03/18 Ordered By: Desiree Person - Physicians Team Primary Care Provider: Milana Mendez Attending Provider: Ronel Burton Other Providers: Leonardo Pete MD ; Leann Cortez MD
== END 2018-05-03 21:11 | disposition hospice, home (50) ==
LOC: NEPD 11:43 → NEDA 14:43 → N06 15:50
PROVIDERS: ADMIT Family Medicine; ATTEND Family Medicine